=== PATIENT | male | born 1965 | race Caucasian/White ===

== ENCOUNTER → 2021-02-20 12:38 | Outpatient (BNVA) | payer OTHER, SELFPAY | PROVIDERS: PCP Internal Medicine; Visit Provider Nurse Practitioner Gerontology | DX: E11.42 Type 2 diabetes mellitus with diabetic polyneuropathy (principal); E11.65 Type 2 diabetes mellitus with hyperglycemia; E78.5 Hyperlipidemia, unspecified; I10 Essential (primary) hypertension | CPT/HCPCS: 99212 ==

== ENCOUNTER 2023-01-20 08:12 | Outpatient (REF) | payer OTHER, SELFPAY ==
[2023-01-20 08:31] LABS: MANUAL DIFF FLAG NO
[2023-01-20 08:45] LABS: Basophils Percent Auto 0.4 % (0-2); Eosinophils Absolute Auto 0.2 X10*3/uL (0.0-0.4); Eosinophils Percent Auto 1.5 % (0-4); Hematocrit 43.6 % (42.0-52.0); Imm Gran Abs Auto 0.03 X10*3/uL (0.00-0.03); Imm Gran Pct Auto 0.3 % (0.0-0.4); Lymphocytes Absolute Auto 2.1 X10*3/uL (1.2-4.9); Lymphocytes Percent Auto 20.2 % (20-40); Mean Corpuscular HGB Conc 34.4 g/dl (31.0-36.0); Mean Corpuscular Hemoglobin 30.4 pg (27.0-33.0); Mean Corpuscular Volume 88.4 fL (80.0-98.0); Mean Platelet Volume 10.2 fL (9.4-12.4); Monocytes Percent Auto 9.6 % (2-11); Neutrophils Absolute Auto 7.1 x10*3/uL (2.0-8.3); Platelet Count 230 X10*3/uL (160-400); Red Blood Count 4.93 X10*6/uL (4.60-5.80); Red Cell Distribution Width 13.9 % (11.0-16.0); White Blood Count 10.5 X10*3/uL (4.8-10.8)
[2023-01-20 09:15] LABS: Alanine Aminotransferase 15 U/L (0-40); Albumin Level 4.2 g/dL (3.5-5.0); Alkaline Phosphatase 61 U/L (39-117); Anion Gap 14 (12-20); Aspartate Amino Transferase 13 U/L (5-37); Blood Urea Nitrogen 15 mg/dL (9-16); Calcium 9.3 mg/dL (8.4-10.2); Carbon Dioxide 27 mmol/L (22-29); Chloride 100 mmol/L (96-108); Cholesterol 269 mg/dL; Estimated Glomerular Filt Rate > 60; Glucose Fasting 239 mg/dL (60-99); HDL Cholesterol 34 mg/dL; LDL Cholesterol Calculated 188 mg/dl; Potassium 4.5 mmol/L (3.3-5.1); Sodium 136 mmol/L (135-145); Total Protein 7.3 g/dL (6.5-8.0); Triglycerides 239 mg/dL
[2023-01-20 09:40] LABS: Creatinine Urine 158.31 mg/dL; Microalbum/Creatinine Ratio Ur 44.8 ug/mg cr
[2023-01-20 09:46] LABS: Folate 13.7 ng/mL (> or = 4.0); Vitamin B12 513 pg/mL (200-900)
== END 2023-01-20 08:13 | disposition home or self-care (01) ==
LOC: HO.LAB 08:12
PROVIDERS: PCP Internal Medicine; Visit Provider Internal Medicine
DX: Z00.00 Encounter for general adult medical examination without abnormal findings (principal); E11.42 Type 2 diabetes mellitus with diabetic polyneuropathy; E11.9 Type 2 diabetes mellitus without complications; Z13.0 Encounter for screening for diseases of the blood and blood-forming organs and certain disorders involving the immune mechanism
CPT/HCPCS: 36415; 80053; 80061; 82043; 82607; 82746; 84443; 85025

== ENCOUNTER 2024-02-13 11:51 | Outpatient (AMB) | payer OTHER, SELFPAY ==
--- NOTE | 2024-02-13 13:19 | MHC.OFFWIV ---
Intake Vital Signs 02/13/24 13:20 Height 5 ft 11 in BP 132/84 Blood Pressure Location Lt brachial Position Sitting Pulse 97 Pulse Source Pulse Oximeter Temp 98.2 F Temp Source Oral Pulse Oximetry (%) 99 Oxygen Delivery Method Room Air Intake Visit Reasons: EP: Diabetic: L foot swollen/redness Intake Note: pt saw his foot MD and had his toe nails trimmed and pt was told he had edema and his foot is now very swollen and tender and itchy and pt has been wearing compression stocking Patient Tobacco Use Status: Never used Tobacco Allergies liraglutide Adverse Reaction (Unknown, Verified 02/14/24 11:59) diarrhea HPI EP: Diabetic: L foot swollen/redness HPI Details Patient is 58-year-old male with history of diabetes who has been noncompliant with treatment for the last year, who comes to the walk-in clinic with worsening edema to the left foot, that is now becoming red sore and itchy. He states that he had become overwhelmed with taking care of his elderly father for the last year, and had lost track of following up with his diabetes management, as his cad designer drafter had left and he was not referred to a new provider. He last had his blood work checked a year ago by his primary care. He states that he has tried multiple medications in the past, but had to stop some due to GI side effects . He denies ever being started on insulin. He states that he did continue to follow up with Podiatry evaluation and nail care though, and had seen his laboratory chief a few weeks ago who had done x-rays to his left foot as he had some mild edema at that time, with no acute trauma known. He reports that the xrays were normal . He states that the laboratory chief had advised that he start wearing compression socks, but that the swelling had instead only worsened, and he was unable to tolerate the compression socks. No report of severe pain, numbness or tingling, fever or chills, nausea vomiting or diarrhea, dizziness or weakness, myalgias or malaise, or other significant associated symptoms. No history of gouty or other inflammatory arthritis reported. [facility] Medical History (Updated 02/15/24 @ 23:04 by Monika Santiago MD) Charcot's joint of foot due to diabetes Swelling of left foot Osteomyelitis of left foot Obesity Type 2 diabetes mellitus with diabetic polyneuropathy Hyperlipidemia LDL goal <100 Essential hypertension Diabetes mellitus with hyperglycemia Surgical History Hx of colonoscopy No history of previous surgery Family History Father No problems noted. Mother No problems noted. Social History Household Members: Family Household Members Other:: 1 Housing: House Patient Tobacco Use Status: Never used Tobacco Smoked in Last 30 Days: No e-Cigarette/Vaping Use: Never Used Patient Interested in Nicotine Replacement: No Patient Given Instructions on How to Stop Smoking: No Second Hand Smoke Exposure: No Use of substances other than those prescribed or required for medical reasons: No Currently Displaying Signs/Symptoms of Drug Intoxication Withdrawal: No Any prior treatment program specific to substance use: No Have you been hit, kicked, punched, or otherwise hurt by someone within the past year? If so, by whom?: No Do you feel safe in your current relationship?: No Current Relationship Is there a partner from a previous relationship who is making you feel unsafe now?: No Are you made to feel afraid or neglected: No Advance Directives: No Advance Directives Information Provided: No Do you have thoughts of harming others: None Do you have a plan to hurt others: No Plan Recently lost weight without trying: No Eating poorly because of decreased appetite: No Nutrition Risks: No Nutritional Risk Poor oral hygiene: No service: No Current occupational status: unemployed Cognitive needs: No Hearing needs: No Vision needs: No Review of Systems Const All systems reviewed & are unremarkable except as noted in HPI and below Physical Exam Vital Signs: Last Vital Signs Temp 98.2 F 02/13/24 13:20 Pulse 97 02/13/24 13:20 BP 132/84 02/13/24 13:20 Pulse Ox 99 02/13/24 13:20 Oxygen Delivery Method Room Air 02/13/24 13:20 Const General: cooperative, healthy appearing, comfortable, no acute distress, alert, awake, Physically active and well groomed; No anxious, diaphoretic, ill appearing, intoxicated appearing, poor hygiene or tired appearing Nutritional Appearance: average body habitus Limitations: no limitations Resp Effort & Inspection: normal respiratory effort Cardio Rate: regular rate Extrem Left lower extremity: foot (Very mild erythema over the ankle area) Details: normal capillary refill, abnormal to inspection, tenderness (Mild apparent tenderness diffusely), abnormal ROM of toe (Due to swelling), warmth, edema Location: of the dorsal foot and diffusely and vascular exam Details: posterior tibial pulse present and normal capillary refill; not cool and no cyanosis; abnormal to inspection Results AMB Hemoglobin A1c AMB Hemoglobin A1c 12.7 % Last Edit by Aaliyah Sutton CMA on 02/13/24 13:40 Results Reviewed Results Reviewed: Laboratory Last Values Hgb A1c (Clinic) 12.7 % (4.0-6.0) H 02/13/24 13:39 Assessment & Plan Assessment & Plan (1) Cellulitis of foot: Code(s): L03.119 - Cellulitis of unspecified part of limb Plan: Patient with uncontrolled diabetes due to non-compliance with diabetes management over the past year, who presents to the walk in with subacute left foot edema, mild erythema and tenderness/pruritis, with A1c 12.7. He does not have a history of gout or other inflammatory arthritis. He reports a foot x-ray that was apparently normal, but has had progressively worsening symptoms, and no further imaging. No gouty or other inflammatory arthritis history to explain presentation. We discussed that he has a worrisome looking foot in the setting of uncontrolled diabetes that is likely an infection, which could have deep tissue involvement, or even spread to his blood. I advised him that the best place for him for further evaluation and treatment, not only for his foot but also for his diabetic management, was at the emergency department. He stated that this was out of the question as his father just and the services would be in a few days , so he declined AMA. I told him that this could be limb and/or life threatening for him, and he stated that he did understand this. He pleaded to be treated with antibiotics outpatient to see if it would improve. I told him that I would start him on a course of antibiotics only if he agreed to get a CBC done today and to go to the emergency department ISABEL if there was no definite improvement by tomorrow, or if he had any worsening changes. He agreed to this. I told him that if he did not go to the ED over the weekend, then he definitely needs to follow up on Thursday (in 2 days), back at the walk in. He agreed to this also. Will reach out to him with lab results when available. Orders: Orders AMB Hemoglobin A1c 02/13/24 E11.65 - Type 2 diabetes mellitus with hyperglycemia Complete Blood Count Auto Diff 02/13/24.65 - Type 2 diabetes mellitus with hyperglycemia Basic Metabolic Panel Fasting 02/13/24.65 - Type 2 diabetes mellitus with hyperglycemia Medications: New cephalexin 500 mg PO QID 10 days 40 caps 0RF ketoconazole 2% Continue to apply until symptoms resolve, up to 2 weeks 1 appl topical BID 2 weeks 60 grams 0RF Coding Level of Care Code Est Pt Level 4 (82523) Diagnoses Cellulitis of foot L03.119
[2024-02-13 13:20] VITALS: BP 132/84; PULSE 97; TEMP 36.8; O2SAT 99
== END 2024-02-13 14:09 | disposition home or self-care (01) ==
PROVIDERS: PCP Internal Medicine; Visit Provider Physician Assistant Medical
DX: L03.119 Cellulitis of unspecified part of limb (principal); E11.65 Type 2 diabetes mellitus with hyperglycemia
CPT/HCPCS: 83036; 99051; 99214

== ENCOUNTER 2024-02-13 13:54 | Outpatient (REF) | payer OTHER, SELFPAY ==
[2024-02-13 15:23] LABS: MANUAL DIFF FLAG NO
[2024-02-13 15:33] LABS: Basophils Percent Auto 0.3 % (0-2); Eosinophils Absolute Auto 0.2 X10*3/uL (0.0-0.4); Eosinophils Percent Auto 1.8 % (0-4); Hematocrit 39.8 % (42.0-52.0); Hemoglobin 13.9 g/dl (14.0-18.0); Imm Gran Abs Auto 0.07 X10*3/uL (0.00-0.03); Imm Gran Pct Auto 0.6 % (0.0-0.4); Lymphocytes Absolute Auto 1.5 X10*3/uL (1.2-4.9); Lymphocytes Percent Auto 12.6 % (20-40); Mean Corpuscular HGB Conc 34.9 g/dl (31.0-36.0); Mean Corpuscular Volume 85.8 fL (80.0-98.0); Mean Platelet Volume 10.9 fL (9.4-12.4); Monocytes Absolute Auto 0.9 X10*3/uL (0.1-1.2); Monocytes Percent Auto 7.5 % (2-11); Neutrophils Absolute Auto 9.2 x10*3/uL (2.0-8.3); Neutrophils Percent Auto 77.2 % (45-73); Platelet Count 265 X10*3/uL (160-400); Red Blood Count 4.64 X10*6/uL (4.60-5.80); Red Cell Distribution Width 12.7 % (11.0-16.0); White Blood Count 11.9 X10*3/uL (4.8-10.8)
== END 2024-02-13 13:55 | disposition home or self-care (01) ==
LOC: HO.HMGCLDS 13:54
PROVIDERS: PCP Internal Medicine; Visit Provider Physician Assistant Medical
DX: E11.65 Type 2 diabetes mellitus with hyperglycemia (principal)
CPT/HCPCS: 36415; 85025

== ENCOUNTER 2024-02-14 11:56 | Inpatient (IN) | payer OTHER, SELFPAY ==
--- NOTE | ~2024-02-14 | XR_ITS ---
EXAMINATION: XR FOOT, LEFT CLINICAL INFORMATION: Cellulitis COMPARISON: None available. TECHNIQUE: AP, lateral, and oblique views of the left foot. FINDINGS: There is soft tissue swelling around the left foot tarsal and metatarsal level, no subcutaneous emphysema, no associated osteolytic changes to suggest osteomyelitis. Loss of midfoot arch suggesting pes planus. There is a large inferior calcaneal spur and soft tissue calcification along the plantar wrists. There is probably a fracture at the base of the second and third metatarsal difficult to visualize directly due to bone overlap. XR/XR foot LT min 3V IMPRESSION: 1. There are likely fractures at the base of the second and third metatarsal difficult to visualize directly due to bone overlap. Please correlate with patient's clinical history and Consider correlation with follow-up cross-sectional imaging CT scan or MRI for further investigation. 2. Soft tissue swelling around the left foot tarsal and metatarsal level. 3. No radiographic evidence of osteomyelitis. 4. Loss of midfoot arch suggesting pes planus. 5. Large inferior calcaneal spur.
--- NOTE | ~2024-02-14 | MR_ITS ---
EXAMINATION: MR FOOT WITHOUT AND WITH CONTRAST, LEFT CLINICAL INFORMATION: Question osteomyelitis on CT. COMPARISON: X-ray and CT 02/14/2024. TECHNIQUE: MRI of the left foot was performed before and after the intravenous administration of 10 mL Gadavist on a high-field scanner. FINDINGS: There is dislocation of the second-fifth tarsometatarsal joints, with dorsal and lateral dislocation of the metatarsals with respect to the cuneiform/cuboid. There is edema with bright-T2/low-T1 signal, extensively involving the bones. Diffuse edema signal in the medial cuneiform, middle cuneiform, lateral cuneiform; severe edema involving the proximal aspects of the second-fifth metatarsals; edema to a lesser degree more diffusely throughout the second and third metatarsals; diffuse severe edema in the navicular; diffuse cuboid edema. There is associated enhancement in the postcontrast sequences. Portions of the edematous bones are nonenhancing, such as in the middle cuneiform, portion of the lateral cuneiform, which may be related to decreased vascularity. Multiple edematous ossific densities in the region of the tarsometatarsal joints could reflect fractures versus bone fragmentation/destructive changes, involving the marginating bones such as the distal cuneiforms, bases of the second, third and fourth metatarsals (better characterized on the recent CT scan). There is evidence of impaction/impingement or deformity of the medial aspect of the distal medial navicular, and the lateral aspect of the cuboid. Differential considerations include osteomyelitis, Charcot arthropathy, posttraumatic etiology, or a combination of these. There is edema and enhancement in the surrounding soft tissues and muscles compatible with cellulitis/myositis. There is severe dorsal foot soft tissue swelling with edema/cellulitis. No organized fluid collection is seen in the superficial tissues. Visualized tendons intact. No appreciable tenosynovitis. Edema in the intrinsic muscles of the foot, could reflect myositis, sequela of denervation changes, or a combination of these. Visualized plantar aponeurosis is intact. MR/MR foot LT wo/w con IMPRESSION: 1. Comminuted fracture and dislocation of the second-fifth tarsometatarsal joints. Multiple ossific fragments in the Lisfranc joint could be related to fracture, bony fragmentation/destructive changes from the underlying pathology. Extensive severe edema and enhancement in the midfoot, including involving the cuneiforms, metatarsals, cuboid, navicular. Some of the edematous bones and nonenhancing, which could reflect sequela of decreased vascularity. Differential considerations for the extensive abnormality includes osteomyelitis, Charcot arthropathy, posttraumatic etiology, or a combination of these. Recommend clinical correlation and management. PET/CT, WBC bone scan can be considered for further evaluation as clinically warranted. 2. There is edema and enhancement in the soft tissues and muscles surrounding the midfoot, indicative of cellulitis, osteomyelitis. 3. Severe dorsal soft tissue swelling with edema/cellulitis. No organized fluid collection/abscess seen. 4. Edema in the intrinsic muscles of foot could reflect myositis or sequela of denervation. The report will be called to the ordering clinician by a [facility] Physician Herbicide Sprayer.
--- NOTE | ~2024-02-14 | CT_ITS ---
CT foot Clinical indication fractures tenderness COMPARISON: Prior x-ray same day earlier. TECHNIQUE: Computed axial, sagittal and coronal images acquired left foot, department's standard protocol. Radiation does 155 MG Y FINDINGS: Bones: There is a fracture or dislocation of the base of the second metatarsal, multiple bony fragments, raising concern for possible underlying superimposed process possible infection osteomyelitis in the right clinical setting. There are small bone fragments and subluxation of the base of the third metatarsal. There is also fracture impaction intertarsal of the medial cuneiform on the navicular bone. Lateral subluxation second third and fourth tarsometatarsal joints. The calcaneus is intact. Talus and subtalar joints are normal. The ankle is intact. There is large inferior and a small posterior calcaneal spurs. There is bone island in the calcaneus. Metatarsophalangeal and interphalangeal joints are normal. There is extensive soft tissue swelling along the dorsal aspect of the foot, could be cellulitis or edema. CT/CT foot LT wo IV con IMPRESSION: 1. Comminuted fracture/dislocation at the base of the second metatarsal, multiple bony fragments, raising concern for possible underlying or superimposed process possible infection osteomyelitis in the right clinical setting. 2. Small fracture/dislocation at the base of the third metatarsal. 3. Impaction fracture intertarsal medial cuneiform on the navicular bone. 4. Lateral subluxation of the second third and fourth tarsometatarsal joints. 5. Extensive soft tissue swelling along the dorsal aspect of the foot, could be cellulitis or edema. 6. Calcaneal spurs.
--- NOTE | ~2024-02-14 | US_ITS ---
EXAMINATION: US VENOUS ULTRASOUND WITH DOPPLER LOWER EXTREMITY, LEFT CLINICAL INFORMATION: Swelling COMPARISON: None available. TECHNIQUE: Ultrasound of the deep veins is performed from the hip to the calf with compression sonography and color and pulse Doppler assessment. Spectral analysis with color-flow imaging is performed. FINDINGS: There is normal venous compression and respiratory variation and augmented flow. The visualized common femoral vein, superficial femoral vein, profunda femoral vein, popliteal vein, and the trifurcation region shows no evidence of deep venous thrombosis. There is no significant popliteal fossa cyst. If the patient's symptoms persist, followup ultrasound in 5 days 7 days might be of value to exclude proximal propagation from a non-visualized calf vein. US/US venous duplex LE LT IMPRESSION: No DVT demonstrated in the left lower extremity.
[2024-02-14 11:59] VITALS: BP 158/69; PULSE 78; RESP 18; TEMP 36.6; O2SAT 99; BMI 30.3
--- NOTE | 2024-02-14 11:59 | ED_ITS ---
HPI - General Adult General Chief complaint: Extremity Injury, Lower Stated complaint: Swelling left foot Time Seen by Provider: 02/14/24 12:23 Source: patient Mode of arrival: ambulatory Limitations: no limitations History of Present Illness HPI narrative: 58-year-old male history of diabetes presents to the ED for left foot swollen and redness for the past 3 days. Patient was seen yesterday at urgent care and started on antibiotics. Patient denies any recent trauma to the foot, calf pain, chest pain, shortness of breath, recent long travel, or recent surgery. Related Data Home Medications Medication Instructions Recorded Confirmed cholecalciferol (vitamin D3) 125 125 mcg PO DAILY 02/14/24 02/14/24 mcg (5,000 unit) tablet (Vitamin D3) Previous Rx's Medication Instructions Recorded atenolol 50 mg tablet 50 mg PO DAILY #90 tabs 02/09/23 blood sugar diagnostic (FreeStyle #10 ea 04/24/23 Test strips) lancets 28 gauge (FreeStyle #100 ea 06/08/23 Lancets) glyburide 5 mg tablet See Rx Instructions PO .COMPLEX 30 06/15/23 days #270 tabs cephalexin 500 mg capsule 500 mg PO QID 10 days #40 caps 02/13/24 ketoconazole 2 % topical cream 1 appl topical BID 2 weeks #60 02/13/24 grams Allergies Allergy/AdvReac Type Severity Reaction Status Date / Time liraglutide AdvReac Unknown diarrhea Verified 02/14/24 11:59 Review of Systems 2 Review of Systems: Left foot pain swelling Yes all other systems are reviewed and are negative PMFSH Past Medical History Medical History (Updated 02/14/24 @ 20:33 by Jazzmine Huitron RN) Osteomyelitis of left foot Obesity Type 2 diabetes mellitus with diabetic polyneuropathy Hyperlipidemia LDL goal <100 Essential hypertension Diabetes mellitus with hyperglycemia Surgical History Hx of colonoscopy No history of previous surgery Family History Family History Father No problems noted. Mother No problems noted. Social History Social History Household Members: Family Household Members Other:: 1 Housing: House Patient Tobacco Use Status: Never used Tobacco Smoked in Last 30 Days: No e-Cigarette/Vaping Use: Never Used Patient Interested in Nicotine Replacement: No Patient Given Instructions on How to Stop Smoking: No Second Hand Smoke Exposure: No Use of substances other than those prescribed or required for medical reasons: No Currently Displaying Signs/Symptoms of Drug Intoxication Withdrawal: No Any prior treatment program specific to substance use: No Have you been hit, kicked, punched, or otherwise hurt by someone within the past year? If so, by whom?: No Do you feel safe in your current relationship?: No Current Relationship Is there a partner from a previous relationship who is making you feel unsafe now?: No Are you made to feel afraid or neglected: No Advance Directives: No Advance Directives Information Provided: No Do you have thoughts of harming others: None Do you have a plan to hurt others: No Plan Recently lost weight without trying: No Eating poorly because of decreased appetite: No Nutrition Risks: No Nutritional Risk Poor oral hygiene: No service: No Current occupational status: unemployed Cognitive needs: No Hearing needs: No Vision needs: No Physical Exam ED Vital Signs: Vital Signs - 24 hr 02/14/24 11:59 Temperature 97.9 F Pulse Rate 78 Respiratory Rate 18 Blood Pressure 158/69 H Pulse Oximetry 99 BMI result Body Mass Index 30.3 Const General: cooperative, healthy appearing, comfortable, no acute distress, well developed, alert, awake and Physically active Orientation/consciousness: oriented to person, oriented to place and oriented to time [facility] Head: Yes normal to inspection, Yes No palpable skull fracture present, Yes normocephalic, Yes atraumatic and No abrasion Eyes General: appearance normal, both eyes and all related structures Neck Neck: Yes normal visual inspection, Yes full ROM, Yes no lymphadenopathy, Yes no meningeal signs, Yes trachea midline, Yes supple, No anterior neck swelling and No tender Chest Chest palpation & inspection: normal inspection of the chest and normal palpation of entire chest wall Resp Effort & Inspection: normal respiratory effort and able to speak in complete sentences Auscultation: clear to auscultation bilaterally Cardio Jugular venous distension: no JVD Heart sounds: S1 normal heart sound present and S2 normal heart sound present GI Inspection: Yes normal to inspection Palpation (GI): Soft to palpation, not firm, nontender, no guarding and not rigid General: No CVA tenderness Back/Spine/Pelvis Back: No CVA tenderness and No back tenderness Skin General skin exam: no rashes or lesions noted, elasticity normal and turgor normal Neuro General: oriented to person, oriented to place, oriented to time, gait normal, tone normal, moves all extremities, Normal light touch and pain sensation, no meningeal signs, no focal motor deficits, CN's II-XI intact bilaterally and normal sensation to monofilament Extrem Other: positive for warmth, swelling, and redness. Vascular/ motor/neuro exam intact Psych Appearance: grossly normal, well kempt and not disheveled Course Course Course Narrative: This is an RME: Additional HPI, ROS, PE not included below will be deferred to primary provider. Patient is a 58-year-old male who presents emergency department for evaluation swelling of the left foot x2 weeks. He went to an urgent care yesterday where he was started on antibiotics, reports some mild decrease in swelling, but he reports the warmth has increased thus prompting him to come to ED. Pain 2/10. noted extension of redness past the marked region. Medications Administered Generic Name Dose Route Start Last Admin Trade Name Freq PRN Reason Stop Dose Admin Atenolol 50 mg 02/15/24 09:00 02/15/24 08:11 Atenolol 50 Mg Tablet PO 50 mg DAILY TERRENCE Administration Protocol Clotrimazole 1 appl 02/14/24 21:00 02/15/24 20:27 Clotrimazole 1 % Cream 15 Gm Tube TOPICAL 1 appl BID TERRENCE Administration Enoxaparin Sodium 40 mg 02/14/24 16:30 02/15/24 16:21 Enoxaparin Sodium 40 Mg/0.4 Ml Syringe SUBCUT Not Given Q24H TERRENCE Piperacillin Sod/Tazobactam 100 mls @ 200 mls/hr 02/14/24 19:30 02/15/24 21:00 Sod 4.5 gm/ Sodium Chloride IV Infused Q6H TERRENCE Infusion Vancomycin HCl 750 mg/ Sodium 265 mls @ 265 mls/hr 02/15/24 17:00 02/15/24 18:49 Chloride IV Infused Q8H TERRENCE Infusion Insulin Human Lispro 0 unit 02/14/24 21:00 02/15/24 20:48 Insulin Lispro 100 Unit/Ml 3 Ml Vial SUBCUT Not Given QIDACHS REPLACED BY [facility] Protocol Metformin HCl 500 mg 02/15/24 17:00 02/15/24 16:55 Metformin Hcl 500 Mg Tablet PO Not Given BIDWM REPLACED BY [facility] Sodium Chloride 3 ml 02/15/24 00:00 02/15/24 20:23 0.9 % Sodium Chloride Flush 3 Ml Syringe IVFLUSH 3 ml QSHIFT TERRENCE Administration Vitamin D 125 mcg 02/15/24 09:00 02/15/24 08:11 Cholecalciferol (Vitamin D3) 25 Mcg Tablet PO 125 mcg DAILY REPLACED BY [facility] Administration Discontinued Medications Generic Name Dose Route Start Last Admin Trade Name Cecilia PRN Reason Stop Dose Admin Gadobutrol 10 ml 02/15/24 12:46 02/15/24 12:47 Gadobutrol 10 Ml Vial IVPUSH 02/15/24 12:47 10 ml ONCE ONE Administration Sodium Chloride 1,000 mls @ 999 mls/hr 02/14/24 13:00 02/14/24 14:18 Ns IV 02/14/24 14:00 Infused .Q1H1M STA Infusion Piperacillin Sod/Tazobactam 50 mls @ 100 mls/hr 02/14/24 13:25 02/14/24 14:18 Sod 3.375 gm/ Sodium Chloride IV 02/14/24 13:54 Infused ONCE ONE Infusion Vancomycin HCl 2,000 mg in 500 mls @ 250 mls/hr 02/15/24 08:00 02/15/24 11:53 Vancomycin/Ns IV 02/15/24 09:59 Infused ONCE ONE Infusion Insulin Glargine 24 unit 02/14/24 21:00 02/14/24 22:08 Insulin Glargine,Hum.Rec.Anlog 100 Unit/Ml 10 Ml Vial SUBCUT 24 unit BEDTIME TERRENCE Administration Medical Decision Making Medical Decision Making MDM Narrative: 58-year-old male with left foot swelling and redness appear as cellulitis x-ray labs ordered. ESR CRP added. Ultrasound lower extremity attitude rule out DVT. As per patient REdness passed the marker placed yesterday at urgent care. 3:45: CT scan showed fractures with osteomyelitits. Spoke With SHAILESH BUCHANAN who states patient could be admitted to [facility]. Dr. Ulloa Accepted the case for admission. Patient given antibiotics. Patient recieved fluids. Differential Diagnosis Differential Diagnoses: The differential diagnosis associated with the presentation includes (cellullits, osteomyelitits, fracture, DVT) Admission/Observation Consideration of admission/observation: Escalation of care including admission/observation considered Consult Healthcare Provider Management of the patient was discussed with: Hospitalist (Dr. Ulloa) and Russian Language Professor (SHAILESH BUCHANAN) Lab Data MDM Lab Attestation statement: I reviewed the patient's lab results. 02/15/24 06:06 02/15/24 06:06 Labs: Lab Results 02/14/24 02/14/24 02/14/24 Range/Units 12:22 12:58 15:51 WBC 12.1 H (4.8-10.8) X10*3/uL RBC 4.77 (4.60-5.80) X10*6/uL Hgb 14.1 (14.0-18.0) g/dl Hct 39.9 L (42.0-52.0) % MCV 83.6 (80.0-98.0) fL MCH 29.6 (27.0-33.0) pg MCHC 35.3 (31.0-36.0) g/dl RDW 12.5 (11.0-16.0) % Plt Count 324 (160-400) X10*3/uL MPV 9.8 (9.4-12.4) fL Immature Gran % (Auto) 0.3 (0.0-0.4) % Neut % (Auto) 75.3 H (45-73) % Lymph % (Auto) 14.6 L (20-40) % [place] % (Auto) 7.1 (2-11) % Eos % (Auto) 2.3 (0-4) % Baso % (Auto) 0.4 (0-2) % Lymph # (Auto) 1.8 (1.2-4.9) X10*3/uL [place] # (Auto) 0.9 (0.1-1.2) X10*3/uL Eos # (Auto) 0.3 (0.0-0.4) X10*3/uL Baso # (Auto) 0.1 (0.0-0.2) X10*3/uL Abs Immat Gran (auto) 0.04 H (0.00-0.03) X10*3/uL Absolute Neuts (auto) 9.1 H (2.0-8.3) x10*3/uL Absolute Nucleated RBC 0.000 (0.0-0.012) X10*3/uL Nucleated RBC % (auto) 0.0 (0.0-0.2) /100WBC ESR 86 H (0-15) MM/HR Sodium 132 L (135-145) mmol/L Potassium 4.5 (3.3-5.1) mmol/L Chloride 98 (96-108) mmol/L Carbon Dioxide 26 (22-29) mmol/L Anion Gap 13 (12-20) BUN 9 (9-16) mg/dL Creatinine 1.13 (0.5-1.4) mg/dL Estim Creat Clear Calc 84.7 Estimated GFR > 60 POC Glucose 258 H (60-115) mg/dL Random Glucose 419 H* (60-115) mg/dL Lactic Acid 2.1 H* (0.5-2.0) mmol/L Lactic Acid F/U @ 2Hr 1.0 (0.5-2.0) mmol/L Calcium 10.1 D (8.4-10.2) mg/dL C-Reactive Protein 13.30 H (< or = 0.50) mg/dL Independent Interpretation I performed an independent interpretation of an: Plain X-Ray and CT Scan Radiology Impression Discussion of test interpretation with radiology: I have reviewed the radiologist's reading. Independent Historian Clinical information obtained from an independent historian. History obtained from or confirmed by: Other (Brother Pancho) External Record Review External record reviewed: Other (Prior visits) Prescription Management I considered prescription management with: Antibiotic Critical Care Time Critical Care Time Critical Care Time: Yes Total Critical Care Time: 60 Attestation: IV fluids and antiboics given for CT scan reading of osteomylitits. Discuus with Ortho and [facility]list Discharge Plan Discharge Clinical Impression: Osteomyelitis Patient Disposition: Admitted As Inpatient Interventions: Admission Worksheet (ED) Last Done: 02/14/24 19:56 Discharge Date/Time: 02/14/24 20:33
[2024-02-14 12:25] LABS: MANUAL DIFF FLAG NO
[2024-02-14 12:26] LABS: Basophils Absolute Auto 0.1 X10*3/uL (0.0-0.2); Basophils Percent Auto 0.4 % (0-2); Eosinophils Absolute Auto 0.3 X10*3/uL (0.0-0.4); Eosinophils Percent Auto 2.3 % (0-4); Hematocrit 39.9 % (42.0-52.0); Hemoglobin 14.1 g/dl (14.0-18.0); Imm Gran Abs Auto 0.04 X10*3/uL (0.00-0.03); Imm Gran Pct Auto 0.3 % (0.0-0.4); Lymphocytes Absolute Auto 1.8 X10*3/uL (1.2-4.9); Lymphocytes Percent Auto 14.6 % (20-40); Mean Corpuscular HGB Conc 35.3 g/dl (31.0-36.0); Mean Corpuscular Hemoglobin 29.6 pg (27.0-33.0); Mean Corpuscular Volume 83.6 fL (80.0-98.0); Mean Platelet Volume 9.8 fL (9.4-12.4); Monocytes Absolute Auto 0.9 X10*3/uL (0.1-1.2); Monocytes Percent Auto 7.1 % (2-11); Neutrophils Absolute Auto 9.1 x10*3/uL (2.0-8.3); Neutrophils Percent Auto 75.3 % (45-73); Platelet Count 324 X10*3/uL (160-400); Red Blood Count 4.77 X10*6/uL (4.60-5.80); Red Cell Distribution Width 12.5 % (11.0-16.0); White Blood Count 12.1 X10*3/uL (4.8-10.8)
[2024-02-14 12:52] LABS: Anion Gap 13 (12-20); Blood Urea Nitrogen 9 mg/dL (9-16); Calcium 10.1 mg/dL (8.4-10.2); Carbon Dioxide 26 mmol/L (22-29); Chloride 98 mmol/L (96-108); Creatinine Clr Calc Pharmacy 84.7; Estimated Glomerular Filt Rate > 60; Glucose Random 419 mg/dL (60-115); Potassium 4.5 mmol/L (3.3-5.1); Sodium 132 mmol/L (135-145)
[2024-02-14] MEDS: 0.9 % Sodium Chloride 1,000 ML 999 ML IV (13:09)
[2024-02-14 13:25] LABS: Lactic Acid 2.1 mmol/L (0.5-2.0)
[2024-02-14] MEDS: Piperacillin Sodium/Tazobactam 3.375 GM in 0.9 % Sodium Chloride 50 ML IV (13:40)
[2024-02-14 13:56] LABS: Erythrocyte Sedimentation Rate 86 MM/HR (0-15)
[2024-02-14 15:03] LABS: Reflex Lactate? Lactic Acid Added
[2024-02-14 15:56] LABS: Glucose, Whole Blood 258 mg/dL (60-115)
[2024-02-14 16:21] VITALS: BP 154/87; PULSE 74; RESP 19; TEMP 37.1; O2SAT 99
--- NOTE | 2024-02-14 16:29 | PHA.MEDREC ---
Pharmacy Consult ? Medication Reconciliation Pharmacy has completed the medication reconciliation.
--- NOTE | 2024-02-14 16:36 | PC.NURSE ---
patient alert and oriented, respirations even and unlabored. resting quietly in room. medicated per the MAR - plan for admission patient aware of plan.
--- NOTE | 2024-02-14 16:38 | PM.IMHP ---
History of Present Illness Date of Service: 02/14/24 Attending physician on admission: Damien Chacon Chief Complaint: foot infection/swelling 58 year old male with history of uncontrolled non insulin dependent type 2 diabetes , hld, htn, who is obese with BMI>30 presented to the ED earlier today for evaluation of left foot infection. He does not recall any specific injury but does feel he may have injured his left foot about 2 weeks ago possibly against his father's hospital bed. Since then has had gradually worsening swelling. He was seen by his chemical laboratory scientist with negative xrays at the time and advised to use compression stockings. Over the last few days has had worsening swelling, redness, pruritus. Was seen in urgent care yesterday and was started on keflex which he has been taking as prescribed. Today noticed erythema spreading far beyond the skin marker from the urgent care and came for reevaluation. Denies any fevers, chills, skin breaks, purulent drainage. Has been able to bear weight and reports 2/10 pain. On arrival, VSS though slightly hypertensive at 154/87 on admission. There is a leukocytosis 12.1. Renal function and lytes normal except for Na 132. Initial glucose 419 improved to 258 with IVF. Initial lactic acid 2.1, repeat 1.0. CRP 13.3, ESR 86. Venous duplex LLE negative for DVT. CT left foot shows a comminuted fracture/dislocation at the base of the 2nd metatarsal, multiple bony fragments, raising concern for underlying vs superimposed process possible infection osteomyelitis in the right clinical setting. there is also a small fracture/dislocation base of 3rd metatarsal and impaction fracture intertarsal medial cuneiform of the navicular bone as well as lateral subluxation of the 2nd, 3rd, and 4th tarsometatarsal joints and extensive soft tissue swelling. In the Ed, given 1 L IV NS and iv zosyn. Review of Systems Review of Systems: Yes all other systems are reviewed and are negative [facility] Medical History (Updated 02/14/24 @ 17:13 by CHANEL Hairston) Osteomyelitis of left foot Obesity Type 2 diabetes mellitus with diabetic polyneuropathy Hyperlipidemia LDL goal <100 Essential hypertension Diabetes mellitus with hyperglycemia Family History Father No problems noted. Mother No problems noted. Surgical History Hx of colonoscopy No history of previous surgery Social History Household Members: Family Housing: House Patient Tobacco Use Status: Never used Tobacco e-Cigarette/Vaping Use: Never Used Second Hand Smoke Exposure: No Advance Directives: No Advance Directives Information Provided: No service: No Current occupational status: unemployed Cognitive needs: No Hearing needs: No Vision needs: No Meds Allergies Allergy/AdvReac Type Severity Reaction Status Date / Time liraglutide AdvReac Unknown diarrhea Verified 02/14/24 11:59 Active Medications: Current Medications Acetaminophen (Acetaminophen 325 Mg Tablet) 650 mg PO Q6H PRN PRN Reason: Pain, Mild (Pain Scale 1-3) Atenolol (Atenolol 50 Mg Tablet) 50 mg PO DAILY [facility]; Protocol Dextrose (Dextrose 50 % 25 Gm/50 Ml Syringe) 25 gm IVPUSH Q15M PRN; Protocol PRN Reason: per Hypoglycemia Standing Ord. Enoxaparin Sodium (Enoxaparin Sodium 40 Mg/0.4 Ml Syringe) 40 mg SUBCUT Q24H [facility] Glucose (Glucose Gel 15 Gm Gel..Gram.) 15 gm PO Q15M PRN; Protocol PRN Reason: per Hypoglycemia Standing Ord. Piperacillin Sod/Tazobactam (Sod 4.5 gm/ Sodium Chloride) 100 mls @ 200 mls/hr IV Q6H [facility] [place] Insulin Glargine (Insulin Glargine,Hum.Rec.Anlog 100 Unit/Ml 10 Ml Vial) 24 unit SUBCUT BEDTIME [facility] Insulin Human Lispro (Insulin Lispro 100 Unit/Ml 3 Ml Vial) 0 unit SUBCUT QIDACHS [facility]; Protocol Non-Formulary Medication (Ketoconazole) 1 appl TOPICAL BID [facility] Ondansetron HCl (Ondansetron Hcl 4 Mg/2 Ml Vial) 4 mg IVPUSH Q8H PRN PRN Reason: Nausea and Vomiting Senna (Sennosides 8.6 Mg Tablet) 17.2 mg PO BEDTIME PRN PRN Reason: Constipation Sodium Chloride (0.9 % Sodium Chloride Flush 3 Ml Syringe) 3 ml IVFLUSH QSHIFT [facility] Vitamin D (Cholecalciferol (Vitamin D3) 25 Mcg Tablet) 125 mcg PO DAILY [facility] Home Medications Medication Instructions Recorded Confirmed Last Taken Type cholecalciferol (vitamin D3) 125 125 mcg PO DAILY 02/14/24 02/14/24 Unknown History mcg (5,000 unit) tablet (Vitamin D3) Physical Exam Vital Signs and Narrative: Vital Signs: Last Vital Signs Temp 98.8 F 02/14/24 16:21 Pulse 74 02/14/24 16:21 Resp 19 02/14/24 16:21 BP 154/87 H 02/14/24 16:21 Pulse Ox 99 02/14/24 16:21 O2 Del Method Room Air 02/14/24 16:21 BMI result Body Mass Index 30.3 Constitutional - Awake and Alert, No apparent distress Eyes - PERRLA, EOMI Cardiovascular - S1S2, RRR, 1+ edema left foot Respiratory - Normal lung expansion, Normal respiratory effort, No respiratory distress, CTA bilaterally Gastrointestinal - NT / ND; +BS; No rebound or guarding Extremities - no calf tenderness bilaterally, no calf swelling Musculoskeletal - swelling LLE, weight bearing, ttp over the dorsum of the left foot. full rom toes and ankle Skin - Warm/Dry. Erythema and slight warmth left foot. Dried crusting patches at the base of the toes of the feet bilaterally Neurological - Alert & oriented x3 Psychological - Appropriate affect Results Labs 02/14/24 12:22 02/14/24 12:22 Labs: Laboratory Results - last 24 hr 02/14/24 02/14/24 02/14/24 12:22 12:58 15:51 MCV 83.6 MCH 29.6 MCHC 35.3 RDW 12.5 Plt Count 324 MPV 9.8 Immature Gran % (Auto) 0.3 Neut % (Auto) 75.3 H Lymph % (Auto) 14.6 L [place] % (Auto) 7.1 Eos % (Auto) 2.3 Baso % (Auto) 0.4 Lymph # (Auto) 1.8 [place] # (Auto) 0.9 Eos # (Auto) 0.3 Baso # (Auto) 0.1 Abs Immat Gran (auto) 0.04 H Absolute Neuts (auto) 9.1 H Absolute Nucleated RBC 0.000 Nucleated RBC % (auto) 0.0 ESR 86 H Anion Gap 13 Estim Creat Clear Calc 84.7 Estimated GFR > 60 POC Glucose 258 H Random Glucose 419 H* Lactic Acid 2.1 H* Lactic Acid F/U @ 2Hr 1.0 Calcium 10.1 D C-Reactive Protein 13.30 H Imaging Radiologist's Impressions: Impressions Foot X-Ray 02/14/24 12:18 IMPRESSION: 1. There are likely fractures at the base of the second and third metatarsal difficult to visualize directly due to bone overlap. Please correlate with patient's clinical history and Consider correlation with follow-up cross-sectional imaging CT scan or MRI for further investigation. 2. Soft tissue swelling around the left foot tarsal and metatarsal level. 3. No radiographic evidence of osteomyelitis. 4. Loss of midfoot arch suggesting pes planus. 5. Large inferior calcaneal spur. Foot CT 02/14/24 13:53 IMPRESSION: 1. Comminuted fracture/dislocation at the base of the second metatarsal, multiple bony fragments, raising concern for possible underlying or superimposed process possible infection osteomyelitis in the right clinical setting. 2. Small fracture/dislocation at the base of the third metatarsal. 3. Impaction fracture intertarsal medial cuneiform on the navicular bone. 4. Lateral subluxation of the second third and fourth tarsometatarsal joints. 5. Extensive soft tissue swelling along the dorsal aspect of the foot, could be cellulitis or edema. 6. Calcaneal spurs. Venous Duplex 02/14/24 14:35 IMPRESSION: No DVT demonstrated in the left lower extremity. Assessment and Plan (1) Cellulitis of left foot: Status: Acute (2) Osteomyelitis of left foot: Status: Acute (3) Comminuted fracture: Status: Acute (4) Closed navicular fracture of left foot: Status: Acute (5) Uncontrolled type 2 diabetes mellitus with hyperglycemia: Status: Acute Plan 58 year old male with history of uncontrolled non insulin dependent type 2 diabetes , hld, htn, who is obese with BMI>30 admitted for further management of cellulitis and osteomyelitis L foot. #Acute cellulitis and osteomyelitis L foot -following suspected trauma to left foot. -esr 86, crp 13.3. CT with evidence of osteomyelitis likely related to acute cellulitic infection with multiple fractures in the left foot -iv zosyn (initiated 02/13) -ID consult -Follow cbc, cultures #Multiple fractures left foot -ct left foot shows comminuted fx base 2nd metatarsal, fx/dislocation base 3rd metatarsal, impaction fracture intertarsal medial cuneiform on the navicular bone and lateral subluxation of the 2nd, 3rd, and 4th tarsometatarsal joints -ortho consult -pain management prn #Uncontrolled non insulin dependent type 2 dm with hyperglycemia -hgb a1c 12.7%, goal <7.0% -initiate 24 units lantus nightly -lispro ssi -poc glucose, diabetic diet #HTN -continue atenolol #Tinea pedis, bilateral -ketoconazole bid dvt prophylaxis- lovenox full code pt requires inpt stay at least 2 midnights for management of acute cellulitis and osteomyelitis in uncontrolled diabetic requiring iv abx, expert consulation, as well as negative blood cultures for placement of midline for prolonged abx therapy Quality Stroke Does the patient have a stroke diagnosis?: No VTE Prior VTE?: No VTE Risk Level:: Medical - moderate - high VTE Device Contraindication: Treatment Not Indicated VTE Drug Contraindication: N/A - Med Ordered
[2024-02-14] MEDS: Piperacillin Sodium/Tazobactam 4.5 GM in 0.9 % Sodium Chloride 100 ML IV (18:29)
[2024-02-14 18:57] VITALS: BP 124/73; PULSE 73; RESP 18; TEMP 36.8; O2SAT 100
[2024-02-14 20:54] LABS: Glucose, Whole Blood 268 mg/dL (60-115)
[2024-02-14] MEDS: Insulin Glargine,Hum.rec.anlog 100 UNIT/ML 10 ML VIAL 24 UNIT SUBCUT (22:08)
[2024-02-14] MEDS: Insulin Lispro 100 UNIT/ML 3 ML VIAL SUBCUT (22:08)
[2024-02-14] MEDS: 0.9 % Sodium Chloride Flush 3 ML SYRINGE IVFLUSH (22:08)
[2024-02-14] MEDS: Clotrimazole 1 % Cream 15 GM TUBE 1 APPL TOPICAL (22:40)
[2024-02-14 23:17] VITALS: BP 129/79; PULSE 75; RESP 18; TEMP 36.2; O2SAT 98
[2024-02-15] MEDS: Piperacillin Sodium/Tazobactam 4.5 GM in 0.9 % Sodium Chloride 100 ML IV ×4 (01:11→20:23)
[2024-02-15 01:45] VITALS: BP 110/65; PULSE 72; RESP 18; TEMP 36.8; O2SAT 97
[2024-02-15 06:26] LABS: MANUAL DIFF FLAG NO
--- NOTE | 2024-02-15 06:32 | PC.NURSE ---
pt AOx4, throughout the night pt went to BR without problem. pt states that it feels better after zoysn received. no pressure feeling on the foot. provided walker, elevated the left leg. no issues at night. will cont. to monitor.
[2024-02-15 06:35] LABS: Basophils Absolute Auto 0.1 X10*3/uL (0.0-0.2); Basophils Percent Auto 0.4 % (0-2); Eosinophils Absolute Auto 0.3 X10*3/uL (0.0-0.4); Eosinophils Percent Auto 2.4 % (0-4); Hematocrit 34.9 % (42.0-52.0); Hemoglobin 12.4 g/dl (14.0-18.0); Imm Gran Abs Auto 0.06 X10*3/uL (0.00-0.03); Imm Gran Pct Auto 0.5 % (0.0-0.4); Lymphocytes Absolute Auto 2.1 X10*3/uL (1.2-4.9); Lymphocytes Percent Auto 18.7 % (20-40); Mean Corpuscular HGB Conc 35.5 g/dl (31.0-36.0); Mean Corpuscular Hemoglobin 30.1 pg (27.0-33.0); Mean Corpuscular Volume 84.7 fL (80.0-98.0); Mean Platelet Volume 10.1 fL (9.4-12.4); Monocytes Absolute Auto 0.9 X10*3/uL (0.1-1.2); Monocytes Percent Auto 7.6 % (2-11); Neutrophils Absolute Auto 7.9 x10*3/uL (2.0-8.3); Neutrophils Percent Auto 70.4 % (45-73); Platelet Count 281 X10*3/uL (160-400); Red Blood Count 4.12 X10*6/uL (4.60-5.80); Red Cell Distribution Width 12.6 % (11.0-16.0); White Blood Count 11.3 X10*3/uL (4.8-10.8)
[2024-02-15 06:57] LABS: Anion Gap 11 (12-20); Blood Urea Nitrogen 8 mg/dL (9-16); Calcium 9.4 mg/dL (8.4-10.2); Carbon Dioxide 27 mmol/L (22-29); Chloride 105 mmol/L (96-108); Estimated Glomerular Filt Rate > 60; Glucose Random 127 mg/dL (60-115); Sodium 139 mmol/L (135-145)
[2024-02-15 07:23] VITALS: BP 128/73; PULSE 75; RESP 16; TEMP 37.2; O2SAT 98
[2024-02-15 07:51] LABS: Glucose, Whole Blood 154 mg/dL (60-115)
[2024-02-15] MEDS: 0.9 % Sodium Chloride Flush 3 ML SYRINGE IVFLUSH ×3 (08:11→20:23)
[2024-02-15] MEDS: Insulin Lispro 100 UNIT/ML 3 ML VIAL SUBCUT ×2 (08:11→17:11)
[2024-02-15] MEDS: Cholecalciferol (Vitamin D3) 25 MCG TABLET 125 MCG PO (08:11)
[2024-02-15] MEDS: atenoloL 50 MG TABLET PO (08:11)
[2024-02-15] MEDS: Clotrimazole 1 % Cream 15 GM TUBE 1 APPL TOPICAL ×2 (08:15→20:27)
--- NOTE | 2024-02-15 08:39 | PM.CNOR ---
History of Present Illness HPI Consult date: 02/15/24 Chief complaint: Cellulitis,osteomyelitis left foot Narrative: 58 year old male with history of uncontrolled non insulin dependent type 2 diabetes , hld, htn, who is obese with BMI>30 admitted to the medical service for continued tx and iv abx for left foot infection. He does not recall any specific injury but does feel he may have injured his left foot about 2 weeks ago possibly against his father's hospital bed. Since then has had gradually worsening swelling. He was seen by his aboriginal education teacher with negative xrays at the time and advised to use compression stockings. Over the last few days has had worsening swelling, redness, pruritus. Was seen in urgent care two days ago and was started on keflex which he has been taking as prescribed. Prior to admission, he noticed erythema spreading far beyond the skin marker from the urgent care which prompted him to be seen in the ED. Orthopedics was consulted for further recommendations Review of Systems Review of Systems: Yes all other systems are reviewed and are negative PMFSH Past Medical History Medical History (Updated 02/21/24 @ 00:01 by Jose Reynolds) Uncontrolled type 2 diabetes mellitus with hyperglycemia Charcot's joint of foot due to diabetes Swelling of left foot Osteomyelitis of left foot Obesity Type 2 diabetes mellitus with diabetic polyneuropathy Hyperlipidemia LDL goal <100 Essential hypertension Diabetes mellitus with hyperglycemia Family History Family History Father No problems noted. Mother No problems noted. Surgical History Surgical History Hx of colonoscopy No history of previous surgery Social History Social History Household Members: Family Household Members Other:: 1 Housing: House Patient Tobacco Use Status: Never used Tobacco e-Cigarette/Vaping Use: Never Used Second Hand Smoke Exposure: No service: No Current occupational status: unemployed Cognitive needs: No Hearing needs: No Vision needs: No Meds Allergies Allergy/AdvReac Type Severity Reaction Status Date / Time liraglutide AdvReac Unknown diarrhea Verified 02/14/24 11:59 Active Medications: Current Medications Acetaminophen (Acetaminophen 325 Mg Tablet) 650 mg PO Q6H PRN PRN Reason: Pain, Mild (Pain Scale 1-3) Atenolol (Atenolol 50 Mg Tablet) 50 mg PO DAILY [facility]; Protocol Last Admin: 02/15/24 08:11 Dose: 50 mg Clotrimazole (Clotrimazole 1 % Cream 15 Gm Tube) 1 appl TOPICAL BID [facility] Last Admin: 02/15/24 08:15 Dose: 1 appl Dextrose (Dextrose 50 % 25 Gm/50 Ml Syringe) 25 gm IVPUSH Q15M PRN; Protocol PRN Reason: per Hypoglycemia Standing Ord. Enoxaparin Sodium (Enoxaparin Sodium 40 Mg/0.4 Ml Syringe) 40 mg SUBCUT Q24H [facility] Last Admin: 02/14/24 18:26 Dose: Not Given Glucose (Glucose Gel 15 Gm Gel..Gram.) 15 gm PO Q15M PRN; Protocol PRN Reason: per Hypoglycemia Standing Ord. Piperacillin Sod/Tazobactam (Sod 4.5 gm/ Sodium Chloride) 100 mls @ 200 mls/hr IV Q6H [facility] Last Admin: 02/15/24 08:12 Dose: 200 mls/hr Vancomycin HCl (Vancomycin/Ns) 2,000 mg in 500 mls @ 250 mls/hr IV ONCE ONE Stop: 02/15/24 09:59 Insulin Glargine (Insulin Glargine,Hum.Rec.Anlog 100 Unit/Ml 10 Ml Vial) 24 unit SUBCUT BEDTIME [facility] Last Admin: 02/14/24 22:08 Dose: 24 unit Insulin Human Lispro (Insulin Lispro 100 Unit/Ml 3 Ml Vial) 0 unit SUBCUT QIDACHS [facility]; Protocol Last Admin: 02/15/24 08:11 Dose: 2 unit Ondansetron HCl (Ondansetron Hcl 4 Mg/2 Ml Vial) 4 mg IVPUSH Q8H PRN PRN Reason: Nausea and Vomiting Pharmacy Consult (Consult Rx Vancomycin Dosing) 1 each MISCELLANE DAILY PRN PRN Reason: Consult order Senna (Sennosides 8.6 Mg Tablet) 17.2 mg PO BEDTIME PRN PRN Reason: Constipation Sodium Chloride (0.9 % Sodium Chloride Flush 3 Ml Syringe) 3 ml IVFLUSH QSHIFT [facility] Last Admin: 02/15/24 08:11 Dose: 3 ml Vitamin D (Cholecalciferol (Vitamin D3) 25 Mcg Tablet) 125 mcg PO DAILY [facility] Last Admin: 02/15/24 08:11 Dose: 125 mcg Home Medications ?Medication ?Instructions ?Recorded ?Confirmed ?Last Taken ?Type cholecalciferol (vitamin D3) 125 125 mcg PO DAILY 02/14/24 02/14/24 Unknown History mcg (5,000 unit) tablet (Vitamin D3) Physical Exam Vital Signs: Vital Signs: Last Vital Signs Temp 98.9 F 02/15/24 07:23 Pulse 75 02/15/24 07:23 Resp 16 02/15/24 07:23 BP 128/73 02/15/24 07:23 Pulse Ox 98 02/15/24 07:23 O2 Del Method Room Air 02/15/24 07:23 BMI result Body Mass Index 30.0 Extrem: Other: Left foot deformity noted (consistent with Charcot joint) erythema and mild discomfort. No open wounds or abscess formation, nvi. Results Labs 02/16/24 05:03 02/16/24 05:03 Labs: Abnormal lab results 02/14/24 02/14/24 02/14/24 Range/Units 12:22 12:58 15:51 WBC 12.1 H (4.8-10.8) X10*3/uL RBC (4.60-5.80) X10*6/uL Hgb (14.0-18.0) g/dl Hct 39.9 L (42.0-52.0) % Immature Gran % (Auto) (0.0-0.4) % Neut % (Auto) 75.3 H (45-73) % Lymph % (Auto) 14.6 L (20-40) % Abs Immat Gran (auto) 0.04 H (0.00-0.03) X10*3/uL Absolute Neuts (auto) 9.1 H (2.0-8.3) x10*3/uL ESR 86 H (0-15) MM/HR Sodium 132 L (135-145) mmol/L Anion Gap (12-20) BUN (9-16) mg/dL POC Glucose 258 H (60-115) mg/dL Random Glucose 419 H* (60-115) mg/dL Lactic Acid 2.1 H* (0.5-2.0) mmol/L C-Reactive Protein 13.30 H (< or = 0.50) mg/dL 02/14/24 02/15/24 02/15/24 Range/Units 20:50 06:06 07:18 WBC 11.3 H (4.8-10.8) X10*3/uL RBC 4.12 L (4.60-5.80) X10*6/uL Hgb 12.4 L (14.0-18.0) g/dl Hct 34.9 L (42.0-52.0) % Immature Gran % (Auto) 0.5 H (0.0-0.4) % Neut % (Auto) (45-73) % Lymph % (Auto) 18.7 L (20-40) % Abs Immat Gran (auto) 0.06 H (0.00-0.03) X10*3/uL Absolute Neuts (auto) (2.0-8.3) x10*3/uL ESR (0-15) MM/HR Sodium (135-145) mmol/L Anion Gap 11 L (12-20) BUN 8 L (9-16) mg/dL POC Glucose 268 H 154 H (60-115) mg/dL Random Glucose 127 H (60-115) mg/dL Lactic Acid (0.5-2.0) mmol/L C-Reactive Protein (< or = 0.50) mg/dL H & H 02/14/24 02/15/24 Range/Units 12:22 06:06 Hgb 14.1 12.4 L (14.0-18.0) g/dl Hct 39.9 L 34.9 L (42.0-52.0) % All other labs normal. Assessment and Plan (1) Cellulitis of left foot: Status: Resolved (2) Closed navicular fracture of left foot: Status: Acute Plan Discussed case with dr mariscal -this appears to be charcot foot given uncontrolled DM II -typically non surgical treamtent, would recommend a boot, NWB -continue IV abx for cellulitis-patient states he is improving. Procedures Date of Service Date of Service: 03/15/24
[2024-02-15] MEDS: vancomycin/NS 2,000 MG/500 ML PLAST..BAG 250 MG IV (09:08)
--- NOTE | 2024-02-15 09:26 | MHC.CM.PN ---
pt lives with parents is independent has no servies has a ride home
[2024-02-15 11:04] LABS: Glucose, Whole Blood 177 mg/dL (60-115)
--- NOTE | 2024-02-15 11:53 | HO.PM.IMPN ---
Subjective Subjective Date of Service: 02/15/24 Interval History: Patient notes improvement since admission. Able to ambulate with walker; new since admission Review of Systems Denies chest pain Denies shortness of breath Denies nausea vomiting diarrhea Denies fever chills Physical Exam Vital Signs: Vital Signs: Last Vital Signs Temp 98.9 F 02/15/24 07:23 Pulse 75 02/15/24 07:23 Resp 16 02/15/24 07:23 BP 128/73 02/15/24 07:23 Pulse Ox 98 02/15/24 07:23 O2 Del Method Room Air 02/15/24 07:23 BMI result Body Mass Index 30.0 Const: Other: Awake alert oriented x3 in no acute distress Resp: Other: Clear to auscultation bilaterally no rales rhonchi or wheezes Cardio: Other: No S4; positive S1-S2; no S3 murmurs rubs or gallops GI: Other: Soft nontender nondistended normoactive bowel sounds Extrem: Other: Left foot deformity noted (consistent with Charcot joint) erythema improved Objective Data Active Medications Acetaminophen (Acetaminophen 325 Mg Tablet) 650 mg PO Q6H PRN PRN Reason: Pain, Mild (Pain Scale 1-3) Atenolol (Atenolol 50 Mg Tablet) 50 mg PO DAILY [facility]; Protocol Last Admin: 02/15/24 08:11 Dose: 50 mg Documented By: ARTHUR Clotrimazole (Clotrimazole 1 % Cream 15 Gm Tube) 1 appl TOPICAL BID [facility] Last Admin: 02/15/24 08:15 Dose: 1 appl Documented By: ARTHUR Dextrose (Dextrose 50 % 25 Gm/50 Ml Syringe) 25 gm IVPUSH Q15M PRN; Protocol PRN Reason: per Hypoglycemia Standing Ord. Enoxaparin Sodium (Enoxaparin Sodium 40 Mg/0.4 Ml Syringe) 40 mg SUBCUT Q24H [facility] Last Admin: 02/14/24 18:26 Dose: Not Given Documented By: KAMINI Non-Admin Reason: Patient Refused Glucose (Glucose Gel 15 Gm Gel..Gram.) 15 gm PO Q15M PRN; Protocol PRN Reason: per Hypoglycemia Standing Ord. Piperacillin Sod/Tazobactam (Sod 4.5 gm/ Sodium Chloride) 100 mls @ 200 mls/hr IV Q6H [facility] Last Infusion: 02/15/24 09:07 Dose: Infused Documented By: ARTHUR Vancomycin HCl 750 mg/ Sodium (Chloride) 265 mls @ 265 mls/hr IV Q8H [facility] Insulin Glargine (Insulin Glargine,Hum.Rec.Anlog 100 Unit/Ml 10 Ml Vial) 24 unit SUBCUT BEDTIME [facility] Last Admin: 02/14/24 22:08 Dose: 24 unit Documented By: DIRK Insulin Human Lispro (Insulin Lispro 100 Unit/Ml 3 Ml Vial) 0 unit SUBCUT QIDACHS [facility]; Protocol Last Admin: 02/15/24 11:09 Dose: Not Given Documented By: ARTHUR Non-Admin Reason: Physician Held Med Comments: Hold Per DR. Stanford Ondansetron HCl (Ondansetron Hcl 4 Mg/2 Ml Vial) 4 mg IVPUSH Q8H PRN PRN Reason: Nausea and Vomiting Pharmacy Consult (Consult Rx Vancomycin Dosing) 1 each MISCELLANE DAILY PRN PRN Reason: Consult order Senna (Sennosides 8.6 Mg Tablet) 17.2 mg PO BEDTIME PRN PRN Reason: Constipation Sodium Chloride (0.9 % Sodium Chloride Flush 3 Ml Syringe) 3 ml IVFLUSH QSHIFT [facility] Last Admin: 02/15/24 08:11 Dose: 3 ml Documented By: ARTHUR Vitamin D (Cholecalciferol (Vitamin D3) 25 Mcg Tablet) 125 mcg PO DAILY [facility] Last Admin: 02/15/24 08:11 Dose: 125 mcg Documented By: ARTHUR Labs 02/15/24 06:06 02/15/24 06:06 Labs: Laboratory Results - last 24 hr 02/14/24 02/14/24 02/14/24 12:22 12:58 15:51 MCV 83.6 MCH 29.6 MCHC 35.3 RDW 12.5 Plt Count 324 MPV 9.8 Immature Gran % (Auto) 0.3 Neut % (Auto) 75.3 H Lymph % (Auto) 14.6 L [place] % (Auto) 7.1 Eos % (Auto) 2.3 Baso % (Auto) 0.4 Lymph # (Auto) 1.8 [place] # (Auto) 0.9 Eos # (Auto) 0.3 Baso # (Auto) 0.1 Abs Immat Gran (auto) 0.04 H Absolute Neuts (auto) 9.1 H Absolute Nucleated RBC 0.000 Nucleated RBC % (auto) 0.0 ESR 86 H Anion Gap 13 Estim Creat Clear Calc 84.7 Estimated GFR > 60 POC Glucose 258 H Random Glucose 419 H* Lactic Acid 2.1 H* Lactic Acid F/U @ 2Hr 1.0 Calcium 10.1 D C-Reactive Protein 13.30 H 02/14/24 02/15/24 02/15/24 20:50 06:06 07:18 MCV 84.7 MCH 30.1 MCHC 35.5 RDW 12.6 Plt Count 281 MPV 10.1 Immature Gran % (Auto) 0.5 H Neut % (Auto) 70.4 Lymph % (Auto) 18.7 L [place] % (Auto) 7.6 Eos % (Auto) 2.4 Baso % (Auto) 0.4 Lymph # (Auto) 2.1 [place] # (Auto) 0.9 Eos # (Auto) 0.3 Baso # (Auto) 0.1 Abs Immat Gran (auto) 0.06 H Absolute Neuts (auto) 7.9 Absolute Nucleated RBC 0.000 Nucleated RBC % (auto) 0.0 ESR Anion Gap 11 L Estim Creat Clear Calc 106.0 Estimated GFR > 60 POC Glucose 268 H 154 H Random Glucose 127 H Lactic Acid Lactic Acid F/U @ 2Hr Calcium 9.4 D C-Reactive Protein 02/15/24 11:00 MCV MCH MCHC RDW Plt Count MPV Immature Gran % (Auto) Neut % (Auto) Lymph % (Auto) [place] % (Auto) Eos % (Auto) Baso % (Auto) Lymph # (Auto) [place] # (Auto) Eos # (Auto) Baso # (Auto) Abs Immat Gran (auto) Absolute Neuts (auto) Absolute Nucleated RBC Nucleated RBC % (auto) ESR Anion Gap Estim Creat Clear Calc Estimated GFR POC Glucose 177 H Random Glucose Lactic Acid Lactic Acid F/U @ 2Hr Calcium C-Reactive Protein Microbiology Microbiology Results: Microbiology 02/14/24 13:28 Blood Culture - Final Blood - Venous Assessment and Plan (1) Osteomyelitis of left foot: Status: Acute (2) Uncontrolled type 2 diabetes mellitus with hyperglycemia: Status: Acute (3) Essential hypertension: Status: Acute Plan 58 year old male with history of uncontrolled non insulin dependent type 2 diabetes , hld, htn, who is obese with BMI>30 admitted for further management of cellulitis and suspected osteomyelitis L foot after questionable trauma. 1.Acute cellulitis and osteomyelitis L foot -MRI left foot with and without contrast ordered -zosyn (2).. Vancomycin (1) added to regimen pending id consult -ID consult -Follow cbc, cultures 2.Multiple fractures left foot -per ortho; appears to be Charcot joint -no surgical indication -pain management as indicated by clinical course 3.Uncontrolled non insulin dependent type 2 dm with hyperglycemia -patient states vision changes and dizziness with current insulin regimen -metformin 500 mg p.o. b.i.d.; DC Lantus HS. -lispro correctional scale -poc glucose, diabetic diet -adjust as indicated 4.HTN -acceptable control on current therapies -adjust as indicated Lovenox Full code Patient requires ongoing hospitalization for IV antibiotics to treat presumed osteomyelitis while MRI is pending Quality Stroke Does the patient have a stroke diagnosis?: No VTE Prior VTE?: No VTE Risk Level:: Medical - moderate - high VTE Device Contraindication: Treatment Not Indicated VTE Drug Contraindication: N/A - Med Ordered
[2024-02-15] MEDS: gadobutroL 10 ML VIAL IVPUSH (12:47)
[2024-02-15 15:20] VITALS: BP 149/73; PULSE 76; RESP 18; TEMP 37.3; O2SAT 99
[2024-02-15 16:14] LABS: Glucose, Whole Blood 251 mg/dL (60-115)
[2024-02-15] MEDS: vancomycin HCL 750 MG in 0.9 % Sodium Chloride 250 ML 265 MG IV (17:11)
[2024-02-15 19:22] VITALS: BP 138/83; PULSE 78; RESP 18; TEMP 36.7; O2SAT 98
[2024-02-15 19:59] LABS: Glucose, Whole Blood 135 mg/dL (60-115)
--- NOTE | 2024-02-15 22:58 | P.CNID_ITS ---
History of Present Illness Data of Consult Service Date: 02/15/24 Requesting physician: Adan Stanford Primary Care Provider: Ha Wiggins MD HPI Reason for consult: possible foot infection He presents with redness ,pain and swelling left foot after hitting foot on bed two weeks ago and over last two days developed redness. He has no fever or chills. ESR is 86 and CRP 13. Apparently he had redness of foot on arrival. He has been started on Vancomycin and piperacillin/tazobactam. He had MRI done which was nondefinitive. Review of Systems 2 Review of Systems: Yes all other systems are reviewed and are negative PMFSH Past Medical History Medical History (Updated 02/15/24 @ 23:04 by Monika Santiago MD) Charcot's joint of foot due to diabetes Swelling of left foot Osteomyelitis of left foot Obesity Type 2 diabetes mellitus with diabetic polyneuropathy Hyperlipidemia LDL goal <100 Essential hypertension Diabetes mellitus with hyperglycemia Family History Family History Father No problems noted. Mother No problems noted. Family history: reviewed and not pertinent Surgical History Surgical History Hx of colonoscopy No history of previous surgery Social History Social History Household Members: Family Household Members Other:: 1 Housing: House Patient Tobacco Use Status: Never used Tobacco Smoked in Last 30 Days: No e-Cigarette/Vaping Use: Never Used Patient Interested in Nicotine Replacement: No Patient Given Instructions on How to Stop Smoking: No Second Hand Smoke Exposure: No Use of substances other than those prescribed or required for medical reasons: No Currently Displaying Signs/Symptoms of Drug Intoxication Withdrawal: No Any prior treatment program specific to substance use: No Have you been hit, kicked, punched, or otherwise hurt by someone within the past year? If so, by whom?: No Do you feel safe in your current relationship?: No Current Relationship Is there a partner from a previous relationship who is making you feel unsafe now?: No Are you made to feel afraid or neglected: No Advance Directives: No Advance Directives Information Provided: No Do you have thoughts of harming others: None Do you have a plan to hurt others: No Plan Recently lost weight without trying: No Eating poorly because of decreased appetite: No Nutrition Risks: No Nutritional Risk Poor oral hygiene: No service: No Current occupational status: unemployed Cognitive needs: No Hearing needs: No Vision needs: No Meds Allergies Allergy/AdvReac Type Severity Reaction Status Date / Time liraglutide AdvReac Unknown diarrhea Verified 02/14/24 11:59 Active Medications: Current Medications Acetaminophen (Acetaminophen 325 Mg Tablet) 650 mg PO Q6H PRN PRN Reason: Pain, Mild (Pain Scale 1-3) Atenolol (Atenolol 50 Mg Tablet) 50 mg PO DAILY [facility]; Protocol Last Admin: 02/15/24 08:11 Dose: 50 mg Clotrimazole (Clotrimazole 1 % Cream 15 Gm Tube) 1 appl TOPICAL BID [facility] Last Admin: 02/15/24 20:27 Dose: 1 appl Dextrose (Dextrose 50 % 25 Gm/50 Ml Syringe) 25 gm IVPUSH Q15M PRN; Protocol PRN Reason: per Hypoglycemia Standing Ord. Enoxaparin Sodium (Enoxaparin Sodium 40 Mg/0.4 Ml Syringe) 40 mg SUBCUT Q24H [facility] Last Admin: 02/15/24 16:21 Dose: Not Given Glucose (Glucose Gel 15 Gm Gel..Gram.) 15 gm PO Q15M PRN; Protocol PRN Reason: per Hypoglycemia Standing Ord. Piperacillin Sod/Tazobactam (Sod 4.5 gm/ Sodium Chloride) 100 mls @ 200 mls/hr IV Q6H [facility] Last Infusion: 02/15/24 21:00 Dose: Infused Vancomycin HCl 750 mg/ Sodium (Chloride) 265 mls @ 265 mls/hr IV Q8H [facility] Last Infusion: 02/15/24 18:49 Dose: Infused Insulin Human Lispro (Insulin Lispro 100 Unit/Ml 3 Ml Vial) 0 unit SUBCUT QIDACHS [facility]; Protocol Last Admin: 02/15/24 20:48 Dose: Not Given Metformin HCl (Metformin Hcl 500 Mg Tablet) 500 mg PO BIDWM [facility] Last Admin: 02/15/24 16:55 Dose: Not Given Ondansetron HCl (Ondansetron Hcl 4 Mg/2 Ml Vial) 4 mg IVPUSH Q8H PRN PRN Reason: Nausea and Vomiting Pharmacy Consult (Consult Rx Vancomycin Dosing) 1 each MISCELLANE DAILY PRN PRN Reason: Consult order Senna (Sennosides 8.6 Mg Tablet) 17.2 mg PO BEDTIME PRN PRN Reason: Constipation Sodium Chloride (0.9 % Sodium Chloride Flush 3 Ml Syringe) 3 ml IVFLUSH QSHIFT [facility] Last Admin: 02/15/24 20:23 Dose: 3 ml Vitamin D (Cholecalciferol (Vitamin D3) 25 Mcg Tablet) 125 mcg PO DAILY [facility] Last Admin: 02/15/24 08:11 Dose: 125 mcg Home Medications Medication Instructions Recorded Confirmed Last Taken Type cholecalciferol (vitamin D3) 125 125 mcg PO DAILY 02/14/24 02/14/24 Unknown History mcg (5,000 unit) tablet (Vitamin D3) Physical Exam 2 Vital Signs: Vital Signs: Last Vital Signs Temp 98.1 F 02/15/24 19:22 Pulse 78 02/15/24 19:22 Resp 18 02/15/24 19:22 BP 138/83 02/15/24 19:22 Pulse Ox 98 02/15/24 19:22 O2 Del Method Room Air 02/15/24 19:22 BMI result Body Mass Index 30.0 Const: General: cooperative HEENT: Head: Yes normal to inspection Face and sinus: Yes normal facial exam Mouth: Normal oral and palatal mucosa present Teeth and gingiva: d entition normal Eyes: General: appearance normal, both eyes and all related structures P upils: Equal, round and reactive pupils present Resp: Effort & Inspection: normal respiratory effort Cardio: Rate: regular rate Rhythm: regular rhythm GI: Palpation (GI): Soft to palpation and nontender : General: Yes no CVA tenderness Back/Spine/Pelvis: Back: no CVA tenderness Skin: General skin exam: no rashes or lesions noted Neuro: General: moves all extremities Cranial nerves: Yes Equal, round and reactive pupils present Extrem: Other: left Charcot foot, swollen,pulses diminished slightly Psych: Appearance: grossly normal Results Labs 02/15/24 06:06 02/15/24 06:06 Labs: Short CBC 02/15/24 Range/Units 06:06 WBC 11.3 H (4.8-10.8) X10*3/uL Hgb 12.4 L (14.0-18.0) g/dl Hct 34.9 L (42.0-52.0) % Plt Count 281 (160-400) X10*3/uL BMP 02/15/24 06:06 Sodium 139 Potassium 4.0 Chloride 105 Carbon Dioxide 27 BUN 8 L Creatinine 0.90 Calcium 9.4 D Microbiology Microbiology Results: Microbiology 02/14/24 13:13 Blood - Venous Blood Culture - Preliminary No growth after 24 hours. 02/14/24 13:13 Blood - Venous Blood Culture - Preliminary No growth after 24 hours. 02/14/24 13:28 Blood - Venous Blood Culture - Final Assessment and Plan (1) Swelling of left foot: Status: Acute (2) Charcot's joint of foot due to diabetes: Status: Acute Plan I think that there is more fracture and possibly gout to patients clinical scenario than osteomyelitis because there is no wound and foot redness resolved quickly despite diabetes MRI is not helpful for diagnosis in this Charcot joint. Increased sedimentation rate and CRP however force treatment for presumed osteomyelitis Six weeks IV Daptomycin and Ertapenem cover most etiologies. Weekly CK and ESR and creatinine and CBC.
[2024-02-16] MEDS: Piperacillin Sodium/Tazobactam 4.5 GM in 0.9 % Sodium Chloride 100 ML IV ×4 (00:44→22:49)
[2024-02-16] MEDS: vancomycin HCL 750 MG in 0.9 % Sodium Chloride 250 ML 265 MG IV ×2 (01:21→11:40)
[2024-02-16 03:29] VITALS: BP 116/44; PULSE 69; RESP 18; TEMP 36.2; O2SAT 99
[2024-02-16 05:31] LABS: MANUAL DIFF FLAG NO
[2024-02-16 05:39] LABS: Basophils Percent Auto 0.3 % (0-2); Eosinophils Absolute Auto 0.3 X10*3/uL (0.0-0.4); Eosinophils Percent Auto 2.6 % (0-4); Hematocrit 32.9 % (42.0-52.0); Hemoglobin 11.4 g/dl (14.0-18.0); Imm Gran Abs Auto 0.03 X10*3/uL (0.00-0.03); Imm Gran Pct Auto 0.3 % (0.0-0.4); Lymphocytes Absolute Auto 2.1 X10*3/uL (1.2-4.9); Lymphocytes Percent Auto 20.4 % (20-40); Mean Corpuscular HGB Conc 34.7 g/dl (31.0-36.0); Mean Corpuscular Hemoglobin 29.6 pg (27.0-33.0); Mean Corpuscular Volume 85.5 fL (80.0-98.0); Mean Platelet Volume 10.2 fL (9.4-12.4); Monocytes Absolute Auto 0.8 X10*3/uL (0.1-1.2); Monocytes Percent Auto 7.4 % (2-11); Platelet Count 235 X10*3/uL (160-400); Red Blood Count 3.85 X10*6/uL (4.60-5.80); Red Cell Distribution Width 12.8 % (11.0-16.0); White Blood Count 10.2 X10*3/uL (4.8-10.8)
[2024-02-16 05:55] LABS: Alanine Aminotransferase 8 U/L (0-40); Albumin Level 2.9 g/dL (3.5-5.0); Alkaline Phosphatase 65 U/L (39-117); Anion Gap 11 (12-20); Aspartate Amino Transferase 9 U/L (5-37); Bilirubin Total 0.5 mg/dL (0.0-1.0); Blood Urea Nitrogen 13 mg/dL (9-16); Calcium 8.7 mg/dL (8.4-10.2); Carbon Dioxide 24 mmol/L (22-29); Chloride 104 mmol/L (96-108); Creatinine Clr Calc Pharmacy 97.3; Estimated Glomerular Filt Rate > 60; Glucose Fasting 341 mg/dL (60-99); Sodium 135 mmol/L (135-145); Total Protein 6.3 g/dL (6.5-8.0)
--- NOTE | 2024-02-16 06:38 | PHA.PROG ---
Admission Date/Time: February 14, 2024 16:24 Indication: bone + joint Weight in k kg Adjusted body weight in Kg: [place] body weight in Kg: Obesity Dosing Indication % IBW: BMI 30.1 Serum Creatinine - Last 168 Hours 02/14/24 02/15/24 02/16/24 12:22 06:06 05:03 Creatinine 1.13 0.90 0.98 Estimated CrCl and GFR - Last 168 Hours 02/14/24 02/15/24 02/16/24 12:22 06:06 05:03 Estim Creat Clear Calc 84.7 106.0 97.3 Estimated GFR > 60 > 60 > 60 Vancomycin Loading Dose: 2000 mg x1 Current Vancomycin Dosing Regimen: 750 mg Q8H Vancomycin Monitoring using AUC goal of 400 - 600 range with trough as surrogate marker: 537 Date and Time for next Vancomycin Level to be drawn: 02/16/2024 @1500 Pharmacist Comments on Vancomycin Plan: will adjust per renal function and trough Vancomycin dosing will take advantage of [employer] as a clinical decision support tool that uses Bayesian modeling to calculate individual patient's pharmacokinetic parameters and forecast the patient's drug concentration time course with the target goal AUC 24 range of 400 - 600 mg/L/hr.
[2024-02-16 07:45] VITALS: BP 129/66; PULSE 69; RESP 12; TEMP 36.7; O2SAT 96
[2024-02-16 07:46] LABS: Glucose, Whole Blood 279 mg/dL (60-115)
[2024-02-16] MEDS: Cholecalciferol (Vitamin D3) 25 MCG TABLET 125 MCG PO (08:03)
[2024-02-16] MEDS: 0.9 % Sodium Chloride Flush 3 ML SYRINGE IVFLUSH ×2 (08:05→17:00)
[2024-02-16] MEDS: Clotrimazole 1 % Cream 15 GM TUBE 1 APPL TOPICAL ×2 (08:06→20:02)
--- NOTE | 2024-02-16 10:30 | P.PICC_ITS ---
PICC Line Insertion NPICC Diagnosis: Osteomyelitis Indication: 6wks ABT Pertinent Labs: Reviewed Technique: Following informed consent including risks, benefits and alternatives and using sterile technique including cap and mask, sterile gown, glove and drape, the arm was prepped and draped in the usual sterile fashion of full barrier technique with CHG. Following completion of [place] Protocol the skin and soft tissues were anesthetized with 1% Lidocaine plain. Using ultrasound guidance, right basilic vein access was obtained. Over an 0.018 wire through peel-away sheath, a 4FR single lumen PASV PICC line was positioned. Catheter length is 41cm internal length, 0cm external length, for a total trimmed length of 41cm. The procedure was performed in rm 272. Tip verification was performed by Mayi Pham with Sherlock 3CG. Tip located in SVC. Ultrasound was used to document vein patency and for needle entry. A formal ultrasound picture and cardiac rhythm strip was recorded. [employer] Developing Machine Operator has released the line for use and it is currently dressed with a StatLock, Tegaderm, and CHG disc. Verification has been performed for blood return and line patency. Arm Circumference: 31.5cm Equipment: [employer] PowerPICC SOLO Catheter with Sherlock 3CG Tip Catheter Type: 4FR single lumen PASV PICC Catheter Lot #: [id number]
[2024-02-16 11:01] LABS: Glucose, Whole Blood 211 mg/dL (60-115)
[2024-02-16] MEDS: Insulin Lispro 100 UNIT/ML 3 ML VIAL SUBCUT ×3 (11:02→20:00)
[2024-02-16] MEDS: Empagliflozin 10 MG TABLET PO (11:02)
[2024-02-16 11:52] VITALS: BP 133/76
--- NOTE | 2024-02-16 14:17 | P.PNIM_ITS ---
Subjective Subjective Date of Service: 02/16/24 Interval History: Doing well overall. States vancomycin infusion precipitates nausea. Also states can not tolerate metformin secondary to profuse GI consequences Review of Systems Denies chest pain Denies shortness of breath Denies nausea vomiting diarrhea Denies fever chills Physical Exam 2 Vital Signs: Vital Signs: Last Vital Signs Temp 98.1 F 02/16/24 07:45 Pulse 69 02/16/24 07:45 Resp 12 02/16/24 07:45 BP 133/76 02/16/24 11:52 Pulse Ox 96 02/16/24 07:45 O2 Del Method Room Air 02/16/24 07:45 BMI result Body Mass Index 30.0 Const: Other: Awake alert oriented x3 in no acute distress Resp: Other: Clear to auscultation bilaterally no rales rhonchi or wheezes Cardio: Other: No S4; positive S1-S2; no S3 murmurs rubs or gallops GI: Other: Soft nontender nondistended normoactive bowel sounds Extrem: Other: Left foot deformity noted (consistent with Charcot joint) erythema improved Objective Data Active Medications Acetaminophen (Acetaminophen 325 Mg Tablet) 650 mg PO Q6H PRN PRN Reason: Pain, Mild (Pain Scale 1-3) Atenolol (Atenolol 50 Mg Tablet) 50 mg PO DAILY [facility]; Protocol Last Admin: 02/16/24 08:05 Dose: Not Given Documented By: COTEMA Non-Admin Reason: Patient Refused Clotrimazole (Clotrimazole 1 % Cream 15 Gm Tube) 1 appl TOPICAL BID [facility] Last Admin: 02/16/24 08:06 Dose: 1 appl Documented By: ARTHUR Dextrose (Dextrose 50 % 25 Gm/50 Ml Syringe) 25 gm IVPUSH Q15M PRN; Protocol PRN Reason: per Hypoglycemia Standing Ord. Enoxaparin Sodium (Enoxaparin Sodium 40 Mg/0.4 Ml Syringe) 40 mg SUBCUT Q24H [facility] Last Admin: 02/15/24 16:21 Dose: Not Given Documented By: HALIEMA Non-Admin Reason: Patient Refused Glucose (Glucose Gel 15 Gm Gel..Gram.) 15 gm PO Q15M PRN; Protocol PRN Reason: per Hypoglycemia Standing Ord. Piperacillin Sod/Tazobactam (Sod 4.5 gm/ Sodium Chloride) 100 mls @ 200 mls/hr IV Q6H [facility] Daptomycin 950 mg/ Sodium (Chloride) 69 mls @ 100 mls/hr IV Q24H [facility] Insulin Human Lispro (Insulin Lispro 100 Unit/Ml 3 Ml Vial) 0 unit SUBCUT QIDACHS [facility]; Protocol Last Admin: 02/16/24 11:02 Dose: 4 unit Documented By: ARTHUR Ondansetron HCl (Ondansetron Hcl 4 Mg/2 Ml Vial) 4 mg IVPUSH Q8H PRN PRN Reason: Nausea and Vomiting Pharmacy Consult (Consult Rx Vancomycin Dosing) 1 each MISCELLANE DAILY PRN PRN Reason: Consult order Senna (Sennosides 8.6 Mg Tablet) 17.2 mg PO BEDTIME PRN PRN Reason: Constipation Sodium Chloride (0.9 % Sodium Chloride Flush 3 Ml Syringe) 3 ml IVFLUSH QSHIFT [facility] Last Admin: 02/16/24 08:05 Dose: 3 ml Documented By: ARTHUR Sodium Chloride (0.9 % Sodium Chloride Flush 10 Ml Syringe) 5 ml IVFLUSH TID [facility] Vitamin D (Cholecalciferol (Vitamin D3) 25 Mcg Tablet) 125 mcg PO DAILY [facility] Last Admin: 02/16/24 08:03 Dose: 125 mcg Documented By: ARTHUR Labs 02/16/24 05:03 02/16/24 05:03 Labs: Laboratory Results - last 24 hr 02/15/24 02/15/24 02/16/24 16:08 19:55 05:03 MCV 85.5 MCH 29.6 MCHC 34.7 RDW 12.8 Plt Count 235 MPV 10.2 Immature Gran % (Auto) 0.3 Neut % (Auto) 69.0 Lymph % (Auto) 20.4 [place] % (Auto) 7.4 Eos % (Auto) 2.6 Baso % (Auto) 0.3 Lymph # (Auto) 2.1 [place] # (Auto) 0.8 Eos # (Auto) 0.3 Baso # (Auto) 0.0 Abs Immat Gran (auto) 0.03 Absolute Neuts (auto) 7.0 Absolute Nucleated RBC 0.000 Nucleated RBC % (auto) 0.0 Anion Gap 11 L Estim Creat Clear Calc 97.3 Estimated GFR > 60 POC Glucose 251 H 135 H Fasting Glucose 341 H Calcium 8.7 D Total Bilirubin 0.5 AST 9 ALT 8 Alkaline Phosphatase 65 Total Protein 6.3 L Albumin 2.9 L 02/16/24 02/16/24 07:39 10:49 MCV MCH MCHC RDW Plt Count MPV Immature Gran % (Auto) Neut % (Auto) Lymph % (Auto) [place] % (Auto) Eos % (Auto) Baso % (Auto) Lymph # (Auto) [place] # (Auto) Eos # (Auto) Baso # (Auto) Abs Immat Gran (auto) Absolute Neuts (auto) Absolute Nucleated RBC Nucleated RBC % (auto) Anion Gap Estim Creat Clear Calc Estimated GFR POC Glucose 279 H 211 H Fasting Glucose Calcium Total Bilirubin AST ALT Alkaline Phosphatase Total Protein Albumin Microbiology Microbiology Results: Microbiology 02/14/24 13:13 Blood Culture - Preliminary Blood - Venous No growth after 24 hours. 02/14/24 13:13 Blood Culture - Preliminary Blood - Venous No growth after 24 hours. Assessment and Plan (1) Osteomyelitis: Status: Acute (2) Charcot's joint of foot due to diabetes: Status: Acute (3) Uncontrolled type 2 diabetes mellitus with hyperglycemia: Status: Acute Plan 58 year old male with history of uncontrolled non insulin dependent type 2 diabetes , hld, htn, who is obese with BMI>30 admitted for further management of cellulitis and suspected osteomyelitis L foot after questionable trauma. 1.Acute cellulitis and osteomyelitis L foot -MRI left foot with and without contrast ... Can not rule out osteo -zosyn (3).. Vancomycin DC'd in favor of daptomycin (1) -PICC line inserted today -blood cultures negative thus far 2.Multiple fractures left foot -per ortho; appears to be Charcot joint -no surgical indication -pain management as indicated by clinical course 3.Uncontrolled non insulin dependent type 2 dm with hyperglycemia -can not tolerate metformin; Jardiance 10 mg added -lispro correctional scale -poc glucose, diabetic diet -adjust as indicated 4.HTN -acceptable control on current therapies -adjust as indicated Lovenox Full code Patient requires ongoing hospitalization for IV antibiotics to treat presumed osteomyelitis Quality Stroke Does the patient have a stroke diagnosis?: No VTE Prior VTE?: No VTE Risk Level:: Medical - moderate - high VTE Device Contraindication: Treatment Not Indicated VTE Drug Contraindication: N/A - Med Ordered
[2024-02-16 16:00] VITALS: BP 156/85; PULSE 77; RESP 18; TEMP 36.4; O2SAT 97
[2024-02-16 16:38] LABS: Glucose, Whole Blood 267 mg/dL (60-115)
[2024-02-16] MEDS: 0.9 % Sodium Chloride Flush 10 ML SYRINGE 5 ML IVFLUSH ×2 (16:59→20:00)
[2024-02-16] MEDS: DAPTOmycin 950 MG in 0.9 % Sodium Chloride 50 ML 100 MG IV (17:00)
[2024-02-16 19:01] VITALS: BP 153/81; PULSE 81; RESP 18; TEMP 36.8; O2SAT 98
[2024-02-16 19:52] LABS: Glucose, Whole Blood 214 mg/dL (60-115)
[2024-02-17 03:25] VITALS: BP 144/71; PULSE 73; RESP 16; TEMP 37.2; O2SAT 97
[2024-02-17] MEDS: Piperacillin Sodium/Tazobactam 4.5 GM in 0.9 % Sodium Chloride 100 ML IV (04:55)
[2024-02-17 06:58] VITALS: BP 135/65; PULSE 88; RESP 16; TEMP 36.1; O2SAT 98
[2024-02-17 07:12] LABS: Glucose, Whole Blood 141 mg/dL (60-115)
[2024-02-17] MEDS: Ertapenem Sodium 1 GM in 0.9 % Sodium Chloride 50 ML IV (08:17)
[2024-02-17] MEDS: Cholecalciferol (Vitamin D3) 25 MCG TABLET 125 MCG PO (08:18)
[2024-02-17] MEDS: 0.9 % Sodium Chloride Flush 10 ML SYRINGE 5 ML IVFLUSH ×2 (08:18→14:33)
[2024-02-17] MEDS: Clotrimazole 1 % Cream 15 GM TUBE 1 APPL TOPICAL (08:18)
[2024-02-17] MEDS: atenoloL 50 MG TABLET PO (08:18)
[2024-02-17] MEDS: Empagliflozin 10 MG TABLET PO (08:18)
[2024-02-17 11:10] LABS: Glucose, Whole Blood 151 mg/dL (60-115)
--- NOTE | 2024-02-17 11:11 | P.DS_ITS ---
DS: Providers Provider Date of Service: 02/17/24 Date of admission: 02/14/24 16:24 Date of discharge: 02/17/24 Primary care physician: Ha Wiggins MD Consults: 02/14/24 16:24 Consult to Infectious Diseases Routine Consulting [place] [facility] [place] Reason for consultation: osteomyelitis L foot Consult to Orthopedics Routine Consulting Provider: [facility] Reason for consultation: comminuted fracture 2nd metatarsal 02/14/24 23:04 Consult to Wound Care Routine Reason for consultation: left foot cellulitis 02/16/24 14:16 Consult to Infectious Diseases Routine Consulting Provider: JAYDEN BARAJAS Reason for consultation: osteomyelitis Has provider been notified: Yes 02/17/24 07:19 Consult to Infectious Diseases Routine Consulting Provider: Jayden Barajas Reason for consultation: osteo Has provider been notified: Yes DS: Diagnosis Discharge Diagnosis (1) Osteomyelitis: Status: Acute (2) Charcot's joint of foot due to diabetes: Status: Acute (3) Uncontrolled type 2 diabetes mellitus with hyperglycemia: Status: Acute DS: Summary Hospital Course Hospital Course: 58 year old male with history of uncontrolled non insulin dependent type 2 diabetes , hld, htn, who is obese with BMI>30 presented to the ED earlier today for evaluation of left foot infection. He does not recall any specific injury but does feel he may have injured his left foot about 2 weeks ago possibly against his father's hospital bed. Since then has had gradually worsening swelling. He was seen by his duck farmer with negative xrays at the time and advised to use compression stockings. Over the last few days has had worsening swelling, redness, pruritus. Was seen in urgent care yesterday and was started on keflex which he has been taking as prescribed. Today noticed erythema spreading far beyond the skin marker from the urgent care and came for reevaluation. Denies any fevers, chills, skin breaks, purulent drainage. Has been able to bear weight and reports 2/10 pain. On arrival, VSS though slightly hypertensive at 154/87 on admission. There is a leukocytosis 12.1. Renal function and lytes normal except for Na 132. Initial glucose 419 improved to 258 with IVF. Initial lactic acid 2.1, repeat 1.0. CRP 13.3, ESR 86. Venous duplex LLE negative for DVT. CT left foot shows a comminuted fracture/dislocation at the base of the 2nd metatarsal, multiple bony fragments, raising concern for underlying vs superimposed process possible infection osteomyelitis in the right clinical setting. there is also a small fracture/dislocation base of 3rd metatarsal and impaction fracture intertarsal medial cuneiform of the navicular bone as well as lateral subluxation of the 2nd, 3rd, and 4th tarsometatarsal joints and extensive soft tissue swelling. In the Ed, given 1 L IV NS and iv zosyn. Hospital Course Patient admitted to general medical floor and started initially on Zosyn for presumed cellulitis. Inflammatory markers came back elevated and vancomycin was added for presumed osteomyelitis. He was seen in consultation by ortho after x- ray demonstrated multiple fractures of the left foot. This was felt to be related to Charcot joint and no intervention was indicated. Given of the elevation of his inflammatory markers an MRI of his foot was undertaken at the request of ID. Their recommendation was that the MRI was not directly indicative of osteomyelitis but his inflammatory markers could not be ignored. He was then switched to daptomycin and ertapenem for broad coverage; his cellulitic changes resolved over the 1st 48 hours. Cultures remain negative and he had PICC line placed without incident. At this point he is medically accepta ble for discharge on 6 weeks of ertapenem and daptomycin. Sugars were poorly controlled on admission and insulin was attempted however patient did not tolerate well. Jardiance 10 mg was added with good effect. Sugars were in the 150-180 range. Upon return to home patient will resume his glyburide in addition to Jardiance and will follow up with his PCP. Lisinopril 2.5 mg daily was added for renal protection. He tolerated doses of both ertapenem and daptomycin prior to discharge. He will be discharged home with VNA and infusion support. He will follow up with his PCP next available and Dr. Barajas's office will arrange follow-up with her. Weekly labs will be checked and managed by Dr. Hammond Time Attestation Discharge Coordination Time (in mins): 40 Quality: Safe Use of Opioids Does Pt have an Active Cancer Diagnosis on the Problem List?: No Quality: Stroke Does the patient have a stroke diagnosis?: No Physical Exam Vital Signs: Vital Signs: Last Vital Signs Temp 97 F 02/17/24 06:58 Pulse 88 02/17/24 06:58 Resp 16 02/17/24 06:58 BP 135/65 02/17/24 06:58 Pulse Ox 98 02/17/24 06:58 O2 Del Method Room Air 02/17/24 06:58 BMI result Body Mass Index 30.0 Const: Other: Awake alert oriented x3 in no acute distress Resp: Other: Clear to auscultation bilaterally no rales rhonchi or wheezes Cardio: Other: No S4; positive S1-S2; no S3 murmurs rubs or gallops GI: Other: Soft nontender nondistended normoactive bowel sounds Extrem: Other: Left foot deformity noted (consistent with Charcot joint) erythema improved DS: Data Data Completed and Pending Labs on day of discharge: Laboratory Results - last 24 hr 02/16/24 02/16/24 02/17/24 16:23 19:03 06:57 POC Glucose 267 H 214 H 141 H 02/17/24 11:04 POC Glucose 151 H Preliminary micro results at discharge 02/14/24 13:13 Blood Culture - Preliminary Blood - Venous No growth after 48 hours. 02/14/24 13:13 Blood Culture - Preliminary Blood - Venous No growth after 48 hours. Discharge Plan Discharge Anticipated Discharge Date/Time: 02/17/24 10:54 Patient Disposition: Home Health Service Discharge Diagnosis: Osteomyelitis left foot Referrals: Ha Wiggins MD [Primary Care Provider] - 1 Week Discharge Medications: New lisinopril 2.5 mg Tablet 2.5 mg PO DAILY Qty: 30 1RF Protocol: Hold for SBP< HOLD for SBP < : 90 daptomycin 500 mg Recon Soln 950 mg IV Q24H Qty: 42 0RF Jardiance 10 mg Tablet 10 mg PO DAILY Qty: 30 1RF ertapenem 1 gram recon soln 1 g IV DAILY 42 Days Continued atenolol 50 mg tablet 50 mg PO DAILY Qty: 90 8RF (DME) FreeStyle Test Strip See Rx Instructions .ROUTE .MEDSUPPLY Qty: 10 8RF Rx Instructions: three times a day (DME) lancets [FreeStyle Lancets] 28 gauge misc See Rx Instructions .ROUTE .MEDSUPPLY Qty: 100 8RF Rx Instructions: three times a day glyburide 5 mg tablet See Rx Instructions PO .COMPLEX 30 Days Qty: 270 2RF Rx Instructions: Take 1 tab every morning and 2 tabs every evening PO; cholecalciferol (vitamin D3) [Vitamin D3] 125 mcg (5,000 unit) Tablet 125 mcg PO DAILY ketoconazole 2 % cream 1 appl topical BID 14 Days Qty: 60 0RF Rx Instructions: Continue to apply until symptoms resolve, up to 2 weeks Discontinued cephalexin 500 mg capsule 500 mg PO QID 10 Days Qty: 40 0RF Discharge Orders: Discharge Order (Routine); Ordered 02/17/24 Ordered By: Adan Stanford Diet: Advance to usual diet Activity on Discharge: As tolerated Stand Alone Forms: Patient Portal Discharge page Care Plan Goals: Continue all meds as before hospital. Jardiance 10 mg daily has been added to your regimen along with lisinopril 2.5 mg daily Health Concerns: He will be on daptomycin and ertapenem daily for 6 weeks. VNA/infusion therapy will assist you with this. Dr. Barajas's office will call you for follow-up Plan of Treatment: Follow-up with PCP next available Assessment: See discharge summary
--- NOTE | 2024-02-17 11:17 | W.MHC.F2F ---
Service Date Service Date: 02/17/24 Encounter Date of encounter: 02/17/24 Encounter: Acute hospitalization Reasons for Services Signs and symptoms assessed: To assess compliance and efficacy of IV antibiotics to treat osteomyelitis of left foot. Monitor response to therapies Reason for longterm: diabetic teaching, medication management, medication treatment and teach disease management Homebound: Leaving the home is medically contraindicated at this time without the asist of a device and/or another person due th the listed conditions above and below. Reason homebound: weakness related to hospital stay and unable to drive Certification: Based on the above findings, I certify that this patient is confined to the home and needs intermittent longterm care, physical therapy and/or speech therapy, or continues to need occupational therapy. The patient is under my care, and I have initiated the establishment of the plan of care. The patient will be followed by a physician who will periodically review the plan of care. Time Spent With Patient Time: Total time managing care of this patient today ____ minutes.
[2024-02-17] MEDS: lisinopriL 2.5 MG TABLET PO (12:09)
[2024-02-17] MEDS: Insulin Lispro 100 UNIT/ML 3 ML VIAL SUBCUT (12:10)
[2024-02-17 12:11] VITALS: BP 134/74; PULSE 75
--- NOTE | 2024-02-17 12:17 | MHC.CM.PN ---
pt dcd home with [facility] and [facility] for iv antibiotics at home pt arranging own transport home
[2024-02-17] MEDS: 0.9 % Sodium Chloride Flush 3 ML SYRINGE IVFLUSH (15:30)
[2024-02-17] MEDS: DAPTOmycin 950 MG in 0.9 % Sodium Chloride 50 ML 100 MG IV (15:30)
[2024-02-17 16:00] VITALS: TEMP 36.7
== END 2024-02-17 16:30 | disposition home health service (06) | DRG 48 ==
LOC: HO.ED 12:38 → HO.EDOVER 16:43 → HO.S3 19:38
PROVIDERS: Nurse Practitioner Family; Physician Assistant; Admitting Provider Physician Assistant; Emergency Provider Student in an Organized Health Care Education/Training Program; PCP Internal Medicine; Visit Provider Hospitalist
DX: E11.610 Type 2 diabetes mellitus with diabetic neuropathic arthropathy (principal); E11.69 Type 2 diabetes mellitus with other specified complication; M86.172 Other acute osteomyelitis, left ankle and foot; L03.116 Cellulitis of left lower limb; M84.675A Pathological fracture in other disease, left foot, initial encounter for fracture; E11.42 Type 2 diabetes mellitus with diabetic polyneuropathy; B35.3 Tinea pedis; E11.65 Type 2 diabetes mellitus with hyperglycemia; E66.9 Obesity, unspecified; Z68.30 Body mass index [BMI] 30.0-30.9, adult; I10 Essential (primary) hypertension; Z79.84 Long term (current) use of oral hypoglycemic drugs; Z79.899 Other long term (current) drug therapy
CPT/HCPCS: 36415; 36573; 73630; 73700; 73720; 80048; 80053; 82947; 83605; 85025; 85652; 86140; 87040; 93971; 99285; A9585; C1751; C1894; J0878; J1335; J2543; J3370

== ENCOUNTER → 2024-02-14 16:24 | Outpatient (BNV) | payer OTHER, SELFPAY | PROVIDERS: Admitting Provider Physician Assistant; Emergency Provider Student in an Organized Health Care Education/Training Program; PCP Internal Medicine; Visit Provider Hospitalist | DX: L03.116 Cellulitis of left lower limb (principal); M86.9 Osteomyelitis, unspecified; T14.8XXA Other injury of unspecified body region, initial encounter; E11.65 Type 2 diabetes mellitus with hyperglycemia; S92.252A Displaced fracture of navicular [scaphoid] of left foot, initial encounter for closed fracture | CPT/HCPCS: 99223; 99232; 99239; G0180 ==

== ENCOUNTER → 2024-02-14 16:24 | Outpatient (BNV) | payer OTHER, SELFPAY | PROVIDERS: Admitting Provider Physician Assistant; Emergency Provider Student in an Organized Health Care Education/Training Program; PCP Internal Medicine; Visit Provider Internal Medicine | DX: M79.89 Other specified soft tissue disorders (principal); E11.610 Type 2 diabetes mellitus with diabetic neuropathic arthropathy | CPT/HCPCS: 99222 ==

== ENCOUNTER → 2024-02-14 16:24 | Outpatient (BNV) | payer OTHER, SELFPAY | PROVIDERS: Admitting Provider Physician Assistant; Emergency Provider Student in an Organized Health Care Education/Training Program; PCP Internal Medicine; Visit Provider Physician Assistant | DX: L03.116 Cellulitis of left lower limb (principal); S92.252A Displaced fracture of navicular [scaphoid] of left foot, initial encounter for closed fracture | CPT/HCPCS: 99222 ==

== ENCOUNTER 2024-02-23 13:15 | Outpatient (REF) | payer OTHER, SELFPAY ==
[2024-02-23 16:03] LABS: MANUAL DIFF FLAG NO
[2024-02-23 16:10] LABS: Basophils Absolute Auto 0.1 X10*3/uL (0.0-0.2); Basophils Percent Auto 0.6 % (0-2); Eosinophils Absolute Auto 0.3 X10*3/uL (0.0-0.4); Eosinophils Percent Auto 2.7 % (0-4); Hematocrit 35.9 % (42.0-52.0); Hemoglobin 12.3 g/dl (14.0-18.0); Imm Gran Abs Auto 0.05 X10*3/uL (0.00-0.03); Imm Gran Pct Auto 0.5 % (0.0-0.4); Lymphocytes Absolute Auto 1.7 X10*3/uL (1.2-4.9); Lymphocytes Percent Auto 17.9 % (20-40); Mean Corpuscular HGB Conc 34.3 g/dl (31.0-36.0); Mean Corpuscular Hemoglobin 29.4 pg (27.0-33.0); Mean Corpuscular Volume 85.9 fL (80.0-98.0); Mean Platelet Volume 10.4 fL (9.4-12.4); Monocytes Absolute Auto 0.6 X10*3/uL (0.1-1.2); Monocytes Percent Auto 6.2 % (2-11); Neutrophils Percent Auto 72.1 % (45-73); Platelet Count 314 X10*3/uL (160-400); Red Blood Count 4.18 X10*6/uL (4.60-5.80); Red Cell Distribution Width 12.9 % (11.0-16.0); White Blood Count 9.7 X10*3/uL (4.8-10.8)
[2024-02-23 16:52] LABS: Erythrocyte Sedimentation Rate 85 MM/HR (0-15)
== END 2024-02-23 13:16 | disposition home or self-care (01) ==
LOC: HO.HVNA 13:15
PROVIDERS: PCP Internal Medicine; Visit Provider Internal Medicine
DX: M86.172 Other acute osteomyelitis, left ankle and foot (principal); Z79.2 Long term (current) use of antibiotics
CPT/HCPCS: 36415; 82550; 85025; 85652

== ENCOUNTER 2024-03-01 12:50 | Outpatient (REF) | payer OTHER, SELFPAY ==
[2024-03-01 15:59] LABS: MANUAL DIFF FLAG NO
[2024-03-01 16:19] LABS: Basophils Absolute Auto 0.1 X10*3/uL (0.0-0.2); Basophils Percent Auto 0.4 % (0-2); Eosinophils Absolute Auto 0.4 X10*3/uL (0.0-0.4); Eosinophils Percent Auto 3.6 % (0-4); Hematocrit 33.8 % (42.0-52.0); Hemoglobin 11.3 g/dl (14.0-18.0); Imm Gran Abs Auto 0.05 X10*3/uL (0.00-0.03); Imm Gran Pct Auto 0.4 % (0.0-0.4); Lymphocytes Absolute Auto 1.2 X10*3/uL (1.2-4.9); Mean Corpuscular HGB Conc 33.4 g/dl (31.0-36.0); Mean Corpuscular Hemoglobin 28.3 pg (27.0-33.0); Mean Corpuscular Volume 84.5 fL (80.0-98.0); Mean Platelet Volume 10.3 fL (9.4-12.4); Monocytes Absolute Auto 0.8 X10*3/uL (0.1-1.2); Monocytes Percent Auto 7.5 % (2-11); Neutrophils Absolute Auto 8.7 x10*3/uL (2.0-8.3); Neutrophils Percent Auto 77.1 % (45-73); Platelet Count 314 X10*3/uL (160-400); Red Cell Distribution Width 12.6 % (11.0-16.0); White Blood Count 11.2 X10*3/uL (4.8-10.8)
[2024-03-01 16:54] LABS: Erythrocyte Sedimentation Rate 96 MM/HR (0-15)
== END 2024-03-01 12:51 | disposition home or self-care (01) ==
LOC: HO.HVNA 12:50
PROVIDERS: PCP Internal Medicine; Visit Provider Internal Medicine
DX: M86.172 Other acute osteomyelitis, left ankle and foot (principal)
CPT/HCPCS: 36415; 82550; 85025; 85652

== ENCOUNTER 2024-03-08 13:06 | Outpatient (REF) | payer OTHER, SELFPAY ==
[2024-03-08 16:29] LABS: MANUAL DIFF FLAG NO
[2024-03-08 16:38] LABS: Basophils Percent Auto 0.2 % (0-2); Eosinophils Absolute Auto 0.6 X10*3/uL (0.0-0.4); Eosinophils Percent Auto 3.4 % (0-4); Hemoglobin 11.2 g/dl (14.0-18.0); Imm Gran Abs Auto 0.06 X10*3/uL (0.00-0.03); Imm Gran Pct Auto 0.4 % (0.0-0.4); Lymphocytes Absolute Auto 1.6 X10*3/uL (1.2-4.9); Lymphocytes Percent Auto 9.5 % (20-40); Mean Corpuscular HGB Conc 33.9 g/dl (31.0-36.0); Mean Corpuscular Hemoglobin 28.1 pg (27.0-33.0); Mean Corpuscular Volume 82.9 fL (80.0-98.0); Mean Platelet Volume 10.4 fL (9.4-12.4); Monocytes Absolute Auto 1.1 X10*3/uL (0.1-1.2); Monocytes Percent Auto 6.9 % (2-11); Neutrophils Percent Auto 79.6 % (45-73); Platelet Count 324 X10*3/uL (160-400); Red Blood Count 3.98 X10*6/uL (4.60-5.80); Red Cell Distribution Width 12.7 % (11.0-16.0); White Blood Count 16.3 X10*3/uL (4.8-10.8)
[2024-03-08 17:29] LABS: Erythrocyte Sedimentation Rate 105 MM/HR (0-15)
== END 2024-03-08 13:07 | disposition home or self-care (01) ==
LOC: HO.HMGCLNP 13:06
PROVIDERS: Visit Provider Internal Medicine
DX: M86.172 Other acute osteomyelitis, left ankle and foot (principal)
CPT/HCPCS: 82550; 85025; 85652

== ENCOUNTER 2024-03-15 12:40 | Outpatient (REF) | payer OTHER, SELFPAY ==
[2024-03-15 15:59] LABS: MANUAL DIFF FLAG NO
[2024-03-15 16:10] LABS: Basophils Absolute Auto 0.1 X10*3/uL (0.0-0.2); Basophils Percent Auto 0.5 % (0-2); Eosinophils Absolute Auto 0.4 X10*3/uL (0.0-0.4); Eosinophils Percent Auto 3.3 % (0-4); Hematocrit 34.8 % (42.0-52.0); Hemoglobin 11.5 g/dl (14.0-18.0); Imm Gran Abs Auto 0.08 X10*3/uL (0.00-0.03); Imm Gran Pct Auto 0.7 % (0.0-0.4); Lymphocytes Absolute Auto 1.9 X10*3/uL (1.2-4.9); Lymphocytes Percent Auto 16.1 % (20-40); Mean Corpuscular Hemoglobin 27.5 pg (27.0-33.0); Mean Corpuscular Volume 83.3 fL (80.0-98.0); Monocytes Absolute Auto 0.8 X10*3/uL (0.1-1.2); Monocytes Percent Auto 7.2 % (2-11); Neutrophils Absolute Auto 8.4 x10*3/uL (2.0-8.3); Neutrophils Percent Auto 72.2 % (45-73); Platelet Count 257 X10*3/uL (160-400); Red Blood Count 4.18 X10*6/uL (4.60-5.80); White Blood Count 11.7 X10*3/uL (4.8-10.8)
[2024-03-15 16:39] LABS: Estimated Glomerular Filt Rate > 60
== END 2024-03-15 12:41 | disposition home or self-care (01) ==
LOC: HO.HVNA 12:40
PROVIDERS: PCP Internal Medicine; Visit Provider Internal Medicine
DX: Z79.2 Long term (current) use of antibiotics (principal)
CPT/HCPCS: 36415; 82550; 82565; 85025; 85652

== ENCOUNTER 2024-03-15 13:39 | Outpatient (AMB) | payer OTHER, SELFPAY ==
[2024-03-15 13:40] VITALS: BP 142/76; PULSE 97; O2SAT 98; BMI 29.8
--- NOTE | 2024-03-15 13:40 | MHC.PC.OV ---
Vital Signs 03/15/24 13:40 Height 5 ft 10 in Weight 208 lb BMI 29.8 BP 142/76 H Blood Pressure Location Lt brachial Position Sitting Pulse 97 Pulse Source Pulse Oximeter Pulse Oximetry (%) 98 Oxygen Delivery Method Room Air Intake Visit Reasons: Annual PE Supervisor Of Way Required: No Cigar Tobacco Rehandler: Not Required per policy Accompanied by: Self / Same As Patient Allergies liraglutide Adverse Reaction (Unknown, Verified 03/15/24 13:41) diarrhea Tobacco use date assessed: 03/15/24 Dental Screening Dental Screen Date: 03/15/24 Did you have a dental visit in the last 12 months?: No Did you have a dental problem in the last 6 months where you did not have access to dental care?: No Was dental information given to patient?: Patient has dentist HPI Annual PE HPI Details has DM and not seen in 2 years; currently being treeated for osteomyelits right foot with 5th MT fracture; he has a pic line placed and is seeing ID; currently compliant with meds [facility] Medical History (Updated 02/21/24 @ 00:01 by Jose Reynolds) Uncontrolled type 2 diabetes mellitus with hyperglycemia Charcot's joint of foot due to diabetes Swelling of left foot Osteomyelitis of left foot Obesity Type 2 diabetes mellitus with diabetic polyneuropathy Hyperlipidemia LDL goal <100 Essential hypertension Diabetes mellitus with hyperglycemia Surgical History Hx of colonoscopy No history of previous surgery Family History Father No problems noted. Mother No problems noted. Social History Household Members: Family Household Members Other:: 1 Housing: House Patient Tobacco Use Status: Never used Tobacco e-Cigarette/Vaping Use: Never Used Second Hand Smoke Exposure: No service: No Current occupational status: unemployed Cognitive needs: No Hearing needs: No Vision needs: Yes (glasses) Questionnaire PHQ-9 Over the last 2 weeks, how often have you been bothered by any of the following problems? 1. Little interest or pleasure in doing things: not at all 2. Feeling down, depressed, or hopeless: not at all 3. Trouble falling or staying asleep, or sleeping too much: not at all 4. Feeling tired or having little energy: not at all 5. Poor appetite or overeating: not at all 6. Feeling bad about yourself - or that you are a failure or have let yourself or your family down: not at all 7. Trouble concentrating on things, such as reading the newspaper or watching television: not at all 8. Moving or speaking so slowly that other people could have noticed. Or the opposite - being so fidgety or restless that you have been moving around a lot more than usual: not at all 9. Thoughts that you would be better off or of hurting yourself in some way: not at all Total score: 0 Depression Screening Interpretation: Negative Depression Screening Done: Yes Source: Developed by Drs. Tom Cota, Michael Coronado and colleagues, with an educational michael from [employer]. Thrive Questionnaire Date Thrive assessed: 02/15/24 AUDIT C Alcohol Use Questionnaire (AUDIT-C) 1. How often do you have a drink containing alcohol?: Never Total Score: 0 Score Reviewed/Action Taken: Yes OSCAR-7 AMB Questionnaire OSCAR-7 Date OSCAR - 7 assessed: 03/15/24 Feeling nervous, anxious, or on edge: 0 = Not at all Not being able to stop or control worryin = Not at all Worrying too much about different things: 0 = Not at all Trouble relaxin = Not at all Being so restless that it is hard to sit still: 0 = Not at all Becoming easily annoyed or irritable: 0 = Not at all Feeling afraid as if something awful might happen: 0 = Not at all Total OSCAR-7 score (0-4 normal; 5-9 mild; 10-14 moderate; 15-21 severe): 0 Source: Developed by Drs. Tom Cota, Michael Coronado and colleagues, with an educational michael from [employer]. Review of Systems Const Denies chills, Denies headache(s) and Denies weight loss ENT Denies headache(s) Card Denies chest pain, Denies syncope, Denies irregular heart rhythm and Denies dyspnea Resp Denies chest congestion, Denies cough and Denies dyspnea GI Denies abdominal pain, Denies change in stool character, Denies nausea and Denies vomiting Musc Denies deformity and Denies joint swelling Neuro Denies syncope and Denies headache(s) Physical exam (Primary Care) Vital Signs: Last Vital Signs Pulse 97 03/15/24 13:40 BP 142/76 H 03/15/24 13:40 Pulse Ox 98 03/15/24 13:40 Oxygen Delivery Method Room Air 03/15/24 13:40 BMI result Body Mass Index 29.8 Tobacco/Smoking Status: Tobacco use Status Tobacco use date assessed 03/15/24 03/15/24 13:44 Patient Tobacco Use Status Never used Tobacco 03/15/24 13:44 e-Cigarette/Vaping Use Never Used 03/15/24 13:44 PHQ-9: PHQ-9 Score PHQ-9: Total score 0 03/15/24 13:44 Depression Screening Interpretation: Negative Thrive Assessment: Date of Thrive Assessment Date Thrive assessed 02/15/24 03/15/24 13:44 Const General: cooperative, comfortable, no acute distress and alert Neck Neck: Yes no lymphadenopathy Thyroid: Thyroid normal Resp Effort & Inspection: normal respiratory effort Auscultation: clear to auscultation bilaterally Percussion: percussion normal Cardio Jugular venous distension: no JVD Palpation: normal PMI Rate: regular rate Rhythm: regular rhythm Heart sounds: S1 normal heart sound present and S2 normal heart sound present GI Inspection: Yes normal to inspection Palpation (GI): No hepatosplenomegaly present Skin General skin exam: no rashes or lesions noted Extrem General: Yes no clubbing, cyanosis or edema Assessment and Plan Assessment & Plan (1) Osteomyelitis of left foot: Code(s): M86.9 - Osteomyelitis, unspecified Plan: as per ID (2) Type 2 diabetes mellitus with diabetic polyneuropathy: Code(s): E11.42 - Type 2 diabetes mellitus with diabetic polyneuropathy Qualifiers: Diabetes mellitus [facility] insulin use: without [facility] use Qualified Code(s): E11.42 - Type 2 diabetes mellitus with diabetic polyneuropathy Plan: needs labs done; cont rx for now Medications: Refilled empagliflozin (Jardiance) 10 mg PO DAILY 30 tabs 1RF Coding Level of Care Code Est Pt Level 3 (86522) Diagnoses Osteomyelitis of left foot M86.9 Type 2 diabetes mellitus with diabetic polyneuropathy, without long-term current use of insulin 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
== END 2024-03-15 14:10 | disposition home or self-care (01) ==
PROVIDERS: PCP Internal Medicine; Visit Provider Internal Medicine
DX: M86.9 Osteomyelitis, unspecified (principal); E11.42 Type 2 diabetes mellitus with diabetic polyneuropathy
CPT/HCPCS: 99213

== ENCOUNTER 2024-03-16 13:25 | Outpatient (AMB) | payer OTHER, SELFPAY ==
--- NOTE | 2024-03-16 13:50 | MHC.OFFVIS ---
Vital Signs 03/16/24 13:51 Height 5 ft 10 in Weight 208 lb BMI 29.8 Pulse 99 Pulse Source Pulse Oximeter Temp 98.8 F Temp Source Oral Pulse Oximetry (%) 99 Oxygen Delivery Method Room Air Intake Visit Reasons: [place] [place] Allergies liraglutide Adverse Reaction (Unknown, Verified 03/16/24 13:55) diarrhea HPI [place] [place]: Details: He is week 02/19 IV Daptomycin and ertapenem for left foot OM presumed. I saw him 02/14 in hospital. He has swelling foot but is walking. He has no fever and labs have been unremarkable. [facility] Medical History Uncontrolled type 2 diabetes mellitus with hyperglycemia Charcot's joint of foot due to diabetes Swelling of left foot Osteomyelitis of left foot Obesity Type 2 diabetes mellitus with diabetic polyneuropathy Hyperlipidemia LDL goal <100 Essential hypertension Diabetes mellitus with hyperglycemia Surgical History Hx of colonoscopy No history of previous surgery Family History Father No problems noted. Mother No problems noted. Social History Household Members: Family Household Members Other:: 1 Housing: House Patient Tobacco Use Status: Never used Tobacco e-Cigarette/Vaping Use: Never Used Second Hand Smoke Exposure: No service: No Current occupational status: unemployed Cognitive needs: No Hearing needs: No Vision needs: Yes (glasses) Review of Systems Const All systems reviewed & are unremarkable except as noted in HPI and below Physical Exam Vital Signs: Last Vital Signs Temp 98.8 F 03/16/24 13:51 Pulse 99 03/16/24 13:51 Pulse Ox 99 03/16/24 13:51 Oxygen Delivery Method Room Air 03/16/24 13:51 BMI result Body Mass Index 29.8 Const Other: General: cooperative Orientation/consciousness: patient oriented x3 HEENT Head: Yes normal to inspection Mouth: Normal oral and palatal mucosa present Eyes General: appearance normal, both eyes and all related structures Pupils: Equal, round and reactive pupils present Resp Effort & Inspection: normal respiratory effort Cardio Rate: regular rate Rhythm: regular rhythm GI Palpation (GI): Soft to palpation and nontender General: Yes no CVA tenderness Back/Spine/Pelvis Back: no CVA tenderness Skin General skin exam: no rashes or lesions noted Neuro General: patient oriented x3 Cranial nerves: Yes CN's II-XII intact bilaterally and Yes Equal, round and reactive pupils present Extrem Other: swelling left foot ,pulses intact Psych Appearance: grossly normal Assessment & Plan Assessment & Plan (1) Osteomyelitis: Comment: He is tolerating antibiotics but foot swelling bothersome. Code(s): M86.9 - Osteomyelitis, unspecified Category: Medical Plan: See in two weeks and likely stop IV antibiotics around 03/30. (2) Closed navicular fracture of left foot: Code(s): S92.252A - Displaced fracture of navicular [scaphoid] of left foot, initial encounter for closed fracture Category: Medical Plan: n/a (3) Osteomyelitis of left foot: Code(s): M86.9 - Osteomyelitis, unspecified Category: Medical Plan: na Coding Level of Care Code Est Pt Level 3 (75388) Diagnoses Osteomyelitis M86.9 Closed navicular fracture of left foot S92.252A Osteomyelitis of left foot M86.9
[2024-03-16 13:51] VITALS: PULSE 99; TEMP 37.1; O2SAT 99; BMI 29.8
== END 2024-03-16 14:23 | disposition home or self-care (01) ==
PROVIDERS: PCP Internal Medicine; Visit Provider Internal Medicine
DX: M86.9 Osteomyelitis, unspecified (principal); S92.252A Displaced fracture of navicular [scaphoid] of left foot, initial encounter for closed fracture
CPT/HCPCS: 99213

== ENCOUNTER → 2024-03-16 13:25 | Outpatient (BNVA) | payer OTHER, SELFPAY | PROVIDERS: PCP Internal Medicine; Visit Provider Internal Medicine | DX: M86.9 Osteomyelitis, unspecified (principal) | CPT/HCPCS: 99212 ==

== ENCOUNTER 2024-03-21 12:45 | Outpatient (REF) | payer OTHER, SELFPAY ==
[2024-03-22 16:34] LABS: MANUAL DIFF FLAG NO
[2024-03-22 16:39] LABS: Basophils Percent Auto 0.3 % (0-2); Eosinophils Absolute Auto 0.2 X10*3/uL (0.0-0.4); Eosinophils Percent Auto 2.3 % (0-4); Hematocrit 36.2 % (42.0-52.0); Hemoglobin 11.8 g/dl (14.0-18.0); Imm Gran Abs Auto 0.03 X10*3/uL (0.00-0.03); Imm Gran Pct Auto 0.3 % (0.0-0.4); Lymphocytes Absolute Auto 1.7 X10*3/uL (1.2-4.9); Lymphocytes Percent Auto 18.8 % (20-40); Mean Corpuscular HGB Conc 32.6 g/dl (31.0-36.0); Mean Corpuscular Hemoglobin 27.2 pg (27.0-33.0); Mean Corpuscular Volume 83.4 fL (80.0-98.0); Mean Platelet Volume 10.5 fL (9.4-12.4); Monocytes Absolute Auto 0.7 X10*3/uL (0.1-1.2); Neutrophils Absolute Auto 6.6 x10*3/uL (2.0-8.3); Neutrophils Percent Auto 71.3 % (45-73); Platelet Count 303 X10*3/uL (160-400); Red Blood Count 4.34 X10*6/uL (4.60-5.80); White Blood Count 9.3 X10*3/uL (4.8-10.8)
[2024-03-22 17:29] LABS: Erythrocyte Sedimentation Rate 85 MM/HR (0-15)
== END 2024-03-21 12:46 | disposition home or self-care (01) ==
LOC: HO.HVNA 12:45
PROVIDERS: Visit Provider Internal Medicine
DX: M86.172 Other acute osteomyelitis, left ankle and foot (principal)
CPT/HCPCS: 36415; 82550; 85025; 85652

== ENCOUNTER 2024-03-23 13:46 | Outpatient (AMB) | payer OTHER, SELFPAY ==
[2024-03-23 13:48] VITALS: BP 161/74; PULSE 95; BMI 30.3
--- NOTE | 2024-03-23 13:48 | A.OFFVIS_ITS ---
Vital Signs 03/23/24 13:48 Height 5 ft 10 in Weight 211 lb BMI 30.3 BP 161/74 H Blood Pressure Location Lt brachial Position Sitting Pulse 95 Intake Visit Reasons: Hospital follow-up cellulitis of left foot Intake Note: This patient presents for a hospital follow-up for cellulitis of the left foot. Patient c/o; reports swelling has not resolved. Microfilm Mounter Required: No Accompanied by: Self / Same As Patient Allergies liraglutide Adverse Reaction (Unknown, Verified 03/23/24 14:06) diarrhea Medication List - Last Reconciled 03/23/24 by Papa Colon MD atenolol 50 mg PO DAILY blood sugar diagnostic (FreeStyle Test strips) three times a day cholecalciferol (vitamin D3) (Vitamin D3) 125 mcg PO DAILY daptomycin 950 mg IV Q24H empagliflozin (Jardiance) 10 mg PO DAILY ertapenem 1 g IV DAILY 6 weeks glyburide Take 1 tab every morning and 2 tabs every evening PO; 30 days lancets (FreeStyle Lancets) three times a day HPI HPI Hospital follow-up cellulitis of left foot: Details: This 8-year-old male referred for a fracture of the foot. He had been admitted to the hospital last 02/14/2024 because of cellulitis and edema of the left foot. His imaging studies showed what appeared to a comminuted fracture of the base of the 2nd metatarsal. He was also seen by ID and was started on antibiotics via a PICC line because of a presumed cellulitis. He continues to have edema of the foot. [facility] Medical History Uncontrolled type 2 diabetes mellitus with hyperglycemia Charcot's joint of foot due to diabetes Swelling of left foot Osteomyelitis of left foot Obesity Type 2 diabetes mellitus with diabetic polyneuropathy Hyperlipidemia LDL goal <100 Essential hypertension Diabetes mellitus with hyperglycemia Surgical History Hx of colonoscopy No history of previous surgery Family History Father No problems noted. Mother No problems noted. Social History Household Members: Family Household Members Other:: 1 Housing: House Patient Tobacco Use Status: Never used Tobacco e-Cigarette/Vaping Use: Never Used Second Hand Smoke Exposure: No service: No Current occupational status: unemployed Cognitive needs: No Hearing needs: No Vision needs: Yes (glasses) Review of Systems Const Denies chills and Denies fever(s) Card Denies chest pain, Denies dyspnea and Denies dyspnea on exertion Resp Denies cough, Denies dyspnea and Denies dyspnea on exertion GI Denies hematochezia and Denies change in bowel habits Denies hematuria and Denies difficulty urinating Musc Denies back pain and Denies limited range of motion Neuro Denies focal weakness and Denies convulsions Psych Denies depression and Denies mood swings Physical Exam Vital Signs: Last Vital Signs Pulse 95 03/23/24 13:48 BP 161/74 H 03/23/24 13:48 BMI result Body Mass Index 30.3 Const General: comfortable and no acute distress Orientation/consciousness: patient oriented x3 Neck Neck: Yes no lymphadenopathy Resp Auscultation: clear to auscultation bilaterally Cardio Rhythm: regular rhythm GI Palpation (GI): Soft to palpation, nontender and no guarding Neuro General: patient oriented x3 Extrem Other: Edema of the dorsum of the left foot and tenderness Assessment & Plan Assessment & Plan (1) Comminuted fracture: Code(s): T14.8XXA - Other injury of unspecified body region, initial encounter Category: Medical Plan: He has a comminuted fracture of the base of the 2nd metatarsal on the left foot. I explained to him that it is best for him to follow up with his orthopedic doctor or auto electrical technician with regards to this. There has no obvious cellulitis. I have reviewed his imaging studies and this were if equivocal for cellulitis. I told him therefore to follow up with his infectious disease doctor I wrapped his foot with an Hubert bandage. He is to continue to wear the walking boot Again, I emphasized to him that he should be followed up with an orthopedic doctor. Coding Level of Care Code New Pt Level 3 (61541) Diagnoses Comminuted fracture T14.8XXA
== END 2024-03-23 14:45 | disposition home or self-care (01) ==
PROVIDERS: PCP Internal Medicine; Visit Provider Surgery
DX: T14.8XXA Other injury of unspecified body region, initial encounter (principal)
CPT/HCPCS: 99203

== ENCOUNTER → 2024-03-23 13:46 | Outpatient (BNVA) | payer OTHER, SELFPAY | PROVIDERS: PCP Internal Medicine; Visit Provider Surgery | DX: Z09 Encounter for follow-up examination after completed treatment for conditions other than malignant neoplasm (principal); L03.116 Cellulitis of left lower limb; S92.325A Nondisplaced fracture of second metatarsal bone, left foot, initial encounter for closed fracture; X58.XXXA Exposure to other specified factors, initial encounter; Y93.9 Activity, unspecified; Y92.9 Unspecified place or not applicable; Y99.9 Unspecified external cause status | CPT/HCPCS: 99202 ==

== ENCOUNTER 2024-03-30 14:13 | Outpatient (AMB) | payer OTHER, SELFPAY ==
--- NOTE | 2024-03-30 14:14 | MHC.OFFVIS ---
Vital Signs 03/30/24 14:34 Height 5 ft 10 in Weight 209 lb 7.026 oz BMI 30.0 Pulse 72 Pulse Oximetry (%) 99 Oxygen Delivery Method Room Air Intake Visit Reasons: F/U,2 wks Allergies liraglutide Adverse Reaction (Intermediate, Verified 04/07/24 14:22) diarrhea HPI HPI F/U,2 wks: Details: He has finished six weeks of IV antibiotics. He has been on Daptomycin and Ertapenem. He has been still having pain in foot ,but no redness but has swelling. He says antibiotics havent made much difference. [facility] Medical History Uncontrolled type 2 diabetes mellitus with hyperglycemia Charcot's joint of foot due to diabetes Swelling of left foot Osteomyelitis of left foot Obesity Type 2 diabetes mellitus with diabetic polyneuropathy Hyperlipidemia LDL goal <100 Essential hypertension Diabetes mellitus with hyperglycemia Surgical History Hx of colonoscopy No history of previous surgery Family History Father No problems noted. Mother No problems noted. Social History Household Members: Family Household Members Other:: 1 Housing: House Alcohol intake: never Patient Tobacco Use Status: Never used Tobacco Smoked in Last 30 Days: No e-Cigarette/Vaping Use: Never Used Second Hand Smoke Exposure: No Use of substances other than those prescribed or required for medical reasons: No Advance Directives: No Do you have a plan to hurt others: No Plan Nutrition Risks: No Nutritional Risk service: No Current occupational status: unemployed Cognitive needs: No Hearing needs: No Vision needs: Yes (glasses) Review of Systems Const All systems reviewed & are unremarkable except as noted in HPI and below Physical Exam Vital Signs: Last Vital Signs Pulse 72 03/30/24 14:34 Pulse Ox 99 03/30/24 14:34 Oxygen Delivery Method Room Air 03/30/24 14:34 BMI result Body Mass Index 30.0 Const Other: General: cooperative Orientation/consciousness: patient oriented x3 HEENT Head: Yes normal to inspection Mouth: Normal oral and palatal mucosa present Eyes General: appearance normal, both eyes and all related structures Pupils: Equal, round and reactive pupils present Resp Effort & Inspection: normal respiratory effort Cardio Rate: regular rate Rhythm: regular rhythm GI Palpation (GI): Soft to palpation and nontender General: Yes no CVA tenderness Back/Spine/Pelvis Back: no CVA tenderness Skin General skin exam: no rashes or lesions noted Neuro General: patient oriented x3 Cranial nerves: Yes CN's II-XII intact bilaterally and Yes Equal, round and reactive pupils present Extrem Other: left foot swelling Psych Appearance: grossly normal Assessment & Plan Assessment & Plan (1) Osteomyelitis: Comment: He is tolerating antibiotics but foot swelling bothersome. Code(s): M86.9 - Osteomyelitis, unspecified Category: Medical Plan: Stop antibiotics See Senior Manager Quality Assurance. Orders: Orders IR cvc remove any age 0503/30/24 M86.9 - Osteomyelitis, unspecified Coding Level of Care Code Est Pt Level 3 (63960) Diagnoses Osteomyelitis M86.9
[2024-03-30 14:34] VITALS: PULSE 72; O2SAT 99
== END 2024-03-30 15:03 | disposition home or self-care (01) ==
LOC: HO.HID 14:13
PROVIDERS: PCP Internal Medicine; Visit Provider Internal Medicine
DX: M86.9 Osteomyelitis, unspecified (principal)
CPT/HCPCS: 99213

== ENCOUNTER → 2024-03-30 14:13 | Outpatient (BNVA) | payer OTHER, SELFPAY | PROVIDERS: PCP Internal Medicine; Visit Provider Internal Medicine | DX: M86.9 Osteomyelitis, unspecified (principal) | CPT/HCPCS: 99212 ==

== ENCOUNTER 2024-04-07 14:07 | Inpatient (IN) | payer OTHER, SELFPAY ==
--- NOTE | ~2024-04-07 | US_ITS ---
EXAMINATION: NONINVASIVE ASSESSMENT OF THE ARTERIES OF THE RIGHT LOWER EXTREMITIES INCLUDING BILATERAL LOWER EXTREMITY DUPLEX. CLINICAL INFORMATION: Rule out peripheral vascular disease COMPARISON: None TECHNIQUE: duplex Doppler techniques with wave form analysis and measurement of velocities in the right common femoral, profunda femoral, superficial femoral, popliteal, tibial and peroneal arteries. The study was performed only at rest. FINDINGS: RIGHT LEG Common femoral artery: 145 cm/s, Multiphasic Profunda femoris artery: 69 cm/s, Multiphasic Superficial femoral artery (proximal): 111 cm/s, Multiphasic Superficial femoral artery (mid): 102 cm/s, Multiphasic Superficial femoral artery (distal): 102 cm/s, Multiphasic Proximal Popliteal artery: 304 cm/s, Multiphasic Mid posterior tibial artery: 93 cm/s, monophasic Peroneal artery: 53 cm/s, monophasic US/US arterial duplex LE LT IMPRESSION: Elevated velocity in the right popliteal artery suggesting moderate stenosis with monophasic flow distally.
--- NOTE | ~2024-04-07 | CT_ITS ---
EXAMINATION: CT left foot with contrast CLINICAL INFORMATION: Swelling. Recent osteomyelitis. COMPARISON: CT left foot February 14, 2024. MR left foot February 15, 2024 TECHNIQUE: 85 mL Omnipaque 350 injected intravenously. Axial images obtained through the left foot. Coronal and sagittal reformatted images are performed at CT scanner. [This CT examination was performed using dose optimization techniques as appropriate, variously including the following: *Automated exposure control *Adjustment of mA and/or kV according to patient size (this includes techniques or standardized protocols for targeted exams where dose is matched to indication/reason for exam; i.e. extremities or head) *Use of iterative reconstruction technique] Dose: 158 DLP FINDINGS: There is loss of bone and fragmentation of bone at the medial side of the navicular bone. There are is in addition irregularity of the articular surface of the medial cuneiform adjacent to this fragmentation of bone. There is loss of cortex of the lateral base of the first metatarsal the metatarsal tarsal joint. There is progressive subluxation of the first metatarsal relative to the middle cuneiform. These changes are new since prior study February 14, 2024. Small subchondral cystic changes of the middle cuneiform at the medial side of the bone are similar to prior study February 14, 2024. There is fracture and fragmentation of the inferior proximal base of the lateral cuneiform which is new since prior study February 14, 2024 . There is loss of bone involving the cortical line of the cuboid at the articulation with the base of the fifth metatarsal and fourth metatarsal. There is loss of cortical line of the proximal fifth metatarsal and fourth metatarsal at this articulation with the cuboid. This is new since prior study February 14, 2024. Fragmentation and loss of bone of the proximal second and third metatarsal at the metatarsal tarsal joint is similar to CAT scan February 14, 2024. Dislocation of the second and third metatarsal tarsal-tarsal articulation remains similar prior exam as well. The Lisfranc joint remains disrupted similar prior studies. There is diffuse soft tissue swelling at the plantar side of foot around the metatarsal tarsal articulation region. No drainable fluid collection. The calcaneus and the talus remain intact. CT/CT foot LT w IV con IMPRESSION: Multiple new findings of the mid foot primarily around the metatarsal tarsal joints and involving the cuneiforms, cuboid and navicular bone. Soft tissue swelling at the midfoot and no abscess. These progressive bone changes are suspicious for osteomyelitis. Clinically correlate.
--- NOTE | 2024-04-07 14:17 | ED.LOWEXIN ---
HPI - Extremity Injury (Lower) General Chief Complaint: Extremity Injury, Lower Stated Complaint: Swelling L foot Time Seen by Provider: 04/07/24 18:10 Source: patient Mode of arrival: ambulatory Limitations: no limitations History of Present Illness ED Provider: Mo Case PA-C HPI Narrative: 58-year-old male with history of poorly controlled type 2 diabetes, Charcot left foot w/ recent osteomyelitis status post 6 weeks of ertapenem and daptomycin, completed treatment 8 days ago who presents back to the ER for evaluation of worsening swelling and firmness of the left foot. He denies any new injury. He just saw Dr. Guerra in the office last week. He reports the foot has been getting more swollen on both the top and bottom surfaces. He denies any fever or chills. No new open wounds. complaint: foot injury Onset (ago): week(s) Injury: Left: foot Severity: moderate Relieving factors: immobilization and rest Exacerbating factors: weight bearing, movement and palpation Associated symptoms: swelling and able to partially bear weight Other symptoms: none Related Data Home Medications ?Medication ?Instructions ?Recorded ?Confirmed cholecalciferol (vitamin D3) 125 125 mcg PO DAILY 02/14/24 03/23/24 mcg (5,000 unit) tablet (Vitamin D3) Previous Rx's ?Medication ?Instructions ?Recorded blood sugar diagnostic (FreeStyle #10 ea 04/24/23 Test strips) lancets 28 gauge (FreeStyle #100 ea 06/08/23 Lancets) daptomycin 500 mg intravenous 950 mg IV Q24H #42 ea 02/17/24 solution ertapenem 1 gram solution for 1 g IV DAILY 6 weeks 02/17/24 injection atenolol 50 mg tablet 50 mg PO DAILY #90 tabs 03/14/24 empagliflozin 10 mg tablet 10 mg PO DAILY #30 tabs 03/15/24 (Jardiance) glyburide 5 mg tablet See Rx Instructions PO .COMPLEX 30 04/01/24 days #270 tabs Allergies Allergy/AdvReac Type Severity Reaction Status Date / Time liraglutide AdvReac Intermediate diarrhea Verified 04/07/24 14:22 Review of Systems Review of Systems: Yes all other systems are reviewed and are negative PMFSH Past Medical History Medical History Uncontrolled type 2 diabetes mellitus with hyperglycemia Charcot's joint of foot due to diabetes Swelling of left foot Osteomyelitis of left foot Obesity Type 2 diabetes mellitus with diabetic polyneuropathy Hyperlipidemia LDL goal <100 Essential hypertension Diabetes mellitus with hyperglycemia Surgical History Hx of colonoscopy No history of previous surgery Family History Family History Father No problems noted. Mother No problems noted. Social History Social History Household Members: Family Household Members Other:: 1 Housing: House Alcohol intake: never Patient Tobacco Use Status: Never used Tobacco Smoked in Last 30 Days: No e-Cigarette/Vaping Use: Never Used Second Hand Smoke Exposure: No Use of substances other than those prescribed or required for medical reasons: No Advance Directives: No Do you have a plan to hurt others: No Plan Nutrition Risks: No Nutritional Risk service: No Current occupational status: unemployed Cognitive needs: No Hearing needs: No Vision needs: Yes (glasses) Physical Exam Vital Signs: Vital Signs: Last Vital Signs Temp 98.0 F 04/08/24 01:49 Pulse 67 04/08/24 01:49 Resp 16 04/08/24 01:49 BP 115/67 04/08/24 01:49 Pulse Ox 96 04/08/24 01:49 O2 Del Method Room Air 04/08/24 01:49 BMI result Body Mass Index 30.3 Appearance: Alert. Oriented X3. No acute distress. Head: normocephalic, atraumatic. Eyes: Pupils equal, round and reactive to light. ENT: Pharynx normal. No tonsillar swelling or exudate. Neck: Normal inspection. Neck supple. CVS: Normal heart rate and rhythm. Pulses normal. Respiratory: No respiratory distress. Breath sounds normal. Abdomen: Soft and nontender. +BS x4 Skin: Skin warm and dry. Normal skin color. Normal skin turgor. No rashes. Extremities: Left foot is markedly swollen, 3+ pitting edema on the top of the foot. There is also significant soft tissue swelling on the plantar surface of the foot with a small, punctate area of blackened discoloration, no open wound or drainage from the area. Mildly fluctuant. Foot is warm and well perfused with 1+ DP and PT pulses. Neuro/psych: Oriented X 3. No motor deficit. No sensory deficit. CN II-XII intact. Normal speech and cognition. Course Course Course Narrative: This is a Rapid Medical Examination (RME) performed by James Hernandez PA-C in triage. Full HPI, ROS, assessment and treatment plan per primary provider in the Main ED. 58-year-old with past medical history significant for type 2 diabetes, not well controlled, here for eval of left foot swelling/ irritation x1 week. MRI foot on 02/15/24 comminuted fracture and dislocation 2nd tarsometatarsal multiple ossific, osteomyelitis. He completed 6 wks of abx last week. following w/ dr. guerra outpatient, last seen on 03/30/24, who he states is recommending CTA of foot. he has attempted to call PCP however has not heard back. +noted swelling to left foot. pt pulse intact. no noted erythema or skin changes. no wounds/ ulcerations. ambulating with steady gait w/ walking boot. Plan: labs +/- imaging per primary provider. Medications Administered Generic Name Dose Route Start Last Admin Trade Name Freq PRN Reason Stop Dose Admin Enoxaparin Sodium 40 mg 04/08/24 01:00 04/08/24 01:10 Enoxaparin Sodium 40 Mg/0.4 Ml Syringe SUBCUT Not Given BEDTIME TERRENCE Ertapenem 1 gm/ Sodium 50 mls @ 100 mls/hr 04/08/24 03:00 04/08/24 04:12 Chloride IV Infused DAILY TERRENCE Infusion Insulin Glargine 18 unit 04/08/24 02:30 04/08/24 03:40 Insulin Glargine,Hum.Rec.Anlog 100 Unit/Ml 10 Ml Vial SUBCUT 18 unit BEDTIME TERRENCE Administration Insulin Human Lispro 0 unit 04/08/24 07:30 04/08/24 07:41 Insulin Lispro 100 Unit/Ml 3 Ml Vial SUBCUT 2 unit QIDACHS TERRENCE Administration Protocol Sodium Chloride 3 ml 04/08/24 08:00 04/08/24 07:41 0.9 % Sodium Chloride Flush 3 Ml Syringe IVFLUSH 3 ml QSHIFT TERRENCE Administration Discontinued Medications Generic Name Dose Route Start Last Admin Trade Name Freq PRN Reason Stop Dose Admin Piperacillin Sod/Tazobactam 50 mls @ 100 mls/hr 04/08/24 00:00 04/08/24 01:07 Sod 3.375 gm/ Sodium Chloride IV 04/08/24 00:29 Infused ONCE ONE Infusion Vancomycin HCl 2,000 mg in 500 mls @ 250 mls/hr 04/08/24 00:01 04/08/24 03:10 Vancomycin/Ns IV 04/08/24 02:00 Infused ONCE ONE Infusion Iohexol 85 ml 04/07/24 19:56 04/07/24 19:57 Iohexol 350 Mg/Ml 100 Ml Infus..Btl IV 04/07/24 19:57 85 ml ONCE ONE Administration Medical Decision Making Medical Decision Making [facility] Narrative: 58-year-old male with history of poorly controlled type 2 diabetes, Charcot left foot w/ recent osteomyelitis status post 6 weeks of ertapenem and daptomycin, completed treatment 8 days ago who presents back to the ER for evaluation of worsening swelling and firmness of the left foot. On arrival to the ER patient's vital signs are stable. He is afebrile. Lab work today shows a mild leukocytosis of 11.6. Inflammatory markers added on to his labs. His exam was concerning with a significant soft tissue swelling, concern for possible underlying abscess so a CT scan with contrast was performed. This showed significant worsening findings compared to his prior imaging. Concerning that his osteomyelitis is worsening after he completed treatment with daptomycin and ertapenem x6 weeks. Will start vanco and Zosyn and plan to admit to the hospital. Patient updated on plan of care and is in agreement. Differential Diagnosis Differential Diagnoses: The differential diagnosis associated with the presentation includes Osteomyelitis, deep tissue abscess, cellulitis Admission/Observation Consideration of admission/observation: Escalation of care including admission/observation considered Consult Healthcare Provider Management of the patient was discussed with: Hospitalist Dr. Hernandez Lab Data [facility] Lab Attestation statement: I reviewed the patient's lab results. Mild leukocytosis, mild normocytic anemia 04/08/24 05:37 04/08/24 05:37 Labs: Lab Results 04/07/24 04/08/24 Range/Units 14:40 00:36 WBC 11.6 H (4.8-10.8) X10*3/uL RBC 4.69 (4.60-5.80) X10*6/uL Hgb 12.9 L (14.0-18.0) g/dl Hct 39.6 L (42.0-52.0) % MCV 84.4 (80.0-98.0) fL MCH 27.5 (27.0-33.0) pg MCHC 32.6 (31.0-36.0) g/dl RDW 14.6 (11.0-16.0) % Plt Count 226 D (160-400) X10*3/uL MPV 10.1 (9.4-12.4) fL Immature Gran % (Auto) 0.4 (0.0-0.4) % Neut % (Auto) 67.8 (45-73) % Lymph % (Auto) 22.1 (20-40) % [place] % (Auto) 7.3 (2-11) % Eos % (Auto) 2.0 (0-4) % Baso % (Auto) 0.4 (0-2) % Lymph # (Auto) 2.6 (1.2-4.9) X10*3/uL [place] # (Auto) 0.8 (0.1-1.2) X10*3/uL Eos # (Auto) 0.2 (0.0-0.4) X10*3/uL Baso # (Auto) 0.1 (0.0-0.2) X10*3/uL Abs Immat Gran (auto) 0.05 H (0.00-0.03) X10*3/uL Absolute Neuts (auto) 7.8 (2.0-8.3) x10*3/uL Absolute Nucleated RBC 0.000 (0.0-0.012) X10*3/uL Nucleated RBC % (auto) 0.0 (0.0-0.2) /100WBC ESR 83 H (0-15) MM/HR Sodium 140 (135-145) mmol/L Potassium 4.7 (3.3-5.1) mmol/L Chloride 103 (96-108) mmol/L Carbon Dioxide 28 (22-29) mmol/L Anion Gap 14 (12-20) BUN 15 (9-16) mg/dL Creatinine 1.07 (0.5-1.4) mg/dL Estim Creat Clear Calc 89.5 Estimated GFR > 60 Random Glucose 236 H (60-115) mg/dL Calcium 10.4 H D (8.4-10.2) mg/dL Magnesium 1.8 (1.6-2.6) mg/dL Total Bilirubin 0.5 (0.0-1.0) mg/dL AST 7 (5-37) U/L ALT 8 (0-40) U/L Alkaline Phosphatase 74 (39-117) U/L C-Reactive Protein 2.69 H (< or = 0.50) mg/dL Total Protein 8.8 H (6.5-8.0) g/dL Albumin 4.1 (3.5-5.0) g/dL Lipase 6 L (8-78) U/L Hold Red Top See Note Independent Interpretation I performed an independent interpretation of an: CT Scan Interpretation: Significant soft tissue swelling, multiple abnormal bony findings, agree with radiology read Radiology Impression Discussion of test interpretation with radiology: I have reviewed the radiologist's reading. Radiologist Impression: EXAMINATION: CT left foot with contrast CLINICAL INFORMATION: Swelling. Recent osteomyelitis. COMPARISON: CT left foot February 14, 2024. MR left foot February 15, 2024 TECHNIQUE: 85 mL Omnipaque 350 injected intravenously. Axial images obtained through the left foot. Coronal and sagittal reformatted images are performed at CT scanner. [This CT examination was performed using dose optimization techniques as appropriate, variously including the following: *Automated exposure control *Adjustment of mA and/or kV according to patient size (this includes techniques or standardized protocols for targeted exams where dose is matched to indication/reason for exam; i.e. extremities or head) *Use of iterative reconstruction technique] Dose: 158 DLP FINDINGS: There is loss of bone and fragmentation of bone at the medial side of the navicular bone. There are is in addition irregularity of the articular surface of the medial cuneiform adjacent to this fragmentation of bone. There is loss of cortex of the lateral base of the first metatarsal the metatarsal tarsal joint. There is progressive subluxation of the first metatarsal relative to the middle cuneiform. These changes are new since prior study February 14, 2024. Small subchondral cystic changes of the middle cuneiform at the medial side of the bone are similar to prior study February 14, 2024. There is fracture and fragmentation of the inferior proximal base of the lateral cuneiform which is new since prior study February 14, 2024 . There is loss of bone involving the cortical line of the cuboid at the articulation with the base of the fifth metatarsal and fourth metatarsal. There is loss of cortical line of the proximal fifth metatarsal and fourth metatarsal at this articulation with the cuboid. This is new since prior study February 14, 2024. Fragmentation and loss of bone of the proximal second and third metatarsal at the metatarsal tarsal joint is similar to CAT scan February 14, 2024. Dislocation of the second and third metatarsal tarsal-tarsal articulation remains similar prior exam as well. The Lisfranc joint remains disrupted similar prior studies. There is diffuse soft tissue swelling at the plantar side of foot around the metatarsal tarsal articulation region. No drainable fluid collection. The calcaneus and the talus remain intact. CT/CT foot LT w IV con IMPRESSION: Multiple new findings of the mid foot primarily around the metatarsal tarsal joints and involving the cuneiforms, cuboid and navicular bone. Soft tissue swelling at the midfoot and no abscess. These progressive bone changes are suspicious for osteomyelitis. Clinically correlate. External Record Review External record reviewed: Inpatient record, Office record, Outpatient record, Prior outpatient labs and Prior outpatient radiology Prescription Management I considered prescription management with: Pain Medication and Antibiotic Chronic Conditions Patient?s care impacted by: Diabetes and Hypertension Critical Care Time Critical Care Time Critical Care Time: Yes Total Critical Care Time: 35 Attestation: I have personally provided critical care time exclusive of time spent on separately billable procedures. Time includes review of lab data, radiology results, discussion with consultants, and monitoring for potential decompensation. Intervention performed as documented. Discharge Plan Discharge Clinical Impression: Osteomyelitis Patient Disposition: Admitted As Inpatient
[2024-04-07 14:18] VITALS: BP 153/71; PULSE 74; RESP 18; TEMP 36.6; O2SAT 99; BMI 30.3
[2024-04-07 14:50] LABS: MANUAL DIFF FLAG NO
[2024-04-07 14:54] LABS: Basophils Absolute Auto 0.1 X10*3/uL (0.0-0.2); Basophils Percent Auto 0.4 % (0-2); Eosinophils Absolute Auto 0.2 X10*3/uL (0.0-0.4); Hematocrit 39.6 % (42.0-52.0); Hemoglobin 12.9 g/dl (14.0-18.0); Imm Gran Abs Auto 0.05 X10*3/uL (0.00-0.03); Imm Gran Pct Auto 0.4 % (0.0-0.4); Lymphocytes Absolute Auto 2.6 X10*3/uL (1.2-4.9); Lymphocytes Percent Auto 22.1 % (20-40); Mean Corpuscular HGB Conc 32.6 g/dl (31.0-36.0); Mean Corpuscular Hemoglobin 27.5 pg (27.0-33.0); Mean Corpuscular Volume 84.4 fL (80.0-98.0); Mean Platelet Volume 10.1 fL (9.4-12.4); Monocytes Absolute Auto 0.8 X10*3/uL (0.1-1.2); Monocytes Percent Auto 7.3 % (2-11); Neutrophils Absolute Auto 7.8 x10*3/uL (2.0-8.3); Neutrophils Percent Auto 67.8 % (45-73); Platelet Count 226 X10*3/uL (160-400); Red Blood Count 4.69 X10*6/uL (4.60-5.80); Red Cell Distribution Width 14.6 % (11.0-16.0); White Blood Count 11.6 X10*3/uL (4.8-10.8)
[2024-04-07 15:06] LABS: Alanine Aminotransferase 8 U/L (0-40); Albumin Level 4.1 g/dL (3.5-5.0); Alkaline Phosphatase 74 U/L (39-117); Anion Gap 14 (12-20); Aspartate Amino Transferase 7 U/L (5-37); Bilirubin Total 0.5 mg/dL (0.0-1.0); Blood Urea Nitrogen 15 mg/dL (9-16); Calcium 10.4 mg/dL (8.4-10.2); Carbon Dioxide 28 mmol/L (22-29); Chloride 103 mmol/L (96-108); Creatinine Clr Calc Pharmacy 89.5; Estimated Glomerular Filt Rate > 60; Glucose Random 236 mg/dL (60-115); Lipase 6 U/L (8-78); Magnesium 1.8 mg/dL (1.6-2.6); Potassium 4.7 mmol/L (3.3-5.1); Sodium 140 mmol/L (135-145); Total Protein 8.8 g/dL (6.5-8.0)
[2024-04-07 18:12] VITALS: BP 157/70; PULSE 71; RESP 18; TEMP 36.7; O2SAT 97
[2024-04-07] MEDS: iohexoL 350 MG/ML 100 ML INFUS..BTL 85 ML IV (19:57)
[2024-04-07 22:18] VITALS: BP 135/81; PULSE 62; O2SAT 98
[2024-04-08 00:21] LABS: C Reactive Protein 2.69 mg/dL (< or = 0.50)
[2024-04-08] MEDS: Piperacillin Sodium/Tazobactam 3.375 GM in 0.9 % Sodium Chloride 50 ML IV (00:30)
--- NOTE | 2024-04-08 01:02 | P.HPHOSP_ITS ---
History of Present Illness Date of Service: 04/08/24 Chief Complaint: Foot swelling This is a 58-year-old male with pertinent history of uncontrolled type 2 diabetes mellitus, hypertension, hyperlipidemia who presents to the emergency department for evaluation of left foot swelling and pain. Of note, patient was recently admitted on 02/14/24 with osteomyelitis of left foot and discharged on 02/17/2024 with 6 weeks of IV antibiotics. Patient completed IV ertapenem and IV daptomycin about 8 days prior to presentation. He states he has been having worsening swelling and pain of the left foot. No discharge from the foot. No fever, chills, chest discomfort, palpitations, shortness of breath, nausea, vomiting, abdominal pain, changes in urinary or bowel habits. In the emergency department, CT with progressive bone changes since previous CT concerning for osteomyelitis. Review of Systems 2 Constitutional: Constitutional: Reports no additional constitutional complaints Cardiovascular: Cardiovascular: Reports no additional cardiovascular complaints Respiratory: Respiratory: Reports no additional respiratory complaints Gastrointestinal: Gastrointestinal: Reports no additional gastrointestinal complaints Genitourinary: Genitourinary: Reports no additional male genitourinary complaints Musculoskeletal: Musculoskeletal: Reports arthralgias and Reports joint swelling [facility] Medical History Uncontrolled type 2 diabetes mellitus with hyperglycemia Charcot's joint of foot due to diabetes Swelling of left foot Osteomyelitis of left foot Obesity Type 2 diabetes mellitus with diabetic polyneuropathy Hyperlipidemia LDL goal <100 Essential hypertension Diabetes mellitus with hyperglycemia Family History Father No problems noted. Mother No problems noted. Surgical History Hx of colonoscopy No history of previous surgery Social History Household Members: Family Household Members Other:: 1 Housing: House Alcohol intake: never Patient Tobacco Use Status: Never used Tobacco Smoked in Last 30 Days: No e-Cigarette/Vaping Use: Never Used Second Hand Smoke Exposure: No Use of substances other than those prescribed or required for medical reasons: No Advance Directives: No Do you have a plan to hurt others: No Plan service: No Current occupational status: unemployed Cognitive needs: No Hearing needs: No Vision needs: Yes (glasses) Meds Allergies Allergy/AdvReac Type Severity Reaction Status Date / Time liraglutide AdvReac Intermediate diarrhea Verified 04/07/24 14:22 Active Medications: Current Medications Vancomycin HCl (Vancomycin/Ns) 2,000 mg in 500 mls @ 250 mls/hr IV ONCE ONE Stop: 04/08/24 02:00 Pharmacy Consult (Consult Rx Vancomycin Dosing) 1 each MISCELLANE DAILY PRN PRN Reason: Consult order Home Medications ?Medication ?Instructions ?Recorded ?Confirmed ?Last Taken ?Type cholecalciferol (vitamin D3) 125 125 mcg PO DAILY 02/14/24 03/23/24 Unknown History mcg (5,000 unit) tablet (Vitamin D3) Physical Exam 2 Vital Signs and Narrative: Vital Signs: Last Vital Signs Temp 98.0 F 04/07/24 18:12 Pulse 62 04/07/24 22:18 Resp 18 04/07/24 18:12 BP 135/81 04/07/24 22:18 Pulse Ox 98 04/07/24 22:18 O2 Del Method Room Air 04/07/24 22:18 BMI result Body Mass Index 30.3 Middle-aged male lying in bed in no distress Neck supple, no JVD Regular rate and rhythm, S1-S2 heard Regular breath sounds bilaterally, no wheezing or crackles appreciated Abdomen soft nontender, no guarding, no rigidity Patient is awake, alert and oriented to self, place, time and person ; no focal motor deficit Psych: Normal mood Left foot with swelling and tenderness present Results Labs 04/07/24 14:40 04/07/24 14:40 Labs: Laboratory Results - last 24 hr 04/07/24 04/08/24 14:40 00:36 MCV 84.4 MCH 27.5 MCHC 32.6 RDW 14.6 Plt Count 226 D MPV 10.1 Immature Gran % (Auto) 0.4 Neut % (Auto) 67.8 Lymph % (Auto) 22.1 [place] % (Auto) 7.3 Eos % (Auto) 2.0 Baso % (Auto) 0.4 Lymph # (Auto) 2.6 [place] # (Auto) 0.8 Eos # (Auto) 0.2 Baso # (Auto) 0.1 Abs Immat Gran (auto) 0.05 H Absolute Neuts (auto) 7.8 Absolute Nucleated RBC 0.000 Nucleated RBC % (auto) 0.0 Anion Gap 14 Estim Creat Clear Calc 89.5 Estimated GFR > 60 Random Glucose 236 H Calcium 10.4 H D Magnesium 1.8 Total Bilirubin 0.5 AST 7 ALT 8 Alkaline Phosphatase 74 C-Reactive Protein 2.69 H Total Protein 8.8 H Albumin 4.1 Lipase 6 L Hold Red Top See Note Imaging Radiologist's Impressions: Impressions Foot CT 04/07/24 19:57 IMPRESSION: Multiple new findings of the mid foot primarily around the metatarsal tarsal joints and involving the cuneiforms, cuboid and navicular bone. Soft tissue swelling at the midfoot and no abscess. These progressive bone changes are suspicious for osteomyelitis. Clinically correlate. Assessment and Plan (1) Swelling of left foot: Status: Acute Plan This is a 58-year-old male with pertinent history of uncontrolled type 2 diabetes mellitus, hypertension, hyperlipidemia who presents to the emergency department for evaluation of left foot swelling and pain. #. Left foot pain and swelling: Imaging with multiple bone changes, new since previous study, concerning for osteomyelitis. Will admit patient with empiric IV antibiotics and consult Infectious Disease. Other differential is charcotl joint. Patient has multiple bone fractures, consulting Orthopedic surgery #. Uncontrolled diabetes mellitus with hyperglycemia: Initiating basal plus insulin regimen #. Hypertension: Continue home antihypertensives Med rec pending DVT prophylaxis: Lovenox Full code Admit as inpatient and will require two night minimum hospital stay for IV antibiotics (as above), which is not possible in a lesser acute setting. Quality Stroke Does the patient have a stroke diagnosis?: No VTE Prior VTE?: No VTE Risk Level:: Medical - moderate - high VTE Device Contraindication: Treatment Not Indicated VTE Drug Contraindication: N/A - Med Ordered
[2024-04-08] MEDS: vancomycin/NS 2,000 MG/500 ML PLAST..BAG 250 MG IV (01:10)
[2024-04-08 01:14] LABS: Erythrocyte Sedimentation Rate 83 MM/HR (0-15)
[2024-04-08 01:49] VITALS: BP 115/67; PULSE 67; RESP 16; TEMP 36.7; O2SAT 96
[2024-04-08 03:23] LABS: Glucose, Whole Blood 119 mg/dL (60-115)
[2024-04-08] MEDS: Insulin Glargine,Hum.rec.anlog 100 UNIT/ML 10 ML VIAL 18 UNIT SUBCUT ×2 (03:40→21:53)
[2024-04-08] MEDS: Ertapenem Sodium 1 GM in 0.9 % Sodium Chloride 50 ML IV (03:41)
--- NOTE | 2024-04-08 03:46 | PC.NURSE ---
This RN assumed care of patient at 03:00 am. Patient is alert and oriented x3, VSS. Patient denies any pain at present. Patient mediated per MAR. Skin is intact. Left foot/plantar edema remains unchanged. Patient ambulates with a slow, but steady gait. Plan of care ongoing.
[2024-04-08 06:07] LABS: MANUAL DIFF FLAG NO
[2024-04-08 06:16] LABS: Basophils Percent Auto 0.3 % (0-2); Eosinophils Absolute Auto 0.1 X10*3/uL (0.0-0.4); Eosinophils Percent Auto 1.5 % (0-4); Hematocrit 35.4 % (42.0-52.0); Hemoglobin 11.6 g/dl (14.0-18.0); Imm Gran Abs Auto 0.05 X10*3/uL (0.00-0.03); Imm Gran Pct Auto 0.5 % (0.0-0.4); Lymphocytes Absolute Auto 1.8 X10*3/uL (1.2-4.9); Lymphocytes Percent Auto 19.2 % (20-40); Mean Corpuscular HGB Conc 32.8 g/dl (31.0-36.0); Mean Corpuscular Hemoglobin 27.6 pg (27.0-33.0); Mean Corpuscular Volume 84.1 fL (80.0-98.0); Mean Platelet Volume 10.3 fL (9.4-12.4); Monocytes Absolute Auto 0.6 X10*3/uL (0.1-1.2); Monocytes Percent Auto 6.8 % (2-11); Neutrophils Absolute Auto 6.7 x10*3/uL (2.0-8.3); Neutrophils Percent Auto 71.7 % (45-73); Platelet Count 180 X10*3/uL (160-400); Red Blood Count 4.21 X10*6/uL (4.60-5.80); Red Cell Distribution Width 14.6 % (11.0-16.0); White Blood Count 9.3 X10*3/uL (4.8-10.8)
[2024-04-08 06:27] LABS: Anion Gap 12 (12-20); Blood Urea Nitrogen 13 mg/dL (9-16); Calcium 9.3 mg/dL (8.4-10.2); Carbon Dioxide 27 mmol/L (22-29); Chloride 104 mmol/L (96-108); Creatinine Clr Calc Pharmacy 96.8; Estimated Glomerular Filt Rate > 60; Glucose Random 212 mg/dL (60-115); Potassium 4.2 mmol/L (3.3-5.1); Sodium 139 mmol/L (135-145)
[2024-04-08 07:21] LABS: Glucose, Whole Blood 194 mg/dL (60-115)
[2024-04-08] MEDS: Insulin Lispro 100 UNIT/ML 3 ML VIAL SUBCUT ×4 (07:41→21:52)
[2024-04-08] MEDS: 0.9 % Sodium Chloride Flush 3 ML SYRINGE IVFLUSH ×2 (07:41→14:23)
--- NOTE | 2024-04-08 08:45 | PM.CNOR ---
History of Present Illness HPI Consult date: 04/22/24 Chief complaint: Foot Swelling Narrative: Patient was previously admitted to the hospital for celluliitis. He was dc on po abx . He states he completed the abx and c/o increased pain and swelling of the foot. He states he did see gen surgery after his recent admission but there was no need for surgical intervention. Review of Systems Review of Systems: Yes all other systems are reviewed and are negative PMFSH Past Medical History Medical History Uncontrolled type 2 diabetes mellitus with hyperglycemia Charcot's joint of foot due to diabetes Swelling of left foot Osteomyelitis of left foot Obesity Type 2 diabetes mellitus with diabetic polyneuropathy Hyperlipidemia LDL goal <100 Essential hypertension Diabetes mellitus with hyperglycemia Family History Family History Father No problems noted. Mother No problems noted. Surgical History Surgical History Hx of colonoscopy No history of previous surgery Social History Social History Household Members: Family Household Members Other:: 1 Housing: House Alcohol intake: never Patient Tobacco Use Status: Never used Tobacco e-Cigarette/Vaping Use: Never Used Second Hand Smoke Exposure: No service: No Current occupational status: unemployed Cognitive needs: No Hearing needs: No Vision needs: Yes (glasses) Meds Allergies Allergy/AdvReac Type Severity Reaction Status Date / Time liraglutide AdvReac Intermediate diarrhea Verified 04/07/24 14:22 Active Medications: Current Medications Acetaminophen (Acetaminophen 325 Mg Tablet) 650 mg PO Q6H PRN PRN Reason: Pain, Mild (Pain Scale 1-3) Enoxaparin Sodium (Enoxaparin Sodium 40 Mg/0.4 Ml Syringe) 40 mg SUBCUT BEDTIME [facility] Last Admin: 04/08/24 01:10 Dose: Not Given Glucose (Glucose Gel 15 Gm Gel..Gram.) 15 gm PO Q15M PRN; Protocol PRN Reason: per Hypoglycemia Standing Ord. Daptomycin 950 mg/ Sodium (Chloride) 69 mls @ 138 mls/hr IV Q24H [facility] Ertapenem 1 gm/ Sodium (Chloride) 50 mls @ 100 mls/hr IV DAILY [facility] Last Infusion: 04/08/24 04:12 Dose: Infused Dextrose (D10) 250 mls @ 750 mls/hr IV Q15M PRN; Protocol PRN Reason: per Hypoglycemia Standing Ord. Insulin Glargine (Insulin Glargine,Hum.Rec.Anlog 100 Unit/Ml 10 Ml Vial) 18 unit SUBCUT BEDTIME [facility] Last Admin: 04/08/24 03:40 Dose: 18 unit Insulin Human Lispro (Insulin Lispro 100 Unit/Ml 3 Ml Vial) 0 unit SUBCUT QIDACHS [facility]; Protocol Last Admin: 04/08/24 07:41 Dose: 2 unit Melatonin (Melatonin 3 Mg Tablet) 6 mg PO BEDTIME PRN PRN Reason: Insomnia Ondansetron HCl (Ondansetron Hcl 4 Mg/2 Ml Vial) 4 mg IVPUSH Q8H PRN PRN Reason: Nausea and Vomiting Sodium Chloride (0.9 % Sodium Chloride Flush 3 Ml Syringe) 3 ml IVFLUSH QSHIFT [facility] Last Admin: 04/08/24 07:41 Dose: 3 ml Home Medications ?Medication ?Instructions ?Recorded ?Confirmed ?Last Taken ?Type cholecalciferol (vitamin D3) 125 125 mcg PO DAILY 02/14/24 04/08/24 04/07/24 History mcg (5,000 unit) tablet (Vitamin D3) Physical Exam Vital Signs: Vital Signs: Last Vital Signs Temp 98.0 F 04/08/24 01:49 Pulse 67 04/08/24 01:49 Resp 16 04/08/24 01:49 BP 115/67 04/08/24 01:49 Pulse Ox 96 04/08/24 01:49 O2 Del Method Room Air 04/08/24 01:49 BMI result Body Mass Index 30.3 Extrem: Other: Left foot deformity noted (consistent with Charcot joint) erythema and mild discomfort. No open wounds or abscess formation, nvi. Results Labs 04/08/24 05:37 04/08/24 05:37 Labs: Abnormal lab results 04/07/24 04/08/24 04/08/24 Range/Units 14:40 00:36 03:19 WBC 11.6 H (4.8-10.8) X10*3/uL RBC (4.60-5.80) X10*6/uL Hgb 12.9 L (14.0-18.0) g/dl Hct 39.6 L (42.0-52.0) % Immature Gran % (Auto) (0.0-0.4) % Lymph % (Auto) (20-40) % Abs Immat Gran (auto) 0.05 H (0.00-0.03) X10*3/uL ESR 83 H (0-15) MM/HR POC Glucose 119 H (60-115) mg/dL Random Glucose 236 H (60-115) mg/dL Calcium 10.4 H D (8.4-10.2) mg/dL C-Reactive Protein 2.69 H (< or = 0.50) mg/dL Total Protein 8.8 H (6.5-8.0) g/dL Lipase 6 L (8-78) U/L 04/08/24 04/08/24 Range/Units 05:37 07:17 WBC (4.8-10.8) X10*3/uL RBC 4.21 L (4.60-5.80) X10*6/uL Hgb 11.6 L (14.0-18.0) g/dl Hct 35.4 L (42.0-52.0) % Immature Gran % (Auto) 0.5 H (0.0-0.4) % Lymph % (Auto) 19.2 L (20-40) % Abs Immat Gran (auto) 0.05 H (0.00-0.03) X10*3/uL ESR (0-15) MM/HR POC Glucose 194 H (60-115) mg/dL Random Glucose 212 H (60-115) mg/dL Calcium (8.4-10.2) mg/dL C-Reactive Protein (< or = 0.50) mg/dL Total Protein (6.5-8.0) g/dL Lipase (8-78) U/L H & H 04/07/24 04/08/24 Range/Units 14:40 05:37 Hgb 12.9 L 11.6 L (14.0-18.0) g/dl Hct 39.6 L 35.4 L (42.0-52.0) % All other labs normal. Assessment and Plan (1) Cellulitis of left foot: Status: Resolved (2) Closed navicular fracture of left foot: Status: Resolved Plan Patient is known to me from previous admission -this appears to be charcot foot given uncontrolled DM II -typically non surgical treamtent, would recommend post op shoe, NWB -continue IV abx for cellulitis-patient states he is improving. Procedures Date of Service Date of Service: 04/22/24
--- NOTE | 2024-04-08 09:21 | PHA.MEDREC ---
Pharmacy Consult ? Medication Reconciliation Pharmacy has completed the medication reconciliation. Patient got Empagliflozin 10mg prescribed and he states he has yet to take it but has it at home to start.
[2024-04-08] MEDS: DAPTOmycin 950 MG in 0.9 % Sodium Chloride 50 ML 138 MG IV (09:57)
--- NOTE | 2024-04-08 10:26 | P.PNIM_ITS ---
Subjective Subjective Date of Service: 04/08/24 Interval History: left foot swelling Physical Exam 2 Vital Signs: Vital Signs: Last Vital Signs Temp 98.0 F 04/08/24 01:49 Pulse 67 04/08/24 01:49 Resp 16 04/08/24 01:49 BP 115/67 04/08/24 01:49 Pulse Ox 96 04/08/24 01:49 O2 Del Method Room Air 04/08/24 01:49 BMI result Body Mass Index 30.3 General: AO X 3, no acute distress Resp: CTA bilateral, no accessory muscles used CVS: S1,S2,RRR GI: soft, non tender, non distended Neuro: motor grossly intact, alert Psych: appropriate affect, appropriate insight left foot swollen no erythema, non tender Objective Data Active Medications Acetaminophen (Acetaminophen 325 Mg Tablet) 650 mg PO Q6H PRN PRN Reason: Pain, Mild (Pain Scale 1-3) Atenolol (Atenolol 50 Mg Tablet) 50 mg PO DAILY [facility]; Protocol Empagliflozin (Empagliflozin 10 Mg Tablet) 10 mg PO DAILY [facility] Enoxaparin Sodium (Enoxaparin Sodium 40 Mg/0.4 Ml Syringe) 40 mg SUBCUT BEDTIME [facility] Last Admin: 04/08/24 01:10 Dose: Not Given Documented By: MACY Non-Admin Reason: Patient Refused Glucose (Glucose Gel 15 Gm Gel..Gram.) 15 gm PO Q15M PRN; Protocol PRN Reason: per Hypoglycemia Standing Ord. Daptomycin 950 mg/ Sodium (Chloride) 69 mls @ 138 mls/hr IV Q24H [facility] Last Admin: 04/08/24 09:57 Dose: 138 mls/hr Documented By: JEMAL Ertapenem 1 gm/ Sodium (Chloride) 50 mls @ 100 mls/hr IV DAILY [facility] Last Infusion: 04/08/24 04:12 Dose: Infused Documented By: KRISTOPHER Dextrose (D10) 250 mls @ 750 mls/hr IV Q15M PRN; Protocol PRN Reason: per Hypoglycemia Standing Ord. Insulin Glargine (Insulin Glargine,Hum.Rec.Anlog 100 Unit/Ml 10 Ml Vial) 18 unit SUBCUT BEDTIME [facility] Last Admin: 04/08/24 03:40 Dose: 18 unit Documented By: KRISTOPHER Insulin Human Lispro (Insulin Lispro 100 Unit/Ml 3 Ml Vial) 0 unit SUBCUT QIDACHS [facility]; Protocol Last Admin: 04/08/24 07:41 Dose: 2 unit Documented By: JEMAL Melatonin (Melatonin 3 Mg Tablet) 6 mg PO BEDTIME PRN PRN Reason: Insomnia Ondansetron HCl (Ondansetron Hcl 4 Mg/2 Ml Vial) 4 mg IVPUSH Q8H PRN PRN Reason: Nausea and Vomiting Sodium Chloride (0.9 % Sodium Chloride Flush 3 Ml Syringe) 3 ml IVFLUSH QSHIFT [facility] Last Admin: 04/08/24 07:41 Dose: 3 ml Documented By: JEMAL Vitamin D (Cholecalciferol (Vitamin D3) 25 Mcg Tablet) 125 mcg PO DAILY [facility] Labs 04/08/24 05:37 04/08/24 05:37 Labs: Laboratory Results - last 24 hr 04/07/24 04/08/24 04/08/24 14:40 00:36 03:19 MCV 84.4 MCH 27.5 MCHC 32.6 RDW 14.6 Plt Count 226 D MPV 10.1 Immature Gran % (Auto) 0.4 Neut % (Auto) 67.8 Lymph % (Auto) 22.1 [place] % (Auto) 7.3 Eos % (Auto) 2.0 Baso % (Auto) 0.4 Lymph # (Auto) 2.6 [place] # (Auto) 0.8 Eos # (Auto) 0.2 Baso # (Auto) 0.1 Abs Immat Gran (auto) 0.05 H Absolute Neuts (auto) 7.8 Absolute Nucleated RBC 0.000 Nucleated RBC % (auto) 0.0 ESR 83 H Anion Gap 14 Estim Creat Clear Calc 89.5 Estimated GFR > 60 POC Glucose 119 H Random Glucose 236 H Calcium 10.4 H D Magnesium 1.8 Total Bilirubin 0.5 AST 7 ALT 8 Alkaline Phosphatase 74 C-Reactive Protein 2.69 H Total Protein 8.8 H Albumin 4.1 Lipase 6 L Hold Red Top See Note 04/08/24 04/08/24 05:37 07:17 MCV 84.1 MCH 27.6 MCHC 32.8 RDW 14.6 Plt Count 180 MPV 10.3 Immature Gran % (Auto) 0.5 H Neut % (Auto) 71.7 Lymph % (Auto) 19.2 L [place] % (Auto) 6.8 Eos % (Auto) 1.5 Baso % (Auto) 0.3 Lymph # (Auto) 1.8 [place] # (Auto) 0.6 Eos # (Auto) 0.1 Baso # (Auto) 0.0 Abs Immat Gran (auto) 0.05 H Absolute Neuts (auto) 6.7 Absolute Nucleated RBC 0.000 Nucleated RBC % (auto) 0.0 ESR Anion Gap 12 Estim Creat Clear Calc 96.8 Estimated GFR > 60 POC Glucose 194 H Random Glucose 212 H Calcium 9.3 D Magnesium Total Bilirubin AST ALT Alkaline Phosphatase C-Reactive Protein Total Protein Albumin Lipase Hold Red Top Assessment and Plan (1) Swelling of left foot: Status: Acute Plan 58M PMH DM, left foot OM, htn, hld presented with left foot swelling Left foot pain and swelling due to recurrent osteomyelitis and patient with Charcot joint due to diabetes Daptomycin and ertapenem, follow-up ID and surgery Check arterial duplex Diabetes with hyperglycemia Basal bolus insulin Hypertension Atenolol DVT prophylaxis with Lovenox Full Code reason for continued hospitalization: iv abx for om Quality Stroke Does the patient have a stroke diagnosis?: No VTE Prior VTE?: No VTE Risk Level:: Medical - moderate - high VTE Device Contraindication: Treatment Not Indicated VTE Drug Contraindication: N/A - Med Ordered
[2024-04-08] MEDS: atenoloL 50 MG TABLET PO (10:36)
[2024-04-08] MEDS: Cholecalciferol (Vitamin D3) 25 MCG TABLET 125 MCG PO (10:36)
[2024-04-08] MEDS: Empagliflozin 10 MG TABLET PO (10:36)
[2024-04-08 11:19] VITALS: BP 143/77; PULSE 65; RESP 14; TEMP 37.4; O2SAT 95
[2024-04-08 12:04] LABS: Glucose, Whole Blood 158 mg/dL (60-115)
--- NOTE | 2024-04-08 12:33 | PM.CNGS ---
History of Present Illness Consult details Consult date: 04/08/24 Narrative: Patient was very pleasant 58-year-old male with a plethora of medical problems who sustained blunt trauma to his left foot/ankle and early January. He subsequently developed a Charcot joint and osteomyelitis requiring PICC line placement and 6 weeks of IV antibiotics. He now presents here with left foot discomfort and swelling. Chart was reviewed and patient evaluated. Patient has been seen by ID as well as by Orthopedic. Patient has CT scan of his foot/ankle yesterday as well as a Doppler ultrasound study earlier today which is not read yet. The former demonstrates metatarsal bony changes consistent with osteomyelitis. [facility], [facility] Past Medical History Medical History Uncontrolled type 2 diabetes mellitus with hyperglycemia Charcot's joint of foot due to diabetes Swelling of left foot Osteomyelitis of left foot Obesity Type 2 diabetes mellitus with diabetic polyneuropathy Hyperlipidemia LDL goal <100 Essential hypertension Diabetes mellitus with hyperglycemia Family History Family History Father No problems noted. Mother No problems noted. Surgical History Surgical History Hx of colonoscopy No history of previous surgery Social History Social History Household Members: Family Household Members Other:: 1 Housing: House Alcohol intake: never Patient Tobacco Use Status: Never used Tobacco Smoked in Last 30 Days: No e-Cigarette/Vaping Use: Never Used Second Hand Smoke Exposure: No Use of substances other than those prescribed or required for medical reasons: No Advance Directives: No Do you have a plan to hurt others: No Plan Nutrition Risks: No Nutritional Risk service: No Current occupational status: unemployed Cognitive needs: No Hearing needs: No Vision needs: Yes (glasses) Meds Allergies Allergy/AdvReac Type Severity Reaction Status Date / Time liraglutide AdvReac Intermediate diarrhea Verified 04/07/24 14:22 Active Medications: Current Medications Acetaminophen (Acetaminophen 325 Mg Tablet) 650 mg PO Q6H PRN PRN Reason: Pain, Mild (Pain Scale 1-3) Atenolol (Atenolol 50 Mg Tablet) 50 mg PO DAILY [facility]; Protocol Last Admin: 04/08/24 10:36 Dose: 50 mg Empagliflozin (Empagliflozin 10 Mg Tablet) 10 mg PO DAILY [facility] Last Admin: 04/08/24 10:36 Dose: 10 mg Enoxaparin Sodium (Enoxaparin Sodium 40 Mg/0.4 Ml Syringe) 40 mg SUBCUT BEDTIME [facility] Last Admin: 04/08/24 01:10 Dose: Not Given Glucose (Glucose Gel 15 Gm Gel..Gram.) 15 gm PO Q15M PRN; Protocol PRN Reason: per Hypoglycemia Standing Ord. Daptomycin 950 mg/ Sodium (Chloride) 69 mls @ 138 mls/hr IV Q24H [facility] Last Infusion: 04/08/24 10:41 Dose: Infused Ertapenem 1 gm/ Sodium (Chloride) 50 mls @ 100 mls/hr IV DAILY [facility] Last Infusion: 04/08/24 04:12 Dose: Infused Dextrose (D10) 250 mls @ 750 mls/hr IV Q15M PRN; Protocol PRN Reason: per Hypoglycemia Standing Ord. Insulin Glargine (Insulin Glargine,Hum.Rec.Anlog 100 Unit/Ml 10 Ml Vial) 18 unit SUBCUT BEDTIME [facility] Last Admin: 04/08/24 03:40 Dose: 18 unit Insulin Human Lispro (Insulin Lispro 100 Unit/Ml 3 Ml Vial) 0 unit SUBCUT QIDACHS [facility]; Protocol Last Admin: 04/08/24 07:41 Dose: 2 unit Melatonin (Melatonin 3 Mg Tablet) 6 mg PO BEDTIME PRN PRN Reason: Insomnia Ondansetron HCl (Ondansetron Hcl 4 Mg/2 Ml Vial) 4 mg IVPUSH Q8H PRN PRN Reason: Nausea and Vomiting Sodium Chloride (0.9 % Sodium Chloride Flush 3 Ml Syringe) 3 ml IVFLUSH QSHIFT [facility] Last Admin: 04/08/24 07:41 Dose: 3 ml Vitamin D (Cholecalciferol (Vitamin D3) 25 Mcg Tablet) 125 mcg PO DAILY [facility] Last Admin: 04/08/24 10:36 Dose: 125 mcg Home Medications ?Medication ?Instructions ?Recorded ?Confirmed ?Last Taken ?Type cholecalciferol (vitamin D3) 125 125 mcg PO DAILY 02/14/24 04/08/24 04/07/24 History mcg (5,000 unit) tablet (Vitamin D3) Physical Exam Vital Signs: Vital Signs: Last Vital Signs Temp 99.4 F 04/08/24 11:19 Pulse 65 04/08/24 11:19 Resp 14 04/08/24 11:19 BP 143/77 H 04/08/24 11:19 Pulse Ox 95 04/08/24 11:19 O2 Del Method Room Air 04/08/24 11:19 BMI result Body Mass Index 30.3 Extrem: Other: Patient left lower extremity exam is most noteworthy for obvious Charcot joint with moderate edema. Difficult to palpate pulses secondary to this. The extremities grossly neurovascularly intact. No obvious cellulitic or abscess changes. Results Labs 04/08/24 05:37 04/08/24 05:37 Labs: Abnormal lab results 04/07/24 04/08/24 04/08/24 Range/Units 14:40 00:36 03:19 WBC 11.6 H (4.8-10.8) X10*3/uL RBC (4.60-5.80) X10*6/uL Hgb 12.9 L (14.0-18.0) g/dl Hct 39.6 L (42.0-52.0) % Immature Gran % (Auto) (0.0-0.4) % Lymph % (Auto) (20-40) % Abs Immat Gran (auto) 0.05 H (0.00-0.03) X10*3/uL ESR 83 H (0-15) MM/HR POC Glucose 119 H (60-115) mg/dL Random Glucose 236 H (60-115) mg/dL Calcium 10.4 H D (8.4-10.2) mg/dL C-Reactive Protein 2.69 H (< or = 0.50) mg/dL Total Protein 8.8 H (6.5-8.0) g/dL Lipase 6 L (8-78) U/L 04/08/24 04/08/24 04/08/24 Range/Units 05:37 07:17 11:50 WBC (4.8-10.8) X10*3/uL RBC 4.21 L (4.60-5.80) X10*6/uL Hgb 11.6 L (14.0-18.0) g/dl Hct 35.4 L (42.0-52.0) % Immature Gran % (Auto) 0.5 H (0.0-0.4) % Lymph % (Auto) 19.2 L (20-40) % Abs Immat Gran (auto) 0.05 H (0.00-0.03) X10*3/uL ESR (0-15) MM/HR POC Glucose 194 H 158 H (60-115) mg/dL Random Glucose 212 H (60-115) mg/dL Calcium (8.4-10.2) mg/dL C-Reactive Protein (< or = 0.50) mg/dL Total Protein (6.5-8.0) g/dL Lipase (8-78) U/L Short CBC 04/07/24 04/08/24 Range/Units 14:40 05:37 WBC 11.6 H 9.3 (4.8-10.8) X10*3/uL Hgb 12.9 L 11.6 L (14.0-18.0) g/dl Hct 39.6 L 35.4 L (42.0-52.0) % Plt Count 226 D 180 (160-400) X10*3/uL BMP 04/07/24 04/08/24 14:40 05:37 Sodium 140 139 Potassium 4.7 4.2 Chloride 103 104 Carbon Dioxide 28 27 BUN 15 13 Creatinine 1.07 0.99 Calcium 10.4 H D 9.3 D Liver Function 04/07/24 Range/Units 14:40 Total Bilirubin 0.5 (0.0-1.0) mg/dL AST 7 (5-37) U/L ALT 8 (0-40) U/L Alkaline Phosphatase 74 (39-117) U/L Albumin 4.1 (3.5-5.0) g/dL All other labs normal. Assessment and Plan (1) Swelling of left foot: Status: Acute (2) Osteomyelitis of left foot: Status: Acute Plan At present, recent orthopedic consultation was noted. CT of foot demonstrates osteomyelitis changes but no evidence of any abscess requiring drainage. Current plan is per Orthopedic recommendation. No acute general surgical issues warranted at this time. Procedures Date of Service Date of Service: 04/08/24
[2024-04-08] MEDS: methylPREDNISolone Sod Succ 125 MG/2 ML VIAL 60 MG IVPUSH (14:22)
[2024-04-08 14:36] VITALS: BP 143/77; PULSE 65; O2SAT 95
[2024-04-08 16:36] VITALS: BP 131/74; PULSE 68; RESP 18; TEMP 36.8; O2SAT 98
[2024-04-08 18:16] LABS: Glucose, Whole Blood 230 mg/dL (60-115)
[2024-04-08 20:02] VITALS: BP 131/71; PULSE 75; RESP 16; TEMP 37; O2SAT 96
[2024-04-08] MEDS: Enoxaparin Sodium 40 MG/0.4 ML SYRINGE SUBCUT (21:52)
[2024-04-08 21:59] LABS: Glucose, Whole Blood 274 mg/dL (60-115)
--- NOTE | 2024-04-08 23:57 | W.PM.IDCN ---
History of Present Illness Data of Consult Service Date: 04/08/24 Requesting physician: Laurent Land Primary Care Provider: Ha Wiggins MD [facility] Reason for consult: left foot swelling He has had left foot swelling last several months. He has no fever or chill He has seen me and received six weekI V antbiotca Review of Systems Review of Systems: Yes all other systems are reviewed and are negative [facility] Past Medical History Medical History Uncontrolled type 2 diabetes mellitus with hyperglycemia Charcot's joint of foot due to diabetes Swelling of left foot Osteomyelitis of left foot Obesity Type 2 diabetes mellitus with diabetic polyneuropathy Hyperlipidemia LDL goal <100 Essential hypertension Diabetes mellitus with hyperglycemia Family History Family History Father No problems noted. Mother No problems noted. Family history: reviewed and not pertinent Surgical History Surgical History Hx of colonoscopy No history of previous surgery Social History Social History Household Members: Family Household Members Other:: 1 Housing: House Alcohol intake: never Patient Tobacco Use Status: Never used Tobacco Smoked in Last 30 Days: No e-Cigarette/Vaping Use: Never Used Second Hand Smoke Exposure: No Use of substances other than those prescribed or required for medical reasons: No Advance Directives: No Do you have a plan to hurt others: No Plan Nutrition Risks: No Nutritional Risk service: No Current occupational status: unemployed Cognitive needs: No Hearing needs: No Vision needs: Yes (glasses) Meds Allergies Allergy/AdvReac Type Severity Reaction Status Date / Time liraglutide AdvReac Intermediate diarrhea Verified 04/07/24 14:22 Active Medications: Current Medications Acetaminophen (Acetaminophen 325 Mg Tablet) 650 mg PO Q6H PRN PRN Reason: Pain, Mild (Pain Scale 1-3) Atenolol (Atenolol 50 Mg Tablet) 50 mg PO DAILY [facility]; Protocol Last Admin: 04/08/24 10:36 Dose: 50 mg Empagliflozin (Empagliflozin 10 Mg Tablet) 10 mg PO DAILY [facility] Last Admin: 04/08/24 10:36 Dose: 10 mg Enoxaparin Sodium (Enoxaparin Sodium 40 Mg/0.4 Ml Syringe) 40 mg SUBCUT BEDTIME [facility] Last Admin: 04/08/24 21:52 Dose: 40 mg Glucose (Glucose Gel 15 Gm Gel..Gram.) 15 gm PO Q15M PRN; Protocol PRN Reason: per Hypoglycemia Standing Ord. Dextrose (D10) 250 mls @ 750 mls/hr IV Q15M PRN; Protocol PRN Reason: per Hypoglycemia Standing Ord. Insulin Glargine (Insulin Glargine,Hum.Rec.Anlog 100 Unit/Ml 10 Ml Vial) 18 unit SUBCUT BEDTIME [facility] Last Admin: 04/08/24 21:53 Dose: 18 unit Insulin Human Lispro (Insulin Lispro 100 Unit/Ml 3 Ml Vial) 0 unit SUBCUT QIDACHS [facility]; Protocol Last Admin: 04/08/24 21:52 Dose: 6 unit Melatonin (Melatonin 3 Mg Tablet) 6 mg PO BEDTIME PRN PRN Reason: Insomnia Ondansetron HCl (Ondansetron Hcl 4 Mg/2 Ml Vial) 4 mg IVPUSH Q8H PRN PRN Reason: Nausea and Vomiting Prednisone (Prednisone 20 Mg Tablet) 40 mg PO DAILY [facility] Sodium Chloride (0.9 % Sodium Chloride Flush 3 Ml Syringe) 3 ml IVFLUSH QSHIFT [facility] Last Admin: 04/08/24 14:23 Dose: 3 ml Vitamin D (Cholecalciferol (Vitamin D3) 25 Mcg Tablet) 125 mcg PO DAILY [facility] Last Admin: 04/08/24 10:36 Dose: 125 mcg Home Medications ?Medication ?Instructions ?Recorded ?Confirmed ?Last Taken ?Type cholecalciferol (vitamin D3) 125 125 mcg PO DAILY 02/14/24 04/08/24 04/07/24 History mcg (5,000 unit) tablet (Vitamin D3) Physical Exam Vital Signs: Vital Signs: Last Vital Signs Temp 98.6 F 04/08/24 20:02 Pulse 75 04/08/24 20:02 Resp 16 04/08/24 20:02 BP 131/71 04/08/24 20:02 Pulse Ox 96 04/08/24 20:02 O2 Del Method Room Air 04/08/24 20:02 BMI result Body Mass Index 30.3 Skin: Other: no cellulitsi see Results Labs 04/08/24 05:37 04/08/24 05:37 Labs: Short CBC 04/08/24 Range/Units 05:37 WBC 9.3 (4.8-10.8) X10*3/uL Hgb 11.6 L (14.0-18.0) g/dl Hct 35.4 L (42.0-52.0) % Plt Count 180 (160-400) X10*3/uL BMP 04/08/24 05:37 Sodium 139 Potassium 4.2 Chloride 104 Carbon Dioxide 27 BUN 13 Creatinine 0.99 Calcium 9.3 D Assessment and Plan (1) Swelling of left foot: Status: Acute Plan He already finish IV antibiotics for six weeks with no help at all and doesnt want more Await cultures. THis may be gout or pseudogout Try steroic per protocol Stop antibiotics
[2024-04-09 04:00] VITALS: BP 113/73; PULSE 68; RESP 16; TEMP 36.4; O2SAT 98
[2024-04-09 06:51] VITALS: BP 105/57; PULSE 65; RESP 17; TEMP 36.6; O2SAT 96
[2024-04-09 07:05] LABS: Glucose, Whole Blood 182 mg/dL (60-115)
[2024-04-09 07:55] VITALS: BP 105/57; PULSE 65
[2024-04-09] MEDS: atenoloL 50 MG TABLET PO (07:55)
[2024-04-09] MEDS: Insulin Lispro 100 UNIT/ML 3 ML VIAL SUBCUT ×4 (07:55→20:30)
[2024-04-09] MEDS: Cholecalciferol (Vitamin D3) 25 MCG TABLET 125 MCG PO (07:56)
[2024-04-09] MEDS: Empagliflozin 10 MG TABLET PO (07:56)
[2024-04-09] MEDS: predniSONE 20 MG TABLET 40 MG PO (07:56)
[2024-04-09] MEDS: 0.9 % Sodium Chloride Flush 3 ML SYRINGE IVFLUSH ×3 (07:58→20:24)
[2024-04-09 08:03] VITALS: BMI 30.1
--- NOTE | 2024-04-09 09:24 | P.PNIM_ITS ---
Subjective Subjective Date of Service: 04/09/24 Interval History: no changes Physical Exam 2 Vital Signs: Vital Signs: Last Vital Signs Temp 98 F 04/09/24 06:51 Pulse 65 04/09/24 07:55 Resp 17 04/09/24 06:51 BP 105/57 L 04/09/24 07:55 Pulse Ox 96 04/09/24 06:51 O2 Del Method Room Air 04/09/24 06:51 BMI result Body Mass Index 30.1 Skin: Other: no cellulitsi see Objective Data Active Medications Acetaminophen (Acetaminophen 325 Mg Tablet) 650 mg PO Q6H PRN PRN Reason: Pain, Mild (Pain Scale 1-3) Atenolol (Atenolol 50 Mg Tablet) 50 mg PO DAILY [facility]; Protocol Last Admin: 04/09/24 07:55 Dose: 50 mg Documented By: CLEMENTINE Empagliflozin (Empagliflozin 10 Mg Tablet) 10 mg PO DAILY [facility] Last Admin: 04/09/24 07:56 Dose: 10 mg Documented By: CLEMENTINE Enoxaparin Sodium (Enoxaparin Sodium 40 Mg/0.4 Ml Syringe) 40 mg SUBCUT BEDTIME [facility] Last Admin: 04/08/24 21:52 Dose: 40 mg Documented By: FELECIA Glucose (Glucose Gel 15 Gm Gel..Gram.) 15 gm PO Q15M PRN; Protocol PRN Reason: per Hypoglycemia Standing Ord. Dextrose (D10) 250 mls @ 750 mls/hr IV Q15M PRN; Protocol PRN Reason: per Hypoglycemia Standing Ord. Insulin Glargine (Insulin Glargine,Hum.Rec.Anlog 100 Unit/Ml 10 Ml Vial) 18 unit SUBCUT BEDTIME [facility] Last Admin: 04/08/24 21:53 Dose: 18 unit Documented By: FELECIA Insulin Human Lispro (Insulin Lispro 100 Unit/Ml 3 Ml Vial) 0 unit SUBCUT QIDACHS [facility]; Protocol Last Admin: 04/09/24 07:55 Dose: 2 unit Documented By: CLEMENTINE Melatonin (Melatonin 3 Mg Tablet) 6 mg PO BEDTIME PRN PRN Reason: Insomnia Ondansetron HCl (Ondansetron Hcl 4 Mg/2 Ml Vial) 4 mg IVPUSH Q8H PRN PRN Reason: Nausea and Vomiting Prednisone (Prednisone 20 Mg Tablet) 40 mg PO DAILY [facility] Last Admin: 04/09/24 07:56 Dose: 40 mg Documented By: CLEMENTINE Sodium Chloride (0.9 % Sodium Chloride Flush 3 Ml Syringe) 3 ml IVFLUSH QSHIFT [facility] Last Admin: 04/09/24 07:58 Dose: 3 ml Documented By: CLEMENTINE Vitamin D (Cholecalciferol (Vitamin D3) 25 Mcg Tablet) 125 mcg PO DAILY [facility] Last Admin: 04/09/24 07:56 Dose: 125 mcg Documented By: CLEMENTINE Labs 04/08/24 05:37 04/08/24 05:37 Labs: Laboratory Results - last 24 hr 04/08/24 04/08/24 04/08/24 11:50 18:09 21:51 POC Glucose 158 H 230 H 274 H 04/09/24 06:53 POC Glucose 182 H Assessment and Plan (1) Swelling of left foot: Status: Acute Plan 58M PMH DM, left foot OM, htn, hld presented with left foot swelling Left foot pain and swelling in patient with Charcot joint due to diabetes ID appreciated doubts benefit from further abx, abx dced empiric steroids for possible inflammatory crystalarthropathy arterial duplex with moderate LLE stenosis vascular eval Diabetes with hyperglycemia Basal bolus insulin Hypertension Atenolol DVT prophylaxis with Lovenox Full Code reason for continued hospitalization: continue empiric steroids and monitoring Quality Stroke Does the patient have a stroke diagnosis?: No VTE Prior VTE?: No VTE Risk Level:: Medical - moderate - high VTE Device Contraindication: Treatment Not Indicated VTE Drug Contraindication: N/A - Med Ordered
[2024-04-09 11:08] LABS: Glucose, Whole Blood 242 mg/dL (60-115)
--- NOTE | 2024-04-09 12:51 | MHC.CM.PN ---
PT REPORTS HE LIVES WITH AND CARES FOR HIS MOTHER, HIS FATHER RECENTLY PASSED HE REPORTS HE IS ACTIVE WITH [facility] BUT THOUGHT SERVICES MAY BE ENDING SOON HE IS INDEPENDENT WT CARE AND MOBILITY HCP ON FILE PCP: NATASHA BUTT DCP: HOME RESUME NA PRIVATE TRANSPORT
[2024-04-09 15:17] VITALS: BP 135/76; PULSE 62; RESP 13; TEMP 36; O2SAT 98
[2024-04-09 16:26] LABS: Glucose, Whole Blood 253 mg/dL (60-115)
[2024-04-09 19:23] VITALS: BP 125/65; PULSE 62; RESP 14; TEMP 36; O2SAT 97
[2024-04-09 20:29] LABS: Glucose, Whole Blood 220 mg/dL (60-115)
[2024-04-09] MEDS: Insulin Glargine,Hum.rec.anlog 100 UNIT/ML 10 ML VIAL 18 UNIT SUBCUT (20:31)
[2024-04-10 03:16] VITALS: BP 102/50; PULSE 60; RESP 18; TEMP 36.1; O2SAT 99
[2024-04-10 07:05] VITALS: BP 111/62; PULSE 54; RESP 17; TEMP 36.6; O2SAT 98
[2024-04-10 07:18] LABS: Glucose, Whole Blood 117 mg/dL (60-115)
--- NOTE | 2024-04-10 08:34 | P.PNIM_ITS ---
Subjective Subjective Date of Service: 04/10/24 Interval History: left foot softer after steroids Physical Exam 2 Vital Signs: Vital Signs: Last Vital Signs Temp 98 F 04/10/24 07:05 Pulse 54 04/10/24 07:05 Resp 17 04/10/24 07:05 BP 111/62 04/10/24 07:05 Pulse Ox 98 04/10/24 07:05 O2 Del Method Room Air 04/10/24 07:05 BMI result Body Mass Index 30.1 Skin: Other: no cellulitsi see Objective Data Active Medications Acetaminophen (Acetaminophen 325 Mg Tablet) 650 mg PO Q6H PRN PRN Reason: Pain, Mild (Pain Scale 1-3) Atenolol (Atenolol 50 Mg Tablet) 50 mg PO DAILY [facility]; Protocol Last Admin: 04/09/24 07:55 Dose: 50 mg Documented By: CLEMENTINE Empagliflozin (Empagliflozin 10 Mg Tablet) 10 mg PO DAILY [facility] Last Admin: 04/09/24 07:56 Dose: 10 mg Documented By: CLEMENTINE Enoxaparin Sodium (Enoxaparin Sodium 40 Mg/0.4 Ml Syringe) 40 mg SUBCUT BEDTIME [facility] Last Admin: 04/09/24 20:25 Dose: Not Given Documented By: HUMBERTO Non-Admin Reason: Patient Refused Glucose (Glucose Gel 15 Gm Gel..Gram.) 15 gm PO Q15M PRN; Protocol PRN Reason: per Hypoglycemia Standing Ord. Dextrose (D10) 250 mls @ 750 mls/hr IV Q15M PRN; Protocol PRN Reason: per Hypoglycemia Standing Ord. Insulin Glargine (Insulin Glargine,Hum.Rec.Anlog 100 Unit/Ml 10 Ml Vial) 18 unit SUBCUT BEDTIME [facility] Last Admin: 04/09/24 20:31 Dose: 18 unit Documented By: HUMBERTO Insulin Human Lispro (Insulin Lispro 100 Unit/Ml 3 Ml Vial) 0 unit SUBCUT QIDACHS [facility]; Protocol Last Admin: 04/10/24 07:31 Dose: Not Given Documented By: MARI Non-Admin Reason: No Insulin Coverage Melatonin (Melatonin 3 Mg Tablet) 6 mg PO BEDTIME PRN PRN Reason: Insomnia Ondansetron HCl (Ondansetron Hcl 4 Mg/2 Ml Vial) 4 mg IVPUSH Q8H PRN PRN Reason: Nausea and Vomiting Prednisone (Prednisone 20 Mg Tablet) 40 mg PO DAILY [facility] Last Admin: 04/09/24 07:56 Dose: 40 mg Documented By: CLEMENTINE Sodium Chloride (0.9 % Sodium Chloride Flush 3 Ml Syringe) 3 ml IVFLUSH QSHIFT [facility] Last Admin: 04/09/24 20:24 Dose: 3 ml Documented By: HUMBERTO Vitamin D (Cholecalciferol (Vitamin D3) 25 Mcg Tablet) 125 mcg PO DAILY [facility] Last Admin: 04/09/24 07:56 Dose: 125 mcg Documented By: CLEMENTINE Labs 04/08/24 05:37 04/08/24 05:37 Labs: Laboratory Results - last 24 hr 04/09/24 04/09/24 04/09/24 10:59 16:11 20:22 POC Glucose 242 H 253 H 220 H 04/10/24 07:07 POC Glucose 117 H Assessment and Plan (1) Swelling of left foot: Status: Acute Plan 58M PMH DM, left foot OM, htn, hld presented with left foot swelling Left foot pain and swelling in patient with Charcot joint due to diabetes ID appreciated doubts benefit from further abx, abx dced empiric steroids for possible inflammatory crystalarthropathy - partial response noted arterial duplex with moderate LLE stenosis vascular eval Diabetes with hyperglycemia Basal bolus insulin Hypertension Atenolol DVT prophylaxis with Lovenox Full Code reason for continued hospitalization: continue empiric steroids and monitoring, vascular eval Quality Stroke Does the patient have a stroke diagnosis?: No VTE Prior VTE?: No VTE Risk Level:: Medical - moderate - high VTE Device Contraindication: Treatment Not Indicated VTE Drug Contraindication: N/A - Med Ordered
[2024-04-10] MEDS: 0.9 % Sodium Chloride Flush 3 ML SYRINGE IVFLUSH ×3 (09:18→22:03)
[2024-04-10] MEDS: Empagliflozin 10 MG TABLET PO (09:19)
[2024-04-10] MEDS: Cholecalciferol (Vitamin D3) 25 MCG TABLET 125 MCG PO (09:19)
[2024-04-10] MEDS: predniSONE 20 MG TABLET 40 MG PO (09:19)
[2024-04-10 09:24] VITALS: PULSE 56
[2024-04-10 11:12] LABS: Glucose, Whole Blood 187 mg/dL (60-115)
[2024-04-10] MEDS: Insulin Lispro 100 UNIT/ML 3 ML VIAL SUBCUT ×4 (11:50→22:00)
[2024-04-10 15:13] VITALS: BP 124/66; PULSE 58; RESP 14; TEMP 36.4; O2SAT 99
[2024-04-10 16:30] LABS: Glucose, Whole Blood 406 mg/dL (60-115)
[2024-04-10 19:48] VITALS: BP 115/70; PULSE 58; RESP 16; TEMP 36; O2SAT 98
[2024-04-10 20:12] LABS: Glucose, Whole Blood 301 mg/dL (60-115)
[2024-04-10] MEDS: Insulin Glargine,Hum.rec.anlog 100 UNIT/ML 10 ML VIAL 18 UNIT SUBCUT (22:00)
[2024-04-11 04:00] VITALS: BP 112/66; PULSE 62; RESP 16; TEMP 36.6; O2SAT 99
[2024-04-11 07:10] VITALS: BP 142/72; PULSE 58; RESP 16; TEMP 36.1; O2SAT 96
[2024-04-11 07:36] LABS: Glucose, Whole Blood 138 mg/dL (60-115)
[2024-04-11] MEDS: Insulin Lispro 100 UNIT/ML 3 ML VIAL SUBCUT ×3 (09:15→12:16)
--- NOTE | 2024-04-11 09:15 | PM.CNGS ---
History of Present Illness Consult details Consult date: 04/11/24 Reason for consult: wound care Narrative: Very pleasant 58-year-old gentleman presents for evaluation regarding swollen left lower extremity. Was actually seen and treated for osteomyelitis. He had completed his course of antibiotics and was concerned about the swelling of his lower extremities. He now presents for evaluation regarding his left lower extremity. Review of Systems Review of Systems: Yes all other systems are reviewed and are negative Constitutional: Constitutional: Reports no additional constitutional complaints ENT: Reports Normal hearing present Cardiovascular: Cardiovascular: Denies chest pain, Denies chest pain at rest, Denies chest pain with activity and Denies pedal edema Respiratory: Respiratory: Denies cough Gastrointestinal: Gastrointestinal: Denies abdominal pain Musculoskeletal: Musculoskeletal: Denies abnormal gait, Denies muscle cramps and Denies radiating pain into limb Integumentary/Breasts: Skin/Breast: Denies skin ulcer and Denies wounds Neurologic: Reports Normal hearing present and Denies abnormal gait Psychiatric: Psychiatric: Reports no additional psychiatric complaints PMFSH Past Medical History Medical History Uncontrolled type 2 diabetes mellitus with hyperglycemia Charcot's joint of foot due to diabetes Swelling of left foot Osteomyelitis of left foot Obesity Type 2 diabetes mellitus with diabetic polyneuropathy Hyperlipidemia LDL goal <100 Essential hypertension Diabetes mellitus with hyperglycemia Family History Family History Father No problems noted. Mother No problems noted. Family history: reviewed and not pertinent Surgical History Surgical History Hx of colonoscopy No history of previous surgery Social History Social History Household Members: Family Household Members Other:: 1 Housing: House Alcohol intake: never Patient Tobacco Use Status: Never used Tobacco e-Cigarette/Vaping Use: Never Used Second Hand Smoke Exposure: No service: No Current occupational status: unemployed Cognitive needs: No Hearing needs: No Vision needs: Yes (glasses) Meds Allergies Allergy/AdvReac Type Severity Reaction Status Date / Time liraglutide AdvReac Intermediate diarrhea Verified 04/07/24 14:22 Active Medications: Current Medications Acetaminophen (Acetaminophen 325 Mg Tablet) 650 mg PO Q6H PRN PRN Reason: Pain, Mild (Pain Scale 1-3) Atenolol (Atenolol 50 Mg Tablet) 50 mg PO DAILY [facility]; Protocol Last Admin: 04/10/24 09:24 Dose: Not Given Empagliflozin (Empagliflozin 10 Mg Tablet) 10 mg PO DAILY [facility] Last Admin: 04/10/24 09:19 Dose: 10 mg Enoxaparin Sodium (Enoxaparin Sodium 40 Mg/0.4 Ml Syringe) 40 mg SUBCUT BEDTIME [facility] Last Admin: 04/10/24 22:03 Dose: Not Given Glucose (Glucose Gel 15 Gm Gel..Gram.) 15 gm PO Q15M PRN; Protocol PRN Reason: per Hypoglycemia Standing Ord. Dextrose (D10) 250 mls @ 750 mls/hr IV Q15M PRN; Protocol PRN Reason: per Hypoglycemia Standing Ord. Insulin Glargine (Insulin Glargine,Hum.Rec.Anlog 100 Unit/Ml 10 Ml Vial) 18 unit SUBCUT BEDTIME [facility] Last Admin: 04/10/24 22:00 Dose: 18 unit Insulin Human Lispro (Insulin Lispro 100 Unit/Ml 3 Ml Vial) 0 unit SUBCUT QIDACHS [facility]; Protocol Last Admin: 04/11/24 07:42 Dose: Not Given Insulin Human Lispro (Insulin Lispro 100 Unit/Ml 3 Ml Vial) 5 unit SUBCUT QIDACHS [facility] Last Admin: 04/10/24 22:00 Dose: 5 unit Melatonin (Melatonin 3 Mg Tablet) 6 mg PO BEDTIME PRN PRN Reason: Insomnia Ondansetron HCl (Ondansetron Hcl 4 Mg/2 Ml Vial) 4 mg IVPUSH Q8H PRN PRN Reason: Nausea and Vomiting Prednisone (Prednisone 20 Mg Tablet) 40 mg PO DAILY [facility] Last Admin: 04/10/24 09:19 Dose: 40 mg Sodium Chloride (0.9 % Sodium Chloride Flush 3 Ml Syringe) [facility] Last Admin: 04/10/24 22:03 Dose: 3 ml Vitamin D (Cholecalciferol (Vitamin D3) 25 Mcg Tablet) 125 mcg PO DAILY [facility] Last Admin: 04/10/24 09:19 Dose: 125 mcg Home Medications ?Medication ?Instructions ?Recorded ?Confirmed ?Last Taken ?Type cholecalciferol (vitamin D3) 125 125 mcg PO DAILY 02/14/24 04/08/24 04/07/24 History mcg (5,000 unit) tablet (Vitamin D3) Physical Exam Vital Signs: Vital Signs: Last Vital Signs Temp 97.0 F 04/11/24 07:10 Pulse 58 04/11/24 07:10 Resp 16 04/11/24 07:10 BP 142/72 H 04/11/24 07:10 Pulse Ox 96 04/11/24 07:10 O2 Del Method Room Air 04/11/24 07:10 BMI result Body Mass Index 30.1 Const: General: cooperative, healthy appearing and comfortable Orientation/consciousness: oriented to person, oriented to place and oriented to time HEENT: Head: Yes normal to inspection Neck: Neck: Yes normal visual inspection Carotids: no bruits Chest: Chest palpation & inspection: normal inspection of the chest Resp: Effort & Inspection: normal respiratory effort and able to speak in complete sentences Auscultation: clear to auscultation bilaterally, no crackles, no rales, no rhonchi and no wheezes Cardio: Other: Left lower extremity palpable DP pulse Rate: regular rate Rhythm: regular rhythm Heart sounds: S1 normal heart sound present and S2 normal heart sound present Bruits: no carotid bruits Peripheral pulses: Peripheral pulses 2+ throughout GI: Inspection: Yes normal to inspection Skin: Wounds: no wounds Hair: normal Neuro: General: oriented to person, oriented to place and oriented to time Cranial nerves: Yes CN's II-XII intact bilaterally and Yes Normal hearing present Cognition (Neuro): normal cognition Motor exam (neuro): 5/5 motor strength present throughout Extrem: Other: venous exam: No significant superficial varicosities or spider telangiectasias, minimal edema General: No clubbing, No cyanosis and No edema Psych: Appearance: grossly normal Mental Status: mental status grossly normal Speech and movement: Normal speech and movement present Results Labs 04/08/24 05:37 04/08/24 05:37 Labs: Abnormal lab results 04/10/24 04/10/24 04/10/24 Range/Units 11:06 16:23 20:05 POC Glucose 187 H 406 H* 301 H (60-115) mg/dL 04/11/24 Range/Units 07:13 POC Glucose 138 H (60-115) mg/dL All other labs normal. Assessment and Plan (1) Swelling of left foot: Status: Acute Plan In short this is a 58-year-old diabetic gentleman with a swollen left lower extremity. He does have a prior history of osteomyelitis. I do believe that that foot does have an element of Charcot foot. I did review his arterial testing. That being said he does have a palpable dorsalis pedis pulse. I do not believe his arterial flow is in question. There may be an element of venous insufficiency which can be worked up as an outpatient. I did inform him that the venous insufficiency will not fix his foot issues. This is more related to his Charcot foot and diabetes. We did discuss appropriate foot care in addition to obtaining appropriate diabetic shoes and follow-up with a quality audit representative. Can see us as an outpatient as well. Thank you for allowing us to assist in his care. If there are any questions or concerns please do not hesitate to contact us. Procedures Date of Service Date of Service: 04/11/24
[2024-04-11 09:16] VITALS: BP 142/72; PULSE 80
[2024-04-11] MEDS: Cholecalciferol (Vitamin D3) 25 MCG TABLET 125 MCG PO (09:16)
[2024-04-11] MEDS: atenoloL 50 MG TABLET PO (09:16)
[2024-04-11] MEDS: predniSONE 20 MG TABLET 40 MG PO (09:16)
[2024-04-11] MEDS: 0.9 % Sodium Chloride Flush 3 ML SYRINGE IVFLUSH (09:17)
[2024-04-11] MEDS: Empagliflozin 10 MG TABLET PO (09:17)
--- NOTE | 2024-04-11 10:13 | PM.DS ---
DS: Providers Provider Date of Service: 04/11/24 Date of admission: 04/08/24 00:59 Primary care physician: Ha Wiggins MD Consults: 04/08/24 01:01 Consult to Infectious Diseases Routine Consulting Provider: Monika Santiago Reason for consultation: osteomyelitis 04/08/24 08:47 Consult to General Surgery [place]ine [place]ing [place] [facility] Reason for consultation: charcot foot, recurrent OM 04/09/24 08:02 Consult to Vascular Surgery Routine Consulting Provider[place] [facility] Reason for consultation: pvd DS: Diagnosis Discharge Diagnosis (1) Swelling of left foot: Status: Acute DS: Summary Hospital Course Hospital Course: from initial hpi: 58-year-old male with pertinent history of uncontrolled type 2 diabetes mellitus, hypertension, hyperlipidemia who presents to the emergency department for evaluation of left foot swelling and pain. Of note, patient was recently admitted on 02/14/24 with osteomyelitis of left foot and discharged on 02/17/2024 with 6 weeks of IV antibiotics. Patient completed IV ertapenem and IV daptomycin about 8 days prior to presentation. He states he has been having worsening swelling and pain of the left foot. No discharge from the foot. No fever, chills, chest discomfort, palpitations, shortness of breath, nausea, vomiting, abdominal pain, changes in urinary or bowel habits. In the emergency department, CT with progressive bone changes since previous CT concerning for osteomyelitis. hospital course: Patient was initially admitted out of concern for recurrent left foot cellulitis and osteomyelitis due to diabetes in the background of Charcot foot. He was seen by infectious disease who did not feel that there was an active infection and discontinue antibiotics. Recommendations were for brief course of steroids to treat inflammatory component and for outpatient referral to Podiatry. Patient also had arterial duplex which showed moderate left lower extremity stenosis however on clinical exam does have good pulses was seen by vascular surgery recommended following outpatient for possible venous insufficiency but did not feel that findings were related to patient's symptoms. For diabetes with hyperglycemia was treated with basal bolus insulin. For hypertension was treated with atenolol. Patient is feeling better will be discharged home. Time Attestation Discharge Coordination Time (in mins): 32 Quality: Safe Use of Opioids Does Pt have an Active Cancer Diagnosis on the Problem List?: No Quality: Stroke Does the patient have a stroke diagnosis?: No Physical Exam Vital Signs: Vital Signs: Last Vital Signs Temp 97.0 F 04/11/24 07:10 Pulse 80 04/11/24 09:16 Resp 16 04/11/24 07:10 BP 142/72 H 04/11/24 09:16 Pulse Ox 96 04/11/24 07:10 O2 Del Method Room Air 04/11/24 07:10 BMI result Body Mass Index 30.1 Const: General: cooperative, healthy appearing and comfortable Orientation/consciousness: oriented to person, oriented to place and oriented to time HEENT: Head: Yes normal to inspection Neck: Neck: Yes normal visual inspection Carotids: no bruits Chest: Chest palpation & inspection: normal inspection of the chest Resp: Effort & Inspection: normal respiratory effort and able to speak in complete sentences Auscultation: clear to auscultation bilaterally, no crackles, no rales, no rhonchi and no wheezes Cardio: Other: Left lower extremity palpable DP pulse Rate: regular rate Rhythm: regular rhythm Heart sounds: S1 normal heart sound present and S2 normal heart sound present Bruits: no carotid bruits Peripheral pulses: Peripheral pulses 2+ throughout GI: Inspection: Yes normal to inspection Skin: Wounds: no wounds Hair: normal Neuro: General: oriented to person, oriented to place and oriented to time Cranial nerves: Yes CN's II-XII intact bilaterally and Yes Normal hearing present Cognition (Neuro): normal cognition Motor exam (neuro): 5/5 motor strength present throughout Extrem: Other: venous exam: No significant superficial varicosities or spider telangiectasias, minimal edema General: No clubbing, No cyanosis and No edema Psych: Appearance: grossly normal Mental Status: mental status grossly normal Speech and movement: Normal speech and movement present DS: Data Data Completed and Pending Completed studies during hospitalization [Text1]: Procedures Insertion of Infusion Device into Superior Vena Cava, Percutaneous Approach (02/14/24) Ultrasonography of Superior Vena Cava, Guidance (02/14/24) Labs on day of discharge: Laboratory Results - last 24 hr 04/10/24 04/10/24 04/10/24 11:06 16:23 20:05 POC Glucose 187 H 406 H* 301 H 04/11/24 07:13 POC Glucose 138 H Discharge Plan Discharge Anticipated Discharge Date/Time: 04/11/24 09:58 Patient Disposition: Home, Self-Care Discharge Diagnosis: charcot foot Referrals: Ha Wiggins MD [Primary Care Provider] - 1 Week Jer Schofield MD [Physician] - 1 Week Discharge Medications: New prednisone 20 mg tablet 40 mg PO DAILY Qty: 4 0RF Continued (DME) FreeStyle Test Strip See Rx Instructions .ROUTE .MEDSUPPLY Qty: 10 8RF Rx Instructions: three times a day (DME) lancets [FreeStyle Lancets] 28 gauge misc See Rx Instructions .ROUTE .MEDSUPPLY Qty: 100 8RF Rx Instructions: three times a day atenolol 50 mg tablet 50 mg PO DAILY Qty: 90 8RF glyburide 5 mg tablet See Rx Instructions PO .COMPLEX 30 Days Qty: 270 2RF Rx Instructions: Take 1 tab every morning and 2 tabs every evening PO; cholecalciferol (vitamin D3) [Vitamin D3] 125 mcg (5,000 unit) Tablet 125 mcg PO DAILY Jardiance 10 mg tablet 10 mg PO DAILY Qty: 30 1RF Discharge Orders: Discharge Order (Routine); Ordered 04/11/24 Ordered By: Laurent Land Diet: Diabetic diet Activity on Discharge: As tolerated Stand Alone Forms: Patient Portal Discharge page Print Language: Israeli Care Plan Goals: maange charcot foot Health Concerns: charcot foot Plan of Treatment: podiatry dr. amarilys Lucas: Phone:? , address: [address] [place], [place] [id number] 2 more days prednisone Assessment: see above
--- NOTE | 2024-04-11 10:54 | MHC.CM.PN ---
PT WILL DC HOME TODAY WITH RESUMPTION OF [facility] PT TO ARRANGE TRANSPORT
[2024-04-11 11:26] LABS: Glucose, Whole Blood 281 mg/dL (60-115)
== END 2024-04-11 14:01 | disposition home health service (06) | DRG 48 ==
LOC: HO.ED 18:11 → HO.EDOVER 04-08 01:03 → HO.S3 04-09 06:03
PROVIDERS: Physician Assistant; Physician Assistant Medical; Admitting Provider Student in an Organized Health Care Education/Training Program; Emergency Provider Emergency Medicine; PCP Internal Medicine; Visit Provider Internal Medicine
DX: E11.610 Type 2 diabetes mellitus with diabetic neuropathic arthropathy (principal); E11.69 Type 2 diabetes mellitus with other specified complication; M86.9 Osteomyelitis, unspecified; E11.42 Type 2 diabetes mellitus with diabetic polyneuropathy; I10 Essential (primary) hypertension; E78.5 Hyperlipidemia, unspecified; I87.2 Venous insufficiency (chronic) (peripheral); E11.65 Type 2 diabetes mellitus with hyperglycemia; Z79.84 Long term (current) use of oral hypoglycemic drugs; Z79.899 Other long term (current) drug therapy
CPT/HCPCS: 36415; 73701; 80048; 80053; 82947; 83690; 83735; 85025; 85652; 86140; 93926; 97161; 99285; J0878; J1335; J1650; J2543; J2919; J3370; Q9967

== ENCOUNTER → 2024-04-08 00:59 | Outpatient (BNV) | payer OTHER, SELFPAY | PROVIDERS: Admitting Provider Student in an Organized Health Care Education/Training Program; Emergency Provider Emergency Medicine; PCP Internal Medicine; Visit Provider Student in an Organized Health Care Education/Training Program | DX: M79.89 Other specified soft tissue disorders (principal); M14.672 Charcot's joint, left ankle and foot | CPT/HCPCS: 99222; 99232; 99239; 99499 ==

== ENCOUNTER → 2024-04-08 00:59 | Outpatient (BNV) | payer OTHER, SELFPAY | PROVIDERS: Admitting Provider Student in an Organized Health Care Education/Training Program; Emergency Provider Emergency Medicine; PCP Internal Medicine; Visit Provider Physician Assistant | DX: L03.116 Cellulitis of left lower limb (principal); S92.252A Displaced fracture of navicular [scaphoid] of left foot, initial encounter for closed fracture | CPT/HCPCS: 99222 ==

== ENCOUNTER → 2024-04-08 00:59 | Outpatient (BNV) | payer OTHER, SELFPAY | PROVIDERS: Admitting Provider Student in an Organized Health Care Education/Training Program; Emergency Provider Emergency Medicine; PCP Internal Medicine; Visit Provider Surgery | DX: M79.89 Other specified soft tissue disorders (principal); M86.9 Osteomyelitis, unspecified | CPT/HCPCS: 99223 ==

== ENCOUNTER → 2024-04-08 00:59 | Outpatient (BNV) | payer OTHER, SELFPAY | PROVIDERS: Admitting Provider Student in an Organized Health Care Education/Training Program; Emergency Provider Emergency Medicine; PCP Internal Medicine; Visit Provider Internal Medicine | DX: M79.89 Other specified soft tissue disorders (principal) | CPT/HCPCS: 99222 ==

== ENCOUNTER → 2024-04-08 00:59 | Outpatient (BNV) | payer OTHER, SELFPAY | PROVIDERS: Admitting Provider Student in an Organized Health Care Education/Training Program; Emergency Provider Emergency Medicine; PCP Internal Medicine; Visit Provider Surgery Vascular Surgery | DX: M79.89 Other specified soft tissue disorders (principal) | CPT/HCPCS: 99222 ==

== ENCOUNTER 2024-05-03 13:25 | Outpatient (AMB) | payer OTHER, SELFPAY ==
--- NOTE | 2024-05-03 13:56 | A.OFFVIS_ITS ---
Intake Visit Reasons: ED follow up LE swelling Intake Note: ED follow up Left Foot swelling, no wounds. Charcot foot and history of osteomyelitis, Pt states he has had issues with his left foot since JANUARY 2024 AND has been hospitalized twice and was on IV Abx 03/19/24-05/01/24 Accompanied by: Self / Same As Patient Allergies liraglutide Adverse Reaction (Intermediate, Verified 05/03/24 14:01) diarrhea HPI HPI ED follow up LE swelling: Details: Very pleasant 58-year-old gentleman presents for follow-up after hospitalization. He had been seen by a us for swollen left lower extremity. He had been treated for osteomyelitis. At the time of my visit he did have arterial testing. The concern is that he did have an element of Charcot foot. Since discharge has seen Podiatry. He is actually scheduled for a repeat pulmonology physician follow-up on May 20. He is now for vascular follow-up. [facility] Medical History Uncontrolled type 2 diabetes mellitus with hyperglycemia Charcot's joint of foot due to diabetes Swelling of left foot Osteomyelitis of left foot Obesity Type 2 diabetes mellitus with diabetic polyneuropathy Hyperlipidemia LDL goal <100 Essential hypertension Diabetes mellitus with hyperglycemia Surgical History Hx of colonoscopy No history of previous surgery Family History Father No problems noted. Mother No problems noted. Social History Household Members: Family Household Members Other:: 1 Housing: House Alcohol intake: never Patient Tobacco Use Status: Never used Tobacco e-Cigarette/Vaping Use: Never Used Second Hand Smoke Exposure: No service: No Current occupational status: unemployed Cognitive needs: No Hearing needs: No Vision needs: Yes (glasses) Review of Systems Const All systems reviewed & are unremarkable except as noted in HPI and below Reports no additional complaints ENT Reports Normal hearing present Card Denies chest pain, Denies chest pain at rest, Denies chest pain with activity and Denies pedal edema Resp Denies cough GI Denies abdominal pain Musc Denies abnormal gait, Denies muscle cramps and Denies radiating pain into limb Skin/Breast Denies skin ulcer and Denies wounds Neuro Reports Normal hearing present and Denies abnormal gait Psych Reports no additional complaints Physical Exam Const General: cooperative, healthy appearing and comfortable Orientation/consciousness: oriented to person, oriented to place and oriented to time HEENT Head: Yes normal to inspection Neck Neck: Yes normal visual inspection Carotids: no bruits Chest Chest palpation & inspection: normal inspection of the chest Resp Effort & Inspection: normal respiratory effort and able to speak in complete sentences Auscultation: clear to auscultation bilaterally, no crackles, no rales, no rhonchi and no wheezes Cardio Rate: regular rate Rhythm: regular rhythm Heart sounds: S1 normal heart sound present and S2 normal heart sound present Bruits: no carotid bruits Peripheral pulses: Peripheral pulses 2+ throughout GI Inspection: Yes normal to inspection Skin Wounds: no wounds Hair: normal Neuro General: oriented to person, oriented to place and oriented to time Cranial nerves: Yes CN's II-XII intact bilaterally and Yes Normal hearing present Cognition (Neuro): normal cognition Motor exam (neuro): 5/5 motor strength present throughout Extrem Other: venous exam: No significant superficial varicosities or spider telangiectasias, minimal edema General: No clubbing, No cyanosis and No edema Psych Appearance: grossly normal Mental Status: mental status grossly normal Speech and movement: Normal speech and movement present Assessment & Plan Assessment & Plan (1) Swelling of left foot: Code(s): M79.89 - Other specified soft tissue disorders Category: Medical Plan: In short patient has an element of Charcot foot. He is being scheduled by Podiatry for follow-up. He is also on a course of antibiotics as well. In terms of his vascular status his arterial status is within normal limits. I did review his arterial studies and he does have palpable dorsalis pedis pulses. I do not believe that the venous disease is contributing to this. The majority of his issues are his Charcot foot. I would like that to be treated and resolved before I move forward with any additional interventions. Will follow on an as- needed basis. He will call if his leg issues resolve for additional follow-up regarding venous disease. Thank you for allowing us to assist in the his patient's care. Coding Level of Care Code Est Pt Level 3 (61408) Diagnoses Swelling of left foot M79.89
== END 2024-05-03 14:36 | disposition home or self-care (01) ==
PROVIDERS: PCP Internal Medicine; Visit Provider Surgery Vascular Surgery
DX: M79.89 Other specified soft tissue disorders (principal)
CPT/HCPCS: 99213

== ENCOUNTER → 2024-05-03 13:25 | Outpatient (BNVA) | payer OTHER, SELFPAY | PROVIDERS: PCP Internal Medicine; Visit Provider Surgery Vascular Surgery | DX: M79.89 Other specified soft tissue disorders (principal) | CPT/HCPCS: 99212 ==

== ENCOUNTER 2024-09-20 13:07 | Outpatient (AMB) | payer OTHER, SELFPAY ==
[2024-09-20 13:11] VITALS: BP 140/72; PULSE 72; O2SAT 95; BMI 30.8
--- NOTE | 2024-09-20 13:11 | MHC.PC.OV ---
Vital Signs 09/20/24 13:11 Height 5 ft 10 in Weight 215 lb BMI 30.8 BP 140/72 H Blood Pressure Location Lt brachial Position Sitting Pulse 72 Pulse Source Pulse Oximeter Pulse Oximetry (%) 95 Oxygen Delivery Method Room Air Intake Visit Reasons: 6 month f/u- repeat A1C (elevated 12.7) Fly Fishing Guide Required: No Accompanied by: Self / Same As Patient Allergies liraglutide Adverse Reaction (Intermediate, Verified 09/20/24 13:12) diarrhea Medication List - Last Reconciled 09/21/24 by Ha Wiggins MD atenolol 50 mg PO DAILY blood sugar diagnostic (FreeStyle Test strips) three times a day cholecalciferol (vitamin D3) (Vitamin D3) 125 mcg PO DAILY empagliflozin (Jardiance) 10 mg PO DAILY glyburide Take 1 tab every morning and 2 tabs every evening PO; 30 days lancets (FreeStyle Lancets) three times a day Tobacco use date assessed: 03/15/24 Dental Screening Dental Screen Date: 03/15/24 HPI 6 month f/u- repeat A1C (elevated 12.7) HPI Details DM; due for labs; compliant with meds [facility] Medical History Uncontrolled type 2 diabetes mellitus with hyperglycemia Charcot's joint of foot due to diabetes Swelling of left foot Osteomyelitis of left foot Obesity Type 2 diabetes mellitus with diabetic polyneuropathy Hyperlipidemia LDL goal <100 Essential hypertension Diabetes mellitus with hyperglycemia Surgical History Hx of colonoscopy No history of previous surgery Family History Father No problems noted. Mother No problems noted. Social History Household Members: Family Household Members Other:: 1 Housing: House Alcohol intake: never Patient Tobacco Use Status: Never used Tobacco Tobacco use type: Cigarette e-Cigarette/Vaping Use: Never Used Second Hand Smoke Exposure: No service: No Current occupational status: unemployed Cognitive needs: No Hearing needs: No Vision needs: Yes (glasses) Questionnaire Thrive Questionnaire Date Thrive assessed: 04/08/24 AUDIT C Alcohol Use Questionnaire (AUDIT-C) 3. How often do you have six or more drinks on one occasion?: Never Total Score: 0 OSCAR-7 AMB Questionnaire OSCAR-7 Date OSCAR - 7 assessed: 03/15/24 Source: Developed by Drs. Tom Cota, Domenica Fitzgerald, Michael Guido and colleagues, with an educational michael from [employer]. Review of Systems Const Denies chills, Denies headache(s) and Denies weight loss ENT Denies headache(s) Card Denies chest pain, Denies syncope, Denies irregular heart rhythm and Denies dyspnea Resp Denies chest congestion, Denies cough and Denies dyspnea GI Denies abdominal pain, Denies change in stool character, Denies nausea and Denies vomiting Musc Denies deformity and Denies joint swelling Neuro Denies syncope and Denies headache(s) Physical exam (Primary Care) Vital Signs: Last Vital Signs Pulse 72 09/20/24 13:11 BP 140/72 H 09/20/24 13:11 Pulse Ox 95 09/20/24 13:11 Oxygen Delivery Method Room Air 09/20/24 13:11 BMI result Body Mass Index 30.8 Tobacco/Smoking Status: Tobacco use Status Tobacco use date assessed 03/15/24 09/20/24 13:14 Patient Tobacco Use Status Never used Tobacco 09/20/24 13:14 Tobacco use type Cigarette 09/20/24 13:14 e-Cigarette/Vaping Use Never Used 09/20/24 13:14 Thrive Assessment: Date of Thrive Assessment Date Thrive assessed 04/08/24 09/20/24 13:14 Const General: cooperative, comfortable, no acute distress and alert Neck Neck: Yes no lymphadenopathy Thyroid: Thyroid normal Resp Effort & Inspection: normal respiratory effort Auscultation: clear to auscultation bilaterally Percussion: percussion normal Cardio Jugular venous distension: no JVD Palpation: normal PMI Rate: regular rate Rhythm: regular rhythm Heart sounds: S1 normal heart sound present and S2 normal heart sound present GI Inspection: Yes normal to inspection Palpation (GI): No hepatosplenomegaly present Skin General skin exam: no rashes or lesions noted Extrem General: Yes no clubbing, cyanosis or edema Results AMB Hemoglobin A1c AMB Hemoglobin A1c 7.8 % Last Edit by Nimisha Yang CMA on 09/20/24 13:28 Results Reviewed Results Reviewed: Laboratory Last Values Hgb A1c (Clinic) 7.8 % (4.0-6.0) H 09/20/24 13:22 Coding Level of Care Code Est Pt Level 3 (79610) Diagnoses Type 2 diabetes mellitus with diabetic polyneuropathy, without long-term current use of insulin E11.42 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 use: without care home use Assessment & Plan Assessment & Plan (1) Type 2 diabetes mellitus with diabetic polyneuropathy: Code(s): E11.42 - Type 2 diabetes mellitus with diabetic polyneuropathy Category: Medical Qualifiers: Diabetes mellitus care home insulin use: without head men's golf coach use Qualified Code(s): E11.42 - Type 2 diabetes mellitus with diabetic polyneuropathy Plan: stable; same rx; do labs Orders: Orders XR foot LT 2V 09/20/24 M79.672 - Pain in left foot Complete Blood Count Auto Diff 09/20/24 Z13.0 - Encounter for screening for diseases of the blood and blood-forming organs and certain disorders involving the immune mechanism Lipid Panel 09/20/24 Z13.220 - Encounter for screening for lipoid disorders AMB Hemoglobin A1c 09/20/24 E11.42 - Type 2 diabetes mellitus with diabetic polyneuropathy Comprehensive [place]. Panel Fast 09/20/24 Z13.9 - Encounter for screening, unspecified Hemoglobin A1c 09/20/24 R73.9 - Hyperglycemia, unspecified Microalbumin, Random (w Creat) 09/20/24 E11.69 - Type 2 diabetes mellitus with other specified complication, E66.01 - Morbid (severe) obesity due to excess calories Thyroid Stimulating Hormone 09/20/24 Z13.29 - Encounter for screening for other suspected endocrine disorder
== END 2024-09-20 13:38 | disposition home or self-care (01) ==
LOC: HO.HMCH 13:07
PROVIDERS: PCP Internal Medicine; Visit Provider Internal Medicine
DX: E11.42 Type 2 diabetes mellitus with diabetic polyneuropathy (principal)

== ENCOUNTER 2024-09-20 13:07 | Outpatient (REF) | payer OTHER, SELFPAY | END 2024-09-20 13:08 | disposition home or self-care (01) | LOC: HO.XRAY 13:07 | PROVIDERS: PCP Internal Medicine; Visit Provider Internal Medicine | DX: M79.672 Pain in left foot (principal); E11.42 Type 2 diabetes mellitus with diabetic polyneuropathy; E11.69 Type 2 diabetes mellitus with other specified complication; Z13.0 Encounter for screening for diseases of the blood and blood-forming organs and certain disorders involving the immune mechanism; Z13.220 Encounter for screening for lipoid disorders; Z12.9 Encounter for screening for malignant neoplasm, site unspecified | CPT/HCPCS: 73620; 83036; 99212 ==

== ENCOUNTER → 2024-12-21 13:19 | Outpatient (BNVA) | payer OTHER, SELFPAY | PROVIDERS: PCP Internal Medicine; Visit Provider Internal Medicine | DX: E11.65 Type 2 diabetes mellitus with hyperglycemia (principal) | CPT/HCPCS: 99212 ==

== ENCOUNTER 2025-02-14 10:11 | Outpatient (REF) | payer OTHER, SELFPAY ==
[2025-02-14 10:32] LABS: MANUAL DIFF FLAG NO
[2025-02-14 11:10] LABS: Basophils Absolute Auto 0.1 X10*3/uL (0.0-0.2); Basophils Percent Auto 0.6 % (0-2); Eosinophils Absolute Auto 0.1 X10*3/uL (0.0-0.4); Eosinophils Percent Auto 1.3 % (0-4); Hematocrit 48.1 % (42.0-52.0); Hemoglobin 16.3 g/dl (14.0-18.0); Imm Gran Abs Auto 0.04 X10*3/uL (0.00-0.03); Imm Gran Pct Auto 0.4 % (0.0-0.4); Lymphocytes Absolute Auto 1.9 X10*3/uL (1.2-4.9); Lymphocytes Percent Auto 19.6 % (20-40); Mean Corpuscular HGB Conc 33.9 g/dl (31.0-36.0); Mean Corpuscular Volume 88.6 fL (80.0-98.0); Mean Platelet Volume 10.2 fL (9.4-12.4); Monocytes Absolute Auto 0.7 X10*3/uL (0.1-1.2); Neutrophils Absolute Auto 6.8 x10*3/uL (2.0-8.3); Neutrophils Percent Auto 71.1 % (45-73); Platelet Count 205 X10*3/uL (160-400); Red Blood Count 5.43 X10*6/uL (4.60-5.80); Red Cell Distribution Width 14.1 % (11.0-16.0); White Blood Count 9.6 X10*3/uL (4.8-10.8)
[2025-02-14 11:22] LABS: Estimated Average Glucose 186 mg/dL; Hemoglobin A1C 275.4586 umol/L; Hemoglobin A1c % 8.1 % (<6.0); Total Hemoglobin (HGBA1C) 4238.5252 umol/L
[2025-02-14 11:57] LABS: Creatinine Urine 67.79 mg/dL; Microalbum/Creatinine Ratio Ur 165.2 ug/mg cr (<30)
[2025-02-14 12:00] LABS: Alanine Aminotransferase 11 U/L (0-40); Albumin Level 4.4 g/dL (3.5-5.0); Alkaline Phosphatase 70 U/L (39-117); Anion Gap 10 (12-20); Aspartate Amino Transferase 13 U/L (5-37); Bilirubin Total 0.7 mg/dL (0.0-1.0); Blood Urea Nitrogen 15 mg/dL (9-16); Calcium 9.9 mg/dL (8.4-10.2); Carbon Dioxide 26 mmol/L (22-29); Chloride 108 mmol/L (96-108); Cholesterol 298 mg/dL (<200); Estimated Glomerular Filt Rate > 60; Glucose Fasting 160 mg/dL (60-99); HDL Cholesterol 37 mg/dL (>40); LDL Cholesterol Calculated 218 mg/dL (<100); Potassium 4.3 mmol/L (3.3-5.1); Sodium 140 mmol/L (135-145); Total Protein 8.5 g/dL (6.5-8.0); Triglycerides 218 mg/dL (<150)
[2025-02-14 12:01] LABS: Thyroid Stimulating Hormone 2.18 uIU/mL (0.32-4.0)
== END 2025-02-14 10:12 | disposition home or self-care (01) ==
LOC: HO.LAB 10:11
PROVIDERS: PCP Internal Medicine; Visit Provider Internal Medicine
DX: Z13.0 Encounter for screening for diseases of the blood and blood-forming organs and certain disorders involving the immune mechanism (principal); Z13.220 Encounter for screening for lipoid disorders; E11.69 Type 2 diabetes mellitus with other specified complication; E66.01 Morbid (severe) obesity due to excess calories; Z13.29 Encounter for screening for other suspected endocrine disorder; Z13.9 Encounter for screening, unspecified; R73.9 Hyperglycemia, unspecified
CPT/HCPCS: 36415; 80053; 80061; 82043; 82570; 83036; 84443; 85025

== ENCOUNTER 2025-03-22 11:24 | Outpatient (AMB) | payer OTHER, SELFPAY ==
[2025-03-22 11:28] VITALS: BP 150/82; PULSE 76; RESP 16; TEMP 37; O2SAT 99; BMI 31.5
--- NOTE | 2025-03-22 11:28 | MHC.PC.OV ---
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 Required: No Accompanied by: Mother Allergies liraglutide Adverse Reaction (Intermediate, Verified 03/22/25 11:54) diarrhea Medication List - Last Reconciled 03/22/25 by JESUS Guzman atenolol 50 mg PO DAILY blood sugar diagnostic (FreeStyle Test strips) three times a day cholecalciferol (vitamin D3) (Vitamin D3) 125 mcg PO DAILY empagliflozin (Jardiance) 10 mg PO DAILY glyburide Take 1 tab every morning and 2 tabs every evening PO; 30 days lancets (FreeStyle Lancets) three times a day Tobacco use date assessed: 03/22/25 Dental Screening Dental Screen Date: 03/22/25 Did you have a dental visit in the last 12 months?: No Did you have a dental problem in the last 6 months where you did not have access to dental care?: No Was dental information given to patient?: Patient has dentist HPI annual exam/aurelio Dr Wiggins HPI Details Patient is presenting for annual physical Dentist: no, more than a year Eye: Done in October Snellen: Right: Left: Corrected vision: glasses STI screening: Colonoscopy: due when he is 62 years old Pap Smer:n/a PHQ-9: Flu:decline COVID:decline Tdap:decline Diet: He is has been cutting out certain foods that are affecting his blood sugar and cholesterol Exercise: Charcot foot diagnosis unable to exercise During the visit multiple chronic conditions including type 2 diabetes management, Charcot Foot, heartburn, and a persistent rash following recent antibiotic therapy were addressed. Patient reports improvement in his glucose levels. Reports that he has seen glucose levels of 120-139. However, the patient most recent A1c is 8.1%-the showing an uncontrolled diabetes the patient is currently on glipizide 5 mg, 1 tab in the morning and 2 tabs in the evening, Jardiance 10 mg, we will increase this to 25 mg and recheck A1c in 3 months. Despite his effort in modifying his diet, challenges with heartburn persist, with past episodes occurring sporadically since 2005. The current episode started about a month ago with typical symptoms of GERD, described as pressure on the chest, and sensitivity to previously attempted treatments such as omeprazole, Pepcid caused the patient to have massive diarrhea. Reports that he was being managed by GI, but nothing worked so far. We will try the patient on sucralfate 1 g q.i.d. The patient also presents with a cutaneous rash that developed shortly after completing a course of antibiotics meant to treat a foot infection. This rash has been persistent since November and is suspected to be fungal. The patient expresses anxiety during clinical visits, potentially contributing to elevated blood pressure readings in the office despite stable readings at home. Ongoing foot care is required due to past ulceration and muscle atrophy, necessitating the use of a diabetic shoes. The patient will benefit from transitioning from current [employer] Boot and into 1 pair of diabetic shoes with 3 pair of custom molded diabetic insoles. [facility] Medical History (Updated 03/22/25 @ 18:09 by JESUS Guzman) Charcot's joint of foot due to diabetes Uncontrolled type 2 diabetes mellitus with hyperglycemia Swelling of left foot Osteomyelitis of left foot Obesity Type 2 diabetes mellitus with diabetic polyneuropathy Hyperlipidemia LDL goal <100 Essential hypertension Diabetes mellitus with hyperglycemia Surgical History Hx of colonoscopy No history of previous surgery Family History Father No problems noted. Mother No problems noted. Social History Household Members: Family Household Members Other:: 1 Housing: House Alcohol intake: never Patient Tobacco Use Status: Never used Tobacco Tobacco use type: Cigarette e-Cigarette/Vaping Use: Never Used Second Hand Smoke Exposure: No service: No Current occupational status: unemployed Cognitive needs: No Hearing needs: No Vision needs: Yes (glasses) Questionnaire PHQ-9 Over the last 2 weeks, how often have you been bothered by any of the following problems? 1. Little interest or pleasure in doing things: not at all 2. Feeling down, depressed, or hopeless: not at all 3. Trouble falling or staying asleep, or sleeping too much: not at all 4. Feeling tired or having little energy: not at all 5. Poor appetite or overeating: not at all 6. Feeling bad about yourself - or that you are a failure or have let yourself or your family down: not at all 7. Trouble concentrating on things, such as reading the newspaper or watching television: not at all 8. Moving or speaking so slowly that other people could have noticed. Or the opposite - being so fidgety or restless that you have been moving around a lot more than usual: not at all 9. Thoughts that you would be better off or of hurting yourself in some way: not at all Total score: 0 Depression Screening Interpretation: Negative Depression Screening Done: Yes Source: Developed by Drs. Tom Cota, Domenica Fitzgerald, Michael Guido and colleagues, with an educational michael from [employer]. Thrive Questionnaire Date Thrive assessed: 03/22/25 I am a: Patient What is your living situation today?: I have a steady place to live Within the past 12 months, did the food you bought not last and you didn't have the money to get more?: Never true Within the past 12 months, did you worry whether your food would run out before you got money to buy more?: Never true Do you have trouble paying for medicines?: No Do you have trouble getting transportation to medical appointments?: No Do you have trouble paying your heating and electricity bill?: No Do you have trouble taking care of your child, family member or friend?: No Do you have trouble with day-to-day activities such as bathing, preparing meals, shopping, managing finances, etc.?: No Are you currently unemployed and looking for a job?: Yes Are you interested in more education?: No Please select the resources that you would like help with: None Currently or been in a relationship where the following occur: No concerns reported THRIVE Score: 0 AUDIT C Alcohol Use Questionnaire (AUDIT-C) 1. How often do you have a drink containing alcohol?: Never Total Score: 0 Score Reviewed/Action Taken: No OSCAR-7 AMB Questionnaire OSCAR-7 Date OSCAR - 7 assessed: 03/22/25 Feeling nervous, anxious, or on edge: 0 = Not at all Not being able to stop or control worryin = Not at all Worrying too much about different things: 0 = Not at all Trouble relaxin = Not at all Being so restless that it is hard to sit still: 0 = Not at all Becoming easily annoyed or irritable: 0 = Not at all Feeling afraid as if something awful might happen: 0 = Not at all Total OSCAR-7 score (0-4 normal; 5-9 mild; 10-14 moderate; 15-21 severe): 0 Source: Developed by Drs. Tom Cota, Domenica Fitzgerald, Michael Guido and colleagues, with an educational micahel from [employer]. Review of Systems Const Details: - General: Denies fever or chills. - Cardiovascular: Reports increased heartburn sensation, particularly troublesome episodes as recently as one month ago. - Gastrointestinal: Reports longstanding heartburn with episodes of severe discomfort. - Dermatological: Reports rash following antibiotic therapy, persistent and suspected to be fungal. - Endocrinology: Manages diabetes with reported morning blood sugars improving. - Musculoskeletal: Reports persisting foot issues related to past ulcer and orthotic foot adaptations. - Psychiatric: Reports stress and anxiety particularly related to healthcare visits. Denies chills, Denies fever(s) and Denies headache(s) Eyes Denies loss of vision ENT Denies vertigo, Denies dizziness, Denies headache(s) and Denies sore throat Card Denies chest pain, Reports pedal edema, Reports leg edema and Denies lightheadedness Resp Denies cough, Denies hemoptysis and Denies wheezing GI Denies abdominal pain, Denies melena, Denies constipation, Reports heartburn, Denies diarrhea, Reports nausea and Denies vomiting Denies dysuria, Denies urinary frequency and Denies urinary urgency Musc Details: Charcot foot (left) [employer] Boot docked. Right foot and lower legs pitting edema Denies arthralgias, Denies joint swelling, Denies numbness and Denies tingling Skin/Breast Reports rash (Right lower leg and foot fungal appearing rash) Neuro Denies Abnormal speech present, Denies behavioral changes, Denies vertigo, Denies dizziness, Denies headache(s), Denies loss of vision, Denies memory loss, Denies numbness and Denies tingling Psych Reports anxiety (And stress), Denies behavioral changes, Denies depression, Denies memory loss and Denies panic attacks Ortiz/Lymph Denies easy bleeding and Denies easy bruising Aller/Immun Denies wheezing Physical exam (Primary Care) Vital Signs: Last Vital Signs Temp 98.6 F 03/22/25 11:28 Pulse 76 03/22/25 11:28 Resp 16 03/22/25 11:28 BP 126/82 03/22/25 12:18 Pulse Ox 99 03/22/25 11:28 Oxygen Delivery Method Room Air 03/22/25 11:28 BMI result Body Mass Index 31.5 Tobacco/Smoking Status: Tobacco use Status Tobacco use date assessed 03/22/25 03/22/25 11:37 Patient Tobacco Use Status Never used Tobacco 03/22/25 11:37 Tobacco use type Cigarette 03/22/25 11:37 e-Cigarette/Vaping Use Never Used 03/22/25 11:37 PHQ-9: PHQ-9 Score PHQ-9: Total score 0 03/22/25 17:49 Depression Screening Interpretation: Negative Thrive Assessment: Date of Thrive Assessment Date Thrive assessed 03/22/25 03/22/25 11:37 Currently or been in a relationship where the following occur: No concerns reported Const Other: - Vital Signs- Blood pressure 126/82; pulse 67. - Skin- Observed swelling in the foot and a rash; redness from suspected fungal causes between toes. - Abdominal- Palpation showed pressure sensation without severe tenderness; belching reported on palpation of epigastric region. General: healthy appearing, no acute distress, alert and awake Nutritional Appearance: well nourished Orientation/consciousness: oriented to person, oriented to place and oriented to time HENMT Ears: TM's normal bilaterally General nose exam: Normal nasal mucous membranes and turbinates present Eyes Conjunctivae: conjunctivae normal Sclerae: sclerae normal Pupils: Equal, round and reactive pupils present Neck Neck: Yes no lymphadenopathy and Yes no JVD Thyroid: Thyroid normal Carotids: no bruits Resp Effort & Inspection: normal respiratory effort and not tachypneic Auscultation: no crackles, no rales, no rhonchi and no wheezes Cardio Rate: regular rate Rhythm: regular rhythm Heart sounds: no murmurs and normal S1 and S2 GI Palpation (GI): Soft to palpation, nontender, no hepatomegaly and no splenomegaly Auscultation: normal bowel sounds Skin General skin exam: no rashes or lesions noted and dry skin Neuro General: oriented to person, oriented to place and oriented to time Cranial nerves: Yes Equal, round and reactive pupils present Speech: No Abnormal speech present Gait exam (Neuro): Normal gait present Motor exam (neuro): no tremor noted Extrem Right upper extremity: full ROM Left upper extremity: full ROM Right lower extremity: full ROM, edema, ankle Details: swelling and foot Details: edema Left lower extremity: full ROM and lower leg ([employer] Boot INTACT); no edema Psych Mental Status: mental status grossly normal Speech and movement: Normal speech and movement present Affect: normal affect Attitude: cooperative Thought process: Normal thought process present Results Reviewed Results Reviewed: Laboratory Tests 02/14/25 02/14/25 10:30 10:31 WBC 9.6 RBC 5.43 D Hgb 16.3 D Hct 48.1 D MCV 88.6 MCH 30.0 MCHC 33.9 RDW 14.1 Plt Count 205 MPV 10.2 Sodium 140 Potassium 4.3 Chloride 108 Carbon Dioxide 26 Anion Gap 10 L BUN 15 Creatinine 1.21 Estim Creat Clear Calc Not Reportable Estimated GFR > 60 Fasting Glucose 160 H Estimat Average Glucose 186 Hemoglobin A1c % 8.1 H Calcium 9.9 D Total Bilirubin 0.7 AST 13 ALT 11 Alkaline Phosphatase 70 Total Protein 8.5 H Albumin 4.4 Triglycerides 218 H Cholesterol 298 H LDL Cholesterol, Calc 218 H HDL Cholesterol 37 L TSH 2.18 Urine Creatinine 67.79 Urine Microalbumin 112.0 Microalb/Creat Ratio 165.2 H Coding Level of Care Code Est Pt Prev Care 40-64y(84032) Diagnoses Physical exam Z00.00 Type 2 diabetes mellitus with diabetic polyneuropathy, without long-term current use of insulin E11.42 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 raw 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 Charcot's joint of foot due to diabetes E11.610 Mixed hypercholesterolemia and hypertriglyceridemia E78.2 Osteomyelitis of left foot, unspecified type M86.9 Osteomyelitis type: unspecified type Osteomyelitis location: foot Laterality: left Class 1 obesity with serious comorbidity and body mass index (BMI) of 31.0 to 31.9 in adult, unspecified obesity type E66.811; Z68.31 Obesity type: unspecified obesity type Obesity classification: adult class 1 (BMI 30 - 34.9) Body mass index: BMI 31.0-31.9 Serious obesity comorbidity presence: with serious comorbidity Swelling of right foot M79.89 Time Spent (min) 43 Assessment & Plan Assessment & Plan (1) Physical exam: Code(s): Z00.00 - Encounter for general adult medical examination without abnormal findings Category: Medical Plan: preventative guidelines and recent labs reviewed with the patient. The patient has not seen a dentist within a year and was recommend to make an appointment. He is up-to-date on his eye exam and is not due for his colonoscopy until he is 62 years old. The patient declines most vaccines. 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 He is currently on Jardiance 10 mg and glipizide 5 mg, 1 tab in the morning and 2 tabs in the evening. Jardiance was increased 25 mg daily, we will recheck labs in 3 months (3) Charcot's joint of foot due to diabetes: Code(s): E11.610 - Type 2 diabetes mellitus with diabetic neuropathic arthropathy Category: Medical Plan: The patient is currently wearing a [employer] Boot on his left foot ( Charcot foot). The patient right foot has been beer in most of his weight, a result patient is having muscle atrophy in his left leg and would benefit from a peer of diabetic shoes with 3 pair of custom molded diabetic insoles. (4) Mixed hypercholesterolemia and hypertriglyceridemia: Code(s): E78.2 - Mixed hyperlipidemia Category: Medical Plan: The patient triglycerides, total cholesterol, LDL are all elevated. And lengthy discussion about possibly starting cholesterol-lowering medication. The patient reports that he was on statins before and had severe muscle pain and would like to make dietary changes to bring his cholesterol down instead of going on any medication. Patient reports that he had a rough couple of months prior and was unable to be active or eat healthy. We will recheck a lipid panel in 3 months to track the patient progress and advise (5) Osteomyelitis: Comment: He is tolerating antibiotics but foot swelling bothersome. Code(s): M86.9 - Osteomyelitis, unspecified Category: Medical Qualifiers: Osteomyelitis type: unspecified type Osteomyelitis location: foot Laterality: left Qualified Code(s): M86.9 - Osteomyelitis, unspecified Plan: The patient was treated with a 12 week course of antibiotics and has been stable since with no signs of infection. (6) Obesity: Code(s): E66.9 - Obesity, unspecified Category: Medical Qualifiers: Obesity type: unspecified obesity type Obesity classification: adult class 1 (BMI 30 - 34.9) Body mass index: BMI 31.0-31.9 Serious obesity comorbidity presence: with serious comorbidity Qualified Code(s): E66.811 - Obesity, class 1; Z68.31 - Body mass index [BMI] 31.0-31.9, adult Plan: Reinforced low-fat/cholesterol diet and activity as tolerated (7) Swelling of right foot: Code(s): M79.89 - Other specified soft tissue disorders Category: Medical Plan: Encouraged the patient to wear compression stocking and elevate in his right leg Orders: Orders Comprehensive [place]. Panel Fast 3 Months E11.65 - Type 2 diabetes mellitus with hyperglycemia, E66.9 - Obesity, unspecified, E78.5 - Hyperlipidemia, unspecified, M79.89 - Other specified soft tissue disorders, Z00.00 - Encounter for general adult medical examination without abnormal findings TSH reflex Free T4 3 Months E11.65 - Type 2 diabetes mellitus with hyperglycemia, E66.9 - Obesity, unspecified, E78.5 - Hyperlipidemia, unspecified, M79.89 - Other specified soft tissue disorders, Z00.00 - Encounter for general adult medical examination without abnormal findings Complete Blood Count Auto Diff 3 Months E11.65 - Type 2 diabetes mellitus with hyperglycemia, E66.9 - Obesity, unspecified, E78.5 - Hyperlipidemia, unspecified, M79.89 - Other specified soft tissue disorders, Z00.00 - Encounter for general adult medical examination without abnormal findings Lipid Panel 3 Months E11.65 - Type 2 diabetes mellitus with hyperglycemia, E66.9 - Obesity, unspecified, E78.5 - Hyperlipidemia, unspecified, M79.89 - Other specified soft tissue disorders, Z00.00 - Encounter for general adult medical examination without abnormal findings Vitamin D 25-OH Total 3 Months E11.65 - Type 2 diabetes mellitus with hyperglycemia, E66.9 - Obesity, unspecified, E78.5 - Hyperlipidemia, unspecified, M79.89 - Other specified soft tissue disorders, Z00.00 - Encounter for general adult medical examination without abnormal findings Glucose Fasting 3 Months E11.65 - Type 2 diabetes mellitus with hyperglycemia, E66.9 - Obesity, unspecified, E78.5 - Hyperlipidemia, unspecified, M79.89 - Other specified soft tissue disorders, Z00.00 - Encounter for general adult medical examination without abnormal findings Hemoglobin A1c 3 Months E11.65 - Type 2 diabetes mellitus with hyperglycemia, E66.9 - Obesity, unspecified, E78.5 - Hyperlipidemia, unspecified, M79.89 - Other specified soft tissue disorders, Z00.00 - Encounter for general adult medical examination without abnormal findings UA CC w/rflx Micro + Cult 3 Months E11.65 - Type 2 diabetes mellitus with hyperglycemia, E66.9 - Obesity, unspecified, E78.5 - Hyperlipidemia, unspecified, M79.89 - Other specified soft tissue disorders, Z00.00 - Encounter for general adult medical examination without abnormal findings Medications: New sucralfate 1 g PO QIDACHS 120 tabs 2RF empagliflozin (Jardiance) 25 mg PO QAM 90 tabs 3RF [1 pair of diabetic shoes] As directed 1 ea 0RF E11.42 - Type 2 diabetes mellitus with diabetic polyneuropathy, E11.610 - Type 2 diabetes mellitus with diabetic neuropathic arthropathy clotrimazole-betamethasone 1-0.05 % 1 appl topical BID 45 grams 3RF [3 pair of custom-molded diabetic insoles] As directed 3 ea 0RF E11.42 - Type 2 diabetes mellitus with diabetic polyneuropathy, E11.610 - Type 2 diabetes mellitus with diabetic neuropathic arthropathy Refilled glyburide Take 1 tab every morning and 2 tabs every evening PO; 30 days 270 tabs 2RF E11.65 - Type 2 diabetes mellitus with hyperglycemia Patient Instructions: patient to follow up in 3 months, please complete scheduled labs prior to appointment
[2025-03-22 12:18] VITALS: BP 126/82
== END 2025-03-22 12:47 | disposition home or self-care (01) ==
LOC: HO.HMCH 11:25
DX: Z00.00 Encounter for general adult medical examination without abnormal findings (principal); E11.42 Type 2 diabetes mellitus with diabetic polyneuropathy; E11.610 Type 2 diabetes mellitus with diabetic neuropathic arthropathy; M86.9 Osteomyelitis, unspecified; E66.811 Obesity, class 1; E78.2 Mixed hyperlipidemia; Z68.31 Body mass index [BMI] 31.0-31.9, adult; M79.89 Other specified soft tissue disorders

== ENCOUNTER → 2025-03-22 11:24 | Outpatient (BNVA) | payer OTHER, SELFPAY | DX: Z00.00 Encounter for general adult medical examination without abnormal findings (principal); E11.42 Type 2 diabetes mellitus with diabetic polyneuropathy; E11.610 Type 2 diabetes mellitus with diabetic neuropathic arthropathy; E78.2 Mixed hyperlipidemia; M86.9 Osteomyelitis, unspecified; E66.811 Obesity, class 1; Z68.31 Body mass index [BMI] 31.0-31.9, adult; M79.89 Other specified soft tissue disorders; Z79.84 Long term (current) use of oral hypoglycemic drugs | CPT/HCPCS: 99396 ==